=== PATIENT | male | born 1935 | race Caucasian/White ===

== ENCOUNTER 2017-05-11 10:49 | Outpatient (RCR) | payer MEDICARE, OTHER, SELFPAY ==
[2017-05-11 11:11] LABS: Prothrombin Time Fingerstick 29.5 SEC (11.9-14.4)
== END 2017-05-11 11:00 | disposition home or self-care (01) ==
LOC: MTLAB 10:49
PROVIDERS: Family Provider Family Medicine; PCP Family Medicine; Visit Provider Internal Medicine Cardiovascular Disease
DX: I48.0 Paroxysmal atrial fibrillation (principal); Z79.899 Other long term (current) drug therapy
CPT/HCPCS: 36416; 85610

== ENCOUNTER 2017-06-07 13:50 | Outpatient (RCR) | payer MEDICARE, OTHER, SELFPAY ==
[2017-06-07 14:06] LABS: Prothrombin Time Fingerstick 28.3 SEC (11.9-14.4)
== END 2017-06-07 15:00 | disposition home or self-care (01) ==
LOC: MTLAB 13:50
PROVIDERS: Family Provider Family Medicine; PCP Family Medicine; Visit Provider Internal Medicine Cardiovascular Disease
DX: I48.0 Paroxysmal atrial fibrillation (principal); Z79.899 Other long term (current) drug therapy
CPT/HCPCS: 36416; 85610

== ENCOUNTER 2017-08-10 14:01 | Inpatient (IN) | payer MEDICARE, OTHER, SELFPAY ==
[2017-08-10 14:03] VITALS: BP 181/94; PULSE 64; RESP 17; TEMP 36.9; O2SAT 97; BMI 34.9
[2017-08-10] MEDS: morphine 10 MG/ML Syringe 8 MG IM (15:17)
--- NOTE | 2017-08-10 15:30 | RAD_ITS ---
STUDY: X-RAY - LUMBAR SPINE REASON FOR EXAM: Male, 82 years old. Low back pain. TECHNIQUE: 3 view(s) of the lumbar spine were obtained. COMPARISON: None FINDINGS: Normal lumbar lordosis. There is no substantial scoliosis. There is a normal alignment of the vertebrae. There is diffuse demineralization with multi-level endplate spondylosis. Mild loss of height of the L1 vertebrae. There is atherosclerotic calcification of the abdominal aorta without a demonstrated aneurysm. RAD/Lumbar Spine 2 or 3 Views IMPRESSION: Degenerative changes of the spine, as detailed above. Mild loss of height of the L1 vertebrae. Electronically Signed: Osman Donohue MD at 16:02 EDT Tel [phone], Service support ,
[2017-08-10] MEDS: Ondansetron ODT 4 MG Tablet PO (16:33)
[2017-08-10] MEDS: oxyCODONE 5 MG Tablet PO (16:33)
[2017-08-10 17:20] VITALS: BMI 35.0
[2017-08-10 17:29] VITALS: BP 180/88; PULSE 55; TEMP -8.8; TEMP 16; O2SAT 94
--- NOTE | 2017-08-10 17:33 | NURSING ---
208 OBS BACK PAIN KITTOE
--- NOTE | 2017-08-10 17:48 | ED.DCSUM_ITS ---
- ER Visit Summary Date of Service: 08/10/17 Chief Complaint: Back pain History of Present Illness: The patient is a [address] Wilfrid Gregory and Dr. Espinal. Reports that he had an epidural injection by Dr. Garcia 6 days ago and he was doing much better since that time. Reports that today he tried to lift the tongue of the trailer onto his truck hitch and felt a pop in his back. Also reports that he heard a crack with this. Since that time he has had an aching pain that is 10 out of 10 with movement and 7 out of 10 when he remains still. No radiation to his legs. No numbness or weakness. No problems with his bowels or his bladder. He denies any fever, chills, abdominal pain, or other red flags. Physical Examination: Vitals: Stable. Afebrile. General: A&O x 3. NAD. Cardiovascular exam: Irregular rhythm with a 2 out of 6 systolic murmur. Respiratory exam: Clear to auscultation bilaterally. No wheezes or stridor. Abdominal exam: Soft, nontender, nondistended, normal bowel sounds. No peritoneal signs. Back: Diffuse moderate tenderness to palpation over the lumbar spine and the paraspinous musculature in the lumbar region. No point tenderness. Negative straight leg bilaterally. 5/5 DF, PF, EHL bilaterally. Normal sensation to light touch throughout. Extremity: No clubbing, cyanosis, or edema. 1+ dorsalis pedis pulse bilaterally. Test Results: LS spine x-rays show chronic changes. Emergency Department Course and Treatment: Patient was treated the dose of morphine IM. He was given Zofran and oxycodone p.o. He is unable to even sit up in bed let alone walk. Treatment Plan: The patient was discussed with Dr. Washington. He will be admitted to the hospital for further evaluation and treatment. Disposition: Admitted in stable condition. Impression: 1. Intractable back pain. 2. Inability to ambulate. This note was generated with [employer] dictation software. It may contain incorrect words, spelling, and punctuation that were not noted in review of the chart prior to signing ED Disposition - Plan for ED Patient: Chief Complaint: Back
--- NOTE | 2017-08-10 17:50 | PCM.HP.STD ---
Problem List (1) Acute back pain Status: Acute Qualifiers: Back pain location: low back pain (2) Abnormal electrocardiogram Status: Chronic (3) Atherosclerotic heart disease of [place] coronary artery without angina pectoris Status: Chronic Qualifiers: Comment: 06/2005 taxus stent to LAD . (4) Atrial fibrillation Status: Chronic Qualifiers: Atrial fibrillation type: chronic Qualified Code(s): I48.2 - Chronic atrial fibrillation (5) CAD (coronary artery disease) Status: Chronic (6) Chest heaviness Status: Chronic (7) GERD (gastroesophageal reflux disease) Status: Chronic (8) HLD (hyperlipidemia) Status: Chronic Qualifiers: (9) HLD (hyperlipidemia) Status: Chronic (10) HTN (hypertension) Status: Chronic Qualifiers: Hypertension type: essential hypertension Qualified Code(s): I10 - Essential (primary) hypertension (11) HTN (hypertension) Status: Chronic Qualifiers: Hypertension type: essential hypertension Qualified Code(s): I10 - Essential (primary) hypertension (12) Heart palpitations Status: Chronic (13) History of coronary artery stent placement Status: Chronic (14) History of coronary artery stent placement Status: Chronic Comment: 06/2005 taxus stent to LAD . (15) History of hypothyroidism Status: Chronic (16) Iatrogenic hypothyroidism Status: Chronic (17) group home current use of anticoagulant Status: Chronic (18) Obesity (BMI 30.0-34.9) Status: Chronic (19) Osteoarthritis Status: Chronic Qualifiers: Osteoarthritis location: multiple joints Osteoarthritis type: primary Qualified Code(s): M15.0 - Primary generalized (osteo)arthritis (20) PAF (paroxysmal atrial fibrillation) Status: Chronic (21) Pain Status: Chronic (22) Palpitations Status: Chronic (23) Paroxysmal atrial fibrillation Status: Chronic (24) Physical debility Status: Chronic (25) S/P PTCA (percutaneous transluminal coronary angioplasty) Status: Chronic (26) S/P left unicompartmental knee replacement Status: Chronic (27) Subclinical hyperthyroidism Status: Chronic (28) Surgical wound infection Status: Chronic (29) Weakness generalized Status: Chronic History of Present Illness Date of Admission: 08/10/17 Chief Complaint: Low back ache The patient is a 82 year old M past medical history significant for CAD with previous stent placement, paroxysmal A. fib hypertension dyslipidemia who presents with low back pain. And had apparently undergone epidural steroid injection on 08/04/[address] Garcia on account of back pain. He apparently did get some relief from the procedure. He was lifting the trailer on the day of his admission at home when he had a pop low back. He did experience significant pain. He called the squad and was brought to the emergency department. Imaging studies obtained in the ED demonstratedDegenerative changes of the spine, as detailed above. Mild loss of height of the L1 vertebrae. 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 Paroxysmal atrial fibrillation (Chronic) Palpitations (Chronic) Abnormal electrocardiogram (Chronic) History of coronary artery stent placement (Chronic) 06/2005 taxus stent to LAD . S/P left unicompartmental knee replacement (Chronic) Pain (Chronic) Physical debility (Chronic) Surgical wound infection (Chronic) Subclinical hyperthyroidism (Chronic) Heart palpitations (Chronic) Chest heaviness (Chronic) CAD (coronary artery disease) (Chronic) History of coronary artery stent placement (Chronic) Weakness generalized (Chronic) HLD (hyperlipidemia) (Chronic) Osteoarthritis (Chronic) PAF (paroxysmal atrial fibrillation) (Chronic) GERD (gastroesophageal reflux disease) (Chronic) HTN (hypertension) (Chronic) History of hypothyroidism (Chronic) Obesity (BMI 30.0-34.9) (Chronic) S/P PTCA (percutaneous transluminal coronary angioplasty) (Chronic) Atrial fibrillation (Chronic) Allergies lidocaine Allergy (Verified 08/10/17 14:02) Shortness of breath/PVC'S lovastatin Allergy (Verified 08/10/17 14:02) Unknown niacin [From Advicor] Allergy (Verified 08/10/17 14:02) Unknown prazosin HCl [From Minipress] Allergy (Verified 08/10/17 14:02) Unknown Home Medications: Ambulatory Orders Medication Instructions Recorded Glucosamine/MSM/Chondroitin A 1 ea PO DAILY 06/11/13 [Glucosamine Chondroit MSM Tab] Levothyroxine [Synthroid] 125 mcg PO DAILY 06/11/13 Multivitamins,Therapeutic 1 tab PO DAILY 06/11/13 [Multivitamin] [place]-3 Fatty Acids/Fish Oil 1,000 mg PO DAILY 06/11/13 [Jackson 3 1,000 mg Softgel] Pantoprazole Sodium [Protonix] 40 mg PO DAILY 06/11/13 Aspirin E.C. [Ecotrin] 81 mg PO QHS 02/14/14 Magnesium Oxide [Mag-Ox 400] 400 mg PO DAILY 06/28/14 Nitroglycerin [Nitrostat] 0.4 mg SUBLINGUAL Q5M PRN 07/12/14 atorvastatin 20 mg tablet 20 mg PO QHS 90 Days #90 tab 05/10/17 benazepril 20 mg tablet 20 mg PO DAILY 05/10/17 metoprolol tartrate 50 mg tablet 50 mg PO DAILY 05/10/17 potassium chloride ER 8 mEq 8 meq PO DAILY 05/10/17 capsule,extended release warfarin 5 mg tablet 5 mg PO DAILY 05/12/17 Amiodarone HCl [Cordarone] 200 mg PO DAILY 08/10/17 Amlodipine Besylate [Norvasc] 10 mg PO DAILY 08/10/17 Hydrochlorothiazide 25 mg PO DAILY 08/10/17 Metoprolol Tartrate [Lopressor 25 mg PO QHS 08/10/17 (Beta Che)] Surgical History: angioplasty, cholecystectomy, herniorrhaphy, total knee arthroplasty, tonsillectomy, - - Hemmert ectomy, right shoulder arthroscopic surgery. Psychiatric History: No pertinent psych hx Smoking Status: Never smoker - *Family History Maternal History Items: Heart Disease, Hypertension Paternal History Items: Cancer Sibling History Items: Heart Disease Review of Systems Constitutional: Denies: Anorexia, Chills, Fever, Night Sweats, Weight Change HEENT: Denies: Head Aches, Sinus Congestion, Sinus Drainage Cardiovascular: Denies: Chest Pain, Orthopnea, Palpitations, Paroxysmal Noc. Dyspnea Respiratory: Denies: Cough, Shortness of breath at rest, Shortness of breath upon exertion, Sputum production Gastrointestinal: Denies: Abdominal Pain, Hematemesis, Hematochezia, Nausea, Melena, Vomiting Genitourinary: Denies: Dysuria, Frequency, Hematuria, Urgency Musculoskeletal: Reports: Back Pain. Denies: Joint Pain, Joint Tenderness Skin: Denies: Rash Neurological: Denies: Focal weakness, Numbness, Tingling Psychiatric: Denies: Homicidal Ideations, Suicidal Ideations Hematologic/ Lymphatic: Denies: Easy Bruising, Easy Bleeding VTE Information - Inpt Only VTE Present on Admission: No VTE Mechan Device Prophylaxis: Knee High CHAN Hose VTE Pharm Prophylaxis ordered?: Yes Patient Problems: Active and Suspected Problems (Last Updated 05/12/17 @ 11:02 by Edwina Zapata) Acute back pain (Acute) Objective: GENERAL: cooperative HEENT: Clear conjunctiva, NECK; supple, normal thyroid, CHEST: Clear to auscultation bilaterally, HEART: Regular S1 S2, ABDOMEN: soft, normoactive bowel sounds, RECTAL: deferred EXTREMITIES: No edema, no clubbing, no cyanosis. PROGRAM OFFICER: Awake, no lateralizing signs. SKIN: No rash - Physical Exam Vital Signs Temp Pulse Resp BP Pulse Ox 16 F L 55 L 17 180/88 H 94 08/10/17 17:29 08/10/17 17:29 08/10/17 14:03 08/10/17 17:29 08/10/17 17:29 Oxygen Delivery Method Room Air Weight: 104.326 kg Body Mass Index (BMI) 34.9 Assessment/Plan Active and Suspected Problems (Last Updated 05/12/17 @ 11:02 by Edwina Zapata) Acute back pain (Acute) Patient is an 82-year-old gentleman with multiple comorbidities presenting with acute low back pain after lifting a trailer 1. Acute low back pain suspected to be secondary to slipped disc with possible radiculopathy. Patient has been admitted to regular nursing floor for symptomatic management with steroid, OxyIR, Flexeril for muscle relaxation with consultation placed to Dr. Garcia with pain management 2. Paroxysmal A. fib rate controlled on amiodarone patient is on systemic anticoagulation with Coumadin ordered INR 3. CAD with previous stent placement patient currently on recommended medications denies chest pain 4. Dyslipidemia-patient is on statin therapy, continued at home dose 5. Hypertension on blood pressure control did continue with home regimen 6. GERD: Patient is on PPI 7. Hypothyroidism-patient is on levothyroxine home dose continued 8. DVT prophylaxis patient is on Coumadin held in anticipation of possible repeat epidural steroid injection by Dr. Garcia Code status Full Code Clinical Impression(s) from Imaging Studies Lumbar Spine X-Ray 08/10/17 15:30 IMPRESSION: Degenerative changes of the spine, as detailed above. Mild loss of height of the L1 vertebrae. Electronically Signed: Osman Donohue MD at 16:02 EDT Tel [phone], Service support , Code Visit OBSV E&M: [id number] Initial observation care L3
--- NOTE | 2017-08-10 17:53 | HP.PCM_ITS ---
Problem List (1) Acute back pain Status: Acute Qualifiers: Back pain location: low back pain (2) Abnormal electrocardiogram Status: Chronic (3) Atherosclerotic heart disease of [place] coronary artery without angina pectoris Status: Chronic Qualifiers: Comment: 06/2005 taxus stent to LAD . (4) Atrial fibrillation Status: Chronic Qualifiers: Atrial fibrillation type: chronic Qualified Code(s): I48.2 - Chronic atrial fibrillation (5) CAD (coronary artery disease) Status: Chronic (6) Chest heaviness Status: Chronic (7) GERD (gastroesophageal reflux disease) Status: Chronic (8) HLD (hyperlipidemia) Status: Chronic Qualifiers: (9) HLD (hyperlipidemia) Status: Chronic (10) HTN (hypertension) Status: Chronic Qualifiers: Hypertension type: essential hypertension Qualified Code(s): I10 - Essential (primary) hypertension (11) HTN (hypertension) Status: Chronic Qualifiers: Hypertension type: essential hypertension Qualified Code(s): I10 - Essential (primary) hypertension (12) Heart palpitations Status: Chronic (13) History of coronary artery stent placement Status: Chronic (14) History of coronary artery stent placement Status: Chronic Comment: 06/2005 taxus stent to LAD . (15) History of hypothyroidism Status: Chronic (16) Iatrogenic hypothyroidism Status: Chronic (17) long-term current use of anticoagulant Status: Chronic (18) Obesity (BMI 30.0-34.9) Status: Chronic (19) Osteoarthritis Status: Chronic Qualifiers: Osteoarthritis location: multiple joints Osteoarthritis type: primary Qualified Code(s): M15.0 - Primary generalized (osteo)arthritis (20) PAF (paroxysmal atrial fibrillation) Status: Chronic (21) Pain Status: Chronic (22) Palpitations Status: Chronic (23) Paroxysmal atrial fibrillation Status: Chronic (24) Physical debility Status: Chronic (25) S/P PTCA (percutaneous transluminal coronary angioplasty) Status: Chronic (26) S/P left unicompartmental knee replacement Status: Chronic (27) Subclinical hyperthyroidism Status: Chronic (28) Surgical wound infection Status: Chronic (29) Weakness generalized Status: Chronic History of Present Illness Date of Admission: 08/10/17 Chief Complaint: Low back ache The patient is a 82 year old M past medical history significant for CAD with previous stent placement, paroxysmal A. fib hypertension dyslipidemia who presents with low back pain. And had apparently undergone epidural steroid injection on 08/04/[address] Garcia on account of back pain. He apparently did get some relief from the procedure. He was lifting the trailer on the day of his admission at home when he had a pop low back. He did experience significant pain. He called the squad and was brought to the emergency department. Imaging studies obtained in the ED demonstratedDegenerative changes of the spine, as detailed above. Mild loss of height of the L1 vertebrae. 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 Paroxysmal atrial fibrillation (Chronic) Palpitations (Chronic) Abnormal electrocardiogram (Chronic) History of coronary artery stent placement (Chronic) 06/2005 taxus stent to LAD . S/P left unicompartmental knee replacement (Chronic) Pain (Chronic) Physical debility (Chronic) Surgical wound infection (Chronic) Subclinical hyperthyroidism (Chronic) Heart palpitations (Chronic) Chest heaviness (Chronic) CAD (coronary artery disease) (Chronic) History of coronary artery stent placement (Chronic) Weakness generalized (Chronic) HLD (hyperlipidemia) (Chronic) Osteoarthritis (Chronic) PAF (paroxysmal atrial fibrillation) (Chronic) GERD (gastroesophageal reflux disease) (Chronic) HTN (hypertension) (Chronic) History of hypothyroidism (Chronic) Obesity (BMI 30.0-34.9) (Chronic) S/P PTCA (percutaneous transluminal coronary angioplasty) (Chronic) Atrial fibrillation (Chronic) Allergies lidocaine Allergy (Verified 08/10/17 14:02) Shortness of breath/PVC'S lovastatin Allergy (Verified 08/10/17 14:02) Unknown niacin [From Advicor] Allergy (Verified 08/10/17 14:02) Unknown prazosin HCl [From Minipress] Allergy (Verified 08/10/17 14:02) Unknown Home Medications: Ambulatory Orders Medication Instructions Recorded Glucosamine/MSM/Chondroitin A 1 ea PO DAILY 06/11/13 [Glucosamine Chondroit MSM Tab] Levothyroxine [Synthroid] 125 mcg PO DAILY 06/11/13 Multivitamins,Therapeutic 1 tab PO DAILY 06/11/13 [Multivitamin] [place]-3 Fatty Acids/Fish Oil 1,000 mg PO DAILY 06/11/13 [[place] 3 1,000 mg Softgel] Pantoprazole Sodium [Protonix] 40 mg PO DAILY 06/11/13 Aspirin E.C. [Ecotrin] 81 mg PO QHS 02/14/14 Magnesium Oxide [Mag-Ox 400] 400 mg PO DAILY 06/28/14 Nitroglycerin [Nitrostat] 0.4 mg SUBLINGUAL Q5M PRN 07/12/14 atorvastatin 20 mg tablet 20 mg PO QHS 90 Days #90 tab 05/10/17 benazepril 20 mg tablet 20 mg PO DAILY 05/10/17 metoprolol tartrate 50 mg tablet 50 mg PO DAILY 05/10/17 potassium chloride ER 8 mEq 8 meq PO DAILY 05/10/17 capsule,extended release warfarin 5 mg tablet 5 mg PO DAILY 05/12/17 Amiodarone HCl [Cordarone] 200 mg PO DAILY 08/10/17 Amlodipine Besylate [Norvasc] 10 mg PO DAILY 08/10/17 Hydrochlorothiazide 25 mg PO DAILY 08/10/17 Metoprolol Tartrate [Lopressor 25 mg PO QHS 08/10/17 (Beta Che)] Surgical History: angioplasty, cholecystectomy, herniorrhaphy, total knee arthroplasty, tonsillectomy, - - Hemmert ectomy, right shoulder arthroscopic surgery. Psychiatric History: No pertinent psych hx Smoking Status: Never smoker - *Family History Maternal History Items: Heart Disease, Hypertension Paternal History Items: Cancer Sibling History Items: Heart Disease Review of Systems Constitutional: Denies: Anorexia, Chills, Fever, Night Sweats, Weight Change HEENT: Denies: Head Aches, Sinus Congestion, Sinus Drainage Cardiovascular: Denies: Chest Pain, Orthopnea, Palpitations, Paroxysmal Noc. Dyspnea Respiratory: Denies: Cough, Shortness of breath at rest, Shortness of breath upon exertion, Sputum production Gastrointestinal: Denies: Abdominal Pain, Hematemesis, Hematochezia, Nausea, Melena, Vomiting Genitourinary: Denies: Dysuria, Frequency, Hematuria, Urgency Musculoskeletal: Reports: Back Pain. Denies: Joint Pain, Joint Tenderness Skin: Denies: Rash Neurological: Denies: Focal weakness, Numbness, Tingling Psychiatric: Denies: Homicidal Ideations, Suicidal Ideations Hematologic/ Lymphatic: Denies: Easy Bruising, Easy Bleeding VTE Information - Inpt Only VTE Present on Admission: No VTE Mechan Device Prophylaxis: Knee High CHAN Hose VTE Pharm Prophylaxis ordered?: Yes Patient Problems: Active and Suspected Problems (Last Updated 05/12/17 @ 11:02 by Edwina Zapata) Acute back pain (Acute) Objective: GENERAL: cooperative HEENT: Clear conjunctiva, NECK; supple, normal thyroid, CHEST: Clear to auscultation bilaterally, HEART: Regular S1 S2, ABDOMEN: soft, normoactive bowel sounds, RECTAL: deferred EXTREMITIES: No edema, no clubbing, no cyanosis. 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 SKIN: No rash - Physical Exam Vital Signs Temp Pulse Resp BP Pulse Ox 16 F L 55 L 17 180/88 H 94 08/10/17 17:29 08/10/17 17:29 08/10/17 14:03 08/10/17 17:29 08/10/17 17:29 Oxygen Delivery Method Room Air Weight: 104.326 kg Body Mass Index (BMI) 34.9 Assessment/Plan Active and Suspected Problems (Last Updated 05/12/17 @ 11:02 by Edwina Zapata) Acute back pain (Acute) Patient is an 82-year-old gentleman with multiple comorbidities presenting with acute low back pain after lifting a trailer 1. Acute low back pain suspected to be secondary to slipped disc with possible radiculopathy. Patient has been admitted to regular nursing floor for symptomatic management with steroid, OxyIR, Flexeril for muscle relaxation with consultation placed to Dr. Garcia with pain management 2. Paroxysmal A. fib rate controlled on amiodarone patient is on systemic anticoagulation with Coumadin ordered INR 3. CAD with previous stent placement patient currently on recommended medications denies chest pain 4. Dyslipidemia-patient is on statin therapy, continued at home dose 5. Hypertension on blood pressure control did continue with home regimen 6. GERD: Patient is on PPI 7. Hypothyroidism-patient is on levothyroxine home dose continued 8. DVT prophylaxis patient is on Coumadin held in anticipation of possible repeat epidural steroid injection by Dr. Garcia Code status Full Code Clinical Impression(s) from Imaging Studies Lumbar Spine X-Ray 08/10/17 15:30 IMPRESSION: Degenerative changes of the spine, as detailed above. Mild loss of height of the L1 vertebrae. Electronically Signed: Osman Donohue MD at 16:02 EDT Tel [phone], Service support , Code Visit OBSV E&M: [id number] Initial observation care L3
[2017-08-10 18:18] VITALS: BMI 32.7
[2017-08-10 18:24] VITALS: BP 149/89; PULSE 54; RESP 14; TEMP 36.8; O2SAT 95
[2017-08-10 19:06] LABS: Absolute Lymphocyte Count 0.98 X10^3/ul (0.83-4.51); Absolute Neutrophil Count 8.9 X10^3/uL (2.0-7.7); Basophil# 0.01 X10^3/uL; Basophil% 0.1 % (0-1); Eosinophil# 0.06 X10^3/uL; Eosinophils% 0.6 % (0-5); Hematocrit 43.8 % (40-54); Hemoglobin 14.9 g/dl (13.0-16.5); Lymphocyte # 0.98 X10^3/ul (4.0); Mean Corpuscular Hgb 31.4 pg (27.0-32.0); Mean Corpuscular Volume 92.4 fL (80-94); Mean Platelet Vol. 9.8 fl (6.2-12.0); Monocyte# 0.83 X10^3/uL; Monocyte% 7.7 % (0-10); Neutrophil # 8.91 X10^3/uL (2.7-7.7); Neutrophil % 82.2 % (47-70); POSITIVE COUNT NO; POSITIVE DIFFERENTIAL NO; POSITIVE MORPHOLOGY NO; Platelet Count 190 K/mm3 (150-450); RBC Distribution Width CV 13.4 % (11.6-14.6); Red Blood Count 4.74 M/mm3 (4.6-6.2); White Blood Count 10.8 K/mm3 (4.4-11.0)
[2017-08-10 19:17] LABS: Magnesium 2.1 mg/dL (1.6-2.6)
[2017-08-10 19:20] LABS: International Normalized Ratio 1.8; Prothrombin Time (Protime)PT. 20.7 SECONDS (11.7-14.9)
[2017-08-10] MEDS: Aspirin E.C. 81 MG Tablet PO (21:12)
[2017-08-10] MEDS: Ondansetron 4 MG/2 ML Vial IV (21:12)
[2017-08-10 21:13] VITALS: BP 139/79; PULSE 64
[2017-08-10] MEDS: Metoprolol Tartrate 25 MG Tablet PO (21:13)
[2017-08-10] MEDS: Atorvastatin Calcium 20 MG Tablet PO (21:13)
[2017-08-10 21:25] VITALS: BP 139/79; PULSE 64; RESP 18; TEMP 36.9; O2SAT 93
[2017-08-11] MEDS: oxyCODONE 5 MG Tablet PO (01:58)
[2017-08-11 02:03] VITALS: BP 140/79; PULSE 54; RESP 18; TEMP 36.7; O2SAT 92
[2017-08-11 05:51] LABS: International Normalized Ratio 1.7; Prothrombin Time (Protime)PT. 19.6 SECONDS (11.7-14.9)
[2017-08-11] MEDS: Levothyroxine 125 MCG Tablet PO (05:58)
[2017-08-11] MEDS: 0.9% NaCl Peripheral Flush Adult/Peds IV ×3 (05:59→21:08)
[2017-08-11 06:27] LABS: Anion Gap 9 (5-15); BUN 23 mg/dL (7-18); Chloride 101 mmol/L (98-107); Creatinine, Serum 1.15 mg/dL (0.70-1.30); EST Glomerular Filtration Rate 65 mL/min (>60); Est Glom Filt Rate - Afr Amer 78 mL/min (>60); Estimated Creatinine Clearance 47.09 ml/min; Glucose 137 mg/dL (74-106); Potassium 4.7 mmol/L (3.5-5.1); Sodium Level 136 mmol/L (136-145)
[2017-08-11 06:32] LABS: Hematocrit 44.3 % (40-54); Hemoglobin 15.2 g/dl (13.0-16.5); Mean Corp Hgb Conc 34.3 g/gl (32-36); Mean Corpuscular Hgb 31.9 pg (27.0-32.0); Mean Corpuscular Volume 93.1 fL (80-94); Mean Platelet Vol. 9.9 fl (6.2-12.0); Platelet Count 182 K/mm3 (150-450); RBC Distribution Width CV 13.4 % (11.6-14.6); RBC Distribution Width SD 45.6 fl (35.1-43.9); Red Blood Count 4.76 M/mm3 (4.6-6.2); White Blood Count 6.2 K/mm3 (4.4-11.0)
[2017-08-11 06:39] LABS: Scan Indicated on CBC? Y/N NO
--- NOTE | 2017-08-11 07:20 | PCM.PN.HOSP ---
Patient Problems: Active and Suspected Problems (Last Updated 05/12/17 @ 11:02 by Edwina Zapata) Acute back pain (Acute) Subjective: Seen still complains of significant back pain. Was apparently seen by Dr. Garcia on 08/10/2017 is for patient undergo kyphoplasty on 08/12/2017. Objective: GENERAL: cooperative HEENT: Clear conjunctiva, NECK; supple, normal thyroid, CHEST: Clear to auscultation bilaterally, HEART: Regular S1 S2, ABDOMEN: soft, normoactive bowel sounds, RECTAL: deferred EXTREMITIES: No edema, no clubbing, no cyanosis. 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 SKIN: No rash Vitals/I&O's: Vital Signs Temp Pulse Resp BP Pulse Ox 98.1 F 54 L 18 140/79 H 92 08/11/17 02:03 08/11/17 02:03 08/11/17 02:03 08/11/17 02:03 08/11/17 02:03 Oxygen Delivery Method Room Air Weight: 97.7 kg Body Mass Index (BMI) 32.7 Laboratory Results 08/10/17 18:24: WBC 10.8, RBC 4.74, Hgb 14.9, Hct 43.8, MCV 92.4, MCH 31.4, MCHC 34.0, RDW 13.4, RDW Differential 45.0 H, Plt Count 190, MPV 9.8, Immature Gran % (Auto) 0.400, Neut % (Auto) 82.2 H, Lymph % (Auto) 9.0 L, Barrow % (Auto) 7.7, Eos % (Auto) 0.6, Baso % (Auto) 0.1, Absolute Neuts (auto) 8.9 H, Absolute Lymphs (auto) 0.98, Total Counted Not Reportable 08/10/17 18:24: PT 20.7 H, INR 1.8 08/10/17 18:24: Magnesium 2.1 08/11/17 05:20: WBC 6.2, RBC 4.76, Hgb 15.2, Hct 44.3, MCV 93.1, MCH 31.9, MCHC 34.3, RDW 13.4, RDW Differential 45.6 H, Plt Count 182, MPV 9.9 08/11/17 05:20: PT 19.6 H, INR 1.7 08/11/17 05:20: Sodium 136, Potassium 4.7, Chloride 101, Carbon Dioxide 26.0, Anion Gap 9, BUN 23 H, Creatinine 1.15, Estim Creat Clear Calc 47.09, Est GFR (MDRD) Af Amer 78, Est GFR (MDRD) Non-Af 65, BUN/Creatinine Ratio 20.0, Glucose 137 H, Calcium 9.0 Current Medications Acetaminophen (Tylenol) 650 mg PO Q6H PRN PRN PRN Reason: Mild Pain (scale 0-3)/T>100.7 Al Hydroxide/Mg Hydroxide (Mylanta Ii) 30 ml PO Q6H PRN PRN PRN Reason: Gastric Burning Albuterol Sulfate (Ventolin Aerosols) 2.5 mg INHALATION Q2H PRN PRN PRN Reason: SHORTNESS OF BREATH Amiodarone HCl (Cordarone) 200 mg PO DAILY [facility] Amlodipine Besylate (Norvasc) 10 mg PO DAILY [facility] Aspirin (Ecotrin) 81 mg PO QHS [facility] Last Admin: 08/10/17 21:12 Dose: 81 mg Atorvastatin Calcium (Lipitor) 20 mg PO QHS [facility] Last Admin: 08/10/17 21:13 Dose: 20 mg Bisacodyl (Dulcolax) 10 mg RECTAL DAILY PRN PRN PRN Reason: Constipation Cyclobenzaprine HCl (Flexeril) 5 mg PO TID [facility] Last Admin: 08/11/17 05:58 Dose: 5 mg Diphenhydramine HCl (Benadryl) 25 mg PO QHS PRN PRN PRN Reason: itching, insomnia Docusate Sodium (Colace) 200 mg PO BID PRN PRN PRN Reason: Constipation Hydrochlorothiazide (Hctz) 25 mg PO DAILY [facility] Levothyroxine Sodium (Synthroid) 125 mcg PO DAILY@0600 [facility] Last Admin: 08/11/17 05:58 Dose: 125 mcg Lisinopril (Zestril) 20 mg PO DAILY [facility] Magnesium Hydroxide (Milk Of Magnesia) 30 ml PO DAILY PRN PRN PRN Reason: Constipation Magnesium Oxide (Mag-Ox 400) 400 mg PO DAILY [facility] Methylprednisolone (Solu-Medrol) 40 mg IV Q8 [facility] Last Admin: 08/11/17 05:59 Dose: 40 mg Metoprolol Tartrate (Lopressor (Beta Che)) 25 mg PO QHS [facility] Last Admin: 08/10/17 21:13 Dose: 25 mg Metoprolol Tartrate (Lopressor (Beta Che)) 50 mg PO DAILY [facility] Morphine Sulfate () 2 - 4 mg IV Q3H PRN PRN PRN Reason: Severe Pain (pain scale 6-10) Morphine Sulfate () 2 - 4 mg IV Q3H PRN PRN PRN Reason: Severe Pain (pain scale 6-10) [facility]) [facility] Nitroglycerin (Nitrostat) 0.4 mg SUBLINGUAL Q5M PRN PRN Reason: Chest Pain Ondansetron HCl (Zofran) 4 mg IV Q8H PRN PRN PRN Reason: Nausea Last Admin: 08/10/17 21:12 Dose: 4 mg Oxycodone HCl (Oxyir) 5 mg PO Q4H PRN PRN PRN Reason: Moderate Pain (pain scale 4-5) Last Admin: 08/11/17 01:58 Dose: 5 mg Pantoprazole Sodium (Protonix) 40 mg PO DAILY [facility] Polyethylene Glycol (Miralax) 17 gm PO DAILY [facility] Sodium Chloride () 5 - 30 ml IV UD PRN PRN Reason: SALINE FLUSH Last Admin: 08/11/17 05:59 Dose: 10 ml Medical Necessity - Tobacco Use Smoking Status: Never smoker Assessment/Plan Active and Suspected Problems (Last Updated 05/12/17 @ 11:02 by Edwina Zapata) Acute back pain (Acute) Patient is an 82-year-old gentleman with multiple comorbidities presenting with acute low back pain after lifting a trailer 1. Acute low back pain suspected to be secondary to slipped disc with possible radiculopathy. Patient has been admitted to regular nursing floor for symptomatic management with steroid, OxyIR, Flexeril for muscle relaxation with consultation placed to Dr. Garcia with pain management. Was apparently seen by Dr. Garcia on 08/10/2017 is for patient undergo kyphoplasty on 08/12/2017. 2. Paroxysmal A. fib rate controlled on amiodarone patient is on systemic anticoagulation with Coumadin ordered INR 3. CAD with previous stent placement patient currently on recommended medications denies chest pain 4. Dyslipidemia-patient is on statin therapy, continued at home dose 5. Hypertension on blood pressure control did continue with home regimen 6. GERD: Patient is on PPI 7. Hypothyroidism-patient is on levothyroxine home dose continued 8. DVT prophylaxis patient is on Coumadin held in anticipation of possible repeat epidural steroid injection by Dr. Garcia Code status Full Code Clinical Impression(s) from Imaging Studies Lumbar Spine X-Ray 08/10/17 15:30 IMPRESSION: Degenerative changes of the spine, as detailed above. Mild loss of height of the L1 vertebrae. Electronically Signed: Osman Donohue MD at 16:02 EDT Tel [phone], Service support , Code Visit OBSV E&M: 62043 Subsequent observation care L3
[2017-08-11 08:05] VITALS: BP 154/87; PULSE 64; RESP 18; TEMP 36.8; O2SAT 95
[2017-08-11] MEDS: Lisinopril 20 MG Tablet PO (08:05)
[2017-08-11] MEDS: Multivitamins,Therapeutic Tablet 1 TABLET PO (08:06)
[2017-08-11] MEDS: Pantoprazole Sodium 40 MG Tablet PO (08:06)
[2017-08-11] MEDS: Amiodarone 200 MG Tablet PO (08:06)
[2017-08-11] MEDS: hydroCHLOROthiazide 25 MG Tablet PO (08:06)
[2017-08-11] MEDS: amLODIPine 10 MG Tablet PO (08:06)
[2017-08-11] MEDS: Magnesium Oxide 400 MG Tablet PO (08:06)
[2017-08-11 08:07] VITALS: PULSE 65
[2017-08-11] MEDS: Metoprolol Tartrate 50 MG Tablet PO (08:07)
[2017-08-11] MEDS: Polyethylene Glycol 3350 17 GM PACKET PO (08:07)
--- NOTE | 2017-08-11 13:41 | CASEMGMT ---
Addendum entered by Alysia Eddy 08/11/17 14:32: SW did call pt's [employer] insurance to check on SNF coverage. Pt's [employer] is a separate PPO plan, and it would cover SNF at 80% for in network, and 50% for out of network, up to 90 days, subject to precert. Pt's maximum out of pocket for individual is $4000 per year. SW reviewed this information w/pt and , and gave them a list of in network SNF's w/Cigna should it be needed. SW will follow up w/pt tomorrow. ZUNILDA Dominguez, CHILD CUSTODY EVALUATOR Original Note: SW met w/pt and in the room in regard to prior level of function and discharge plan. Pt states prior to this, was fully independent, active. Pt lives home w/ in a one level home, with a basement; he does go downstairs to feed the cat. Pt states had an injection w/Dr. Garcia last week and was feeling good, was working on [employer] and painting and took a break to take a lawnmower in for repair. When he lifted something up a couple of inches off the ground, he felt and thought he heard something in his back, and has been having difficulty moving since then. Pt states they had to call the squad to bring him in here. Pt states he is moving better in the bed, but not has been out of bed since here. Pt is to have a kyphoplasty w/Dr. Garcia tomorrow. Pt has been to [facility] before, after a knee replacement. SW explained the Medicare requirements for SNF coverage, that pt would need to be in the hospital as an inpt 3 midnights, and the first night he was here observation. SW explained if SNF is needed, it would be private pay or depending on their financial situation could apply for Medicaid. Pt states he has [employer] and [employer] also. SW explained will continue to follow. SW will follow up w/pt after the kyphoplasty and PT/OT tomorrow. ZUNILDA Dominguez, CHILD CUSTODY EVALUATOR
[2017-08-11] MEDS: Phytonadione (Vit K) 10 MG/ML Ampul 5 MG PO (14:17)
[2017-08-11 14:20] VITALS: BP 145/84; PULSE 60; RESP 18; TEMP 36.7; O2SAT 97
--- NOTE | 2017-08-11 15:51 | CHAPLAIN ---
Type of Pastoral Visit _x__ Initial Visit ___ Follow-up Visit ___ On-call Visit ___ General Patient Visit ___ Spiritual Assessment ___ Family Conference ___ Bereavement ___ Rapid Response ___ Code Blue ___ Other (describe below) Pastoral Care Referral From _x__ Patient ___ Family ___ Nurse ___ Physician ___ [employer] ___ Casing Soaker ___ Other (describe below) Sacrament/Intervention _x__ Active listening ___ Anointing ___ Gnosticist ___ Bereavement ___ Communion _x__ Josy exploration ___ ___ Life review _x__ Prayer ___ Reconciliation ___ Sacrament of Sick ___ Supportive presence ___ Wedding ___ Other (describe below) Pastoral Comments
[2017-08-11] MEDS: Atorvastatin Calcium 20 MG Tablet PO (21:06)
[2017-08-11] MEDS: Aspirin E.C. 81 MG Tablet PO (21:06)
[2017-08-11 21:07] VITALS: PULSE 56
[2017-08-11] MEDS: Metoprolol Tartrate 25 MG Tablet PO (21:07)
[2017-08-11] MEDS: Magnesium Hydroxide 30 ML UDC PO (21:14)
[2017-08-11 21:21] VITALS: BP 130/63; PULSE 56; RESP 18; TEMP 37.1; O2SAT 94
[2017-08-12] VITALS (12 sets, daily range): BP systolic 121–158; BP diastolic 59–80; PULSE 52–68; RESP 14–18; TEMP 36.5–37; O2SAT 92–96; BMI 32.7; BMI 35.0
--- NOTE | 2017-08-12 06:00 | EKG12_ITS ---
Test Reason : AM EKG Blood Pressure : / mmHG Vent. Rate : 054 BPM Atrial Rate : 054 BPM P-R Int : 212 ms QRS Dur : 124 ms QT Int : 464 ms P-R-T Axes : 036 -46 -15 degrees QTc Int : 440 ms Sinus bradycardia with 1st degree A-V block Left axis deviation Nonspecific intra ventricular conduciton Inferior infarct , age undetermined, cannot be excluded Abnormal ECG Confirmed by YAYA CARDENAS, ALVARO ([id number]), purchase request editor JOSE DE LA CRUZ ([id number]) on 08/23/2017 3:50:31 PM Referred By: ROC Confirmed By:ALVARO JAVIER MD
[2017-08-12 06:07] LABS: Hematocrit 42.4 % (40-54); Hemoglobin 14.7 g/dl (13.0-16.5); Mean Corp Hgb Conc 34.7 g/gl (32-36); Mean Corpuscular Volume 92.2 fL (80-94); Mean Platelet Vol. 9.5 fl (6.2-12.0); Platelet Count 199 K/mm3 (150-450); RBC Distribution Width CV 13.2 % (11.6-14.6); RBC Distribution Width SD 43.8 fl (35.1-43.9); White Blood Count 15.7 K/mm3 (4.4-11.0)
[2017-08-12 06:17] LABS: Scan Indicated on CBC? Y/N NO
[2017-08-12 06:40] LABS: Anion Gap 8 (5-15); BUN 35 mg/dL (7-18); BUN/Creat Ratio 28.2 RATIO (10-20); Calcium,Total 8.9 mg/dL (8.5-10.1); Chloride 103 mmol/L (98-107); Creatinine, Serum 1.24 mg/dL (0.70-1.30); EST Glomerular Filtration Rate 59 mL/min (>60); Est Glom Filt Rate - Afr Amer 72 mL/min (>60); Estimated Creatinine Clearance 43.67 ml/min; Glucose 146 mg/dL (74-106); Potassium 4.5 mmol/L (3.5-5.1); Sodium Level 137 mmol/L (136-145); Thyroid Stim Hormone (TSH) 0.69 uIU/mL (0.358-3.74)
[2017-08-12] MEDS: oxyCODONE 5 MG Tablet PO ×2 (06:58→18:12)
[2017-08-12] MEDS: Metoprolol Tartrate 50 MG Tablet PO (06:59)
[2017-08-12 07:11] LABS: International Normalized Ratio 1.4; Prothrombin Time (Protime)PT. 17.6 SECONDS (11.7-14.9)
--- NOTE | 2017-08-12 07:30 | BON_PTH ---
PATIENT: ALVARO ZAMUDIO LOC: MS2 U#:[id number] AGE/SX: 82/M ROOM[facility] RE08/11/[address]: Dr. Chinmay Quiroz MD : [id number] BED: 1 DIS: 08/13/2017 SPEC #: [id number] RECD: 08/12/17 15:23 STATUS: RAVEN REQ #: [id number] JARROD: 08/12/17 07:[address]: Gavin Garcia DEPT: SURGICAL PATHOLOGY RECD BY: Enrique Mora ENTERED: 08/15/17 09:52 SP TYPE: Bone OTHR DR: MD Dr. Chinmay Lopez MD Dr. John K Miller, MD Tissues: Vertebra, NOS Procedures: Surgery Specimen Level IV Comments: @ Ordering doctor for DEC edited from to @ by RGOOD at 08/15/17 1531 @ Ordering doctor for SUIV edited from to @ by RGOOD at 08/15/17 1531 @ Submitting doctor edited from to @ by RGOOD at 08/15/17 1531 HEADER OPERATION: Kyphoplasty PRE-OP DIAGNOSIS: Compression fracture L1 TISSUE SUBMITTED: L1 vertebral body MICROSCOPIC DIAGNOSIS L1 vertebral body, compression fracture: Hematopoietic marrow with trilineage hematopoiesis and blood clots. See comment. Negative for malignancy. TIEN:collin 08/16/17 COMMENT Bony tissue is not identified. MICROSCOPIC DESCRIPTION Slides are reviewed. GROSS DESCRIPTION Received in fixative is one container labeled with the patient's name and designated L1 vertebral body. The specimen consists of multiple irregular fragments of light to dark rodriguez soft tissue that in aggregate measure 2.5 x 2 x <0.1 cm. The specimen is submitted in its entirety in one cassette. / AM:collin 08/15/17 TC:5 CPT: 60758
--- NOTE | 2017-08-12 08:14 | PCM.PN.HOSP ---
Patient Problems: Active and Suspected Problems (Last Updated 05/12/17 @ 11:02 by Edwina Zapata) Acute back pain (Acute) Subjective: Patient seen, pain is relatively well controlled. Case was discussed with Dr. Garcia the day prior plan is for patient to undergo kyphoplasty this morning. INR is 1.4. This was communicated to Dr. Garcia Objective: GENERAL: cooperative HEENT: Clear conjunctiva, NECK; supple, normal thyroid, CHEST: Clear to auscultation bilaterally, HEART: Regular S1 S2, ABDOMEN: soft, normoactive bowel sounds, RECTAL: deferred EXTREMITIES: No edema, no clubbing, no cyanosis. 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 SKIN: No rash Vitals/I&O's: Vital Signs Temp Pulse Resp BP Pulse Ox 98.5 F 53 L 16 129/64 H 96 08/12/17 07:55 08/12/17 07:55 08/12/17 07:55 08/12/17 07:55 08/12/17 07:55 Oxygen Delivery Method Room Air Weight: 97.7 kg Body Mass Index (BMI) 32.7 Intake and Output for Last 24 Hours 08/10/17 08/11/17 08/12/17 23:59 23:59 23:59 Intake Total 350 / 600 Output Total 850 / 850 Balance 350 / 250 -850 / -850 Laboratory Results 08/12/17 05:30: PT Cancelled, INR Cancelled 08/12/17 05:30: WBC 15.7 H, RBC 4.60, Hgb 14.7, Hct 42.4, MCV 92.2, MCH 32.0, MCHC 34.7, RDW 13.2, RDW Differential 43.8, Plt Count 199, MPV 9.5 08/12/17 05:30: Sodium 137, Potassium 4.5, Chloride 103, Carbon Dioxide 26.0, Anion Gap 8, BUN 35 H, Creatinine 1.24, Estim Creat Clear Calc 43.67, Est GFR (MDRD) Af Amer 72, Est GFR (MDRD) Non-Af 59 L, BUN/Creatinine Ratio 28.2 H, Glucose 146 H, Calcium 8.9, TSH 0.69 08/12/17 06:40: PT 17.6 H, INR 1.4 Current Medications Acetaminophen (Tylenol) 650 mg PO Q6H PRN PRN PRN Reason: Mild Pain (scale 0-3)/T>100.7 Al Hydroxide/Mg Hydroxide (Mylanta Ii) 30 ml PO Q6H PRN PRN PRN Reason: Gastric Burning Albuterol Sulfate (Ventolin Aerosols) 2.5 mg INHALATION Q2H PRN PRN PRN Reason: SHORTNESS OF BREATH Amiodarone HCl (Cordarone) 200 mg PO DAILY [facility] Last Admin: 08/11/17 08:06 Dose: 200 mg Amlodipine Besylate (Norvasc) 10 mg PO DAILY [facility] Last Admin: 08/11/17 08:06 Dose: 10 mg Aspirin (Ecotrin) 81 mg PO QHS [facility] Last Admin: 08/11/17 21:06 Dose: 81 mg Atorvastatin Calcium (Lipitor) 20 mg PO QHS [facility] Last Admin: 08/11/17 21:06 Dose: 20 mg Bisacodyl (Dulcolax) 10 mg RECTAL DAILY PRN PRN PRN Reason: Constipation Cyclobenzaprine HCl (Flexeril) 5 mg PO TID [facility] Last Admin: 08/12/17 05:36 Dose: Not Given Diphenhydramine HCl (Benadryl) 25 mg PO QHS PRN PRN PRN Reason: itching, insomnia Docusate Sodium (Colace) 200 mg PO BID PRN PRN PRN Reason: Constipation Hydrochlorothiazide (Hctz) 25 mg PO DAILY [facility] Last Admin: 08/11/17 08:06 Dose: 25 mg Levothyroxine Sodium (Synthroid) 125 mcg PO DAILY@0600 [facility] Last Admin: 08/12/17 05:36 Dose: Not Given Lisinopril (Zestril) 20 mg PO DAILY [facility] Last Admin: 08/11/17 08:05 Dose: 20 mg Magnesium Hydroxide (Milk Of Magnesia) 30 ml PO DAILY PRN PRN PRN Reason: Constipation Last Admin: 08/11/17 21:14 Dose: 30 ml Magnesium Oxide (Mag-Ox 400) 400 mg PO DAILY [facility] Last Admin: 08/11/17 08:06 Dose: 400 mg Methylprednisolone (Solu-Medrol) 40 mg IV Q8 [facility] Last Admin: 08/12/17 05:37 Dose: 40 mg Metoprolol Tartrate (Lopressor (Beta Che)) 25 mg PO QHS [facility] Last Admin: 08/11/17 21:07 Dose: 25 mg Metoprolol Tartrate (Lopressor (Beta Che)) 50 mg PO DAILY [facility] Last Admin: 08/12/17 06:59 Dose: 50 mg Morphine Sulfate () 2 - 4 mg IV Q3H PRN PRN PRN Reason: Severe Pain (pain scale 6-10) Morphine Sulfate () 2 - 4 mg IV Q3H PRN PRN PRN Reason: Severe Pain (pain scale 6-10) [facility]it[facility]) [facility] Last Admin: 08/12/17 07:51 Dose: Not Given Nitroglycerin (Nitrostat) 0.4 mg SUBLINGUAL Q5M PRN PRN Reason: Chest Pain Ondansetron HCl (Zofran) 4 mg IV Q8H PRN PRN PRN Reason: Nausea Last Admin: 08/10/17 21:12 Dose: 4 mg Oxycodone HCl (Oxyir) 5 mg PO Q4H PRN PRN PRN Reason: Moderate Pain (pain scale 4-5) Last Admin: 08/12/17 06:58 Dose: 5 mg Pantoprazole Sodium (Protonix) 40 mg PO DAILY [facility] Last Admin: 08/11/17 08:06 Dose: 40 mg Polyethylene Glycol (Miralax) 17 gm PO DAILY [facility] Last Admin: 08/11/17 08:07 Dose: 17 gm Sodium Chloride () 5 - 30 ml IV UD PRN PRN Reason: SALINE FLUSH Last Admin: 08/11/17 21:08 Dose: 10 ml Medical Necessity - Tobacco Use Smoking Status: Never smoker Assessment/Plan Active and Suspected Problems (Last Updated 05/12/17 @ 11:02 by Edwina Zapata) Acute back pain (Acute) Patient is an 82-year-old gentleman with multiple comorbidities presenting with acute low back pain after lifting a trailer 1. Acute low back pain suspected to be secondary to slipped disc with possible radiculopathy. Patient has been admitted to regular nursing floor for symptomatic management with steroid, OxyIR, Flexeril for muscle relaxation with consultation placed to Dr. Garcia with pain management. Was apparently seen by Dr. Garcia on 08/10/2017 is for patient undergo kyphoplasty on 08/12/2017. 2. Paroxysmal A. fib rate controlled on amiodarone patient is on systemic anticoagulation with Coumadin ordered INR INR on 08/12/2017 is 1.4 3. CAD with previous stent placement patient currently on recommended medications denies chest pain 4. Dyslipidemia-patient is on statin therapy, continued at home dose 5. Hypertension on blood pressure control did continue with home regimen 6. GERD: Patient is on PPI 7. Hypothyroidism-patient is on levothyroxine home dose continued 8. DVT prophylaxis patient is on Coumadin held in anticipation of possible repeat epidural steroid injection by Dr. Garcia Code status Full Code Clinical Impression(s) from Imaging Studies Lumbar Spine X-Ray 08/10/17 15:30 IMPRESSION: Degenerative changes of the spine, as detailed above. Mild loss of height of the L1 vertebrae. Electronically Signed: Osman Donohue MD at 16:02 EDT Tel [phone], Service support , Code Visit OBSV E&M: 94625 Subsequent observation care L3
--- NOTE | 2017-08-12 11:59 | NURSING ---
report called to Jyoti Donovan RN in for pre-op
--- NOTE | 2017-08-12 12:28 | CASEMGMT ---
Pt went down for kyphoplasty procedure. As per RN, pt would like to go home this evening after the procedure. If pt is not able to discharge home, SW will follow up w/pt tomorrow, otherwise, pt will go home later today. ZUNILDA Domignuez, DIRECTOR OF RESEARCH
--- NOTE | 2017-08-12 13:00 | RAD_ITS ---
STUDY: X-RAY - LUMBAR SPINE REASON FOR EXAM: Male, 82 years old. Documentation of radiation use during kyphoplasty. TECHNIQUE: 9 view(s) of the lumbar spine were obtained. COMPARISON: Preoperative radiographs of the lumbar spine dated August 10, 2017. FINDINGS: Fluoroscopic radiation time used during the kyphoplasty is 126.9 seconds. Multiple images document kyphoplasty. Please see report by Dr. Garcia for additional details. RAD/Lumbar Spine 2 or 3 Views IMPRESSION: Documentation of fluoroscopic radiation use during kyphoplasty. Electronically Signed: Esperanza Gregory MD at 8:49 EDT , Service support ,
[2017-08-12 13:40] LABS: Prothrombin Time Fingerstick 15.4 SEC (11.9-14.4)
[2017-08-12] MEDS: Bupiv/Epi 0.5% Mpf 30 ML Vial (14:50)
[2017-08-12] MEDS: Lisinopril 20 MG Tablet PO (18:08)
[2017-08-12] MEDS: amLODIPine 10 MG Tablet PO (18:08)
[2017-08-12] MEDS: Amiodarone 200 MG Tablet PO (18:08)
[2017-08-12] MEDS: Pantoprazole Sodium 40 MG Tablet PO (18:09)
[2017-08-12] MEDS: hydroCHLOROthiazide 25 MG Tablet PO (18:09)
[2017-08-12] MEDS: Metoprolol Tartrate 25 MG Tablet PO (21:09)
[2017-08-12] MEDS: Atorvastatin Calcium 20 MG Tablet PO (21:09)
[2017-08-12] MEDS: Docusate Sodium 100 MG Capsule 200 MG PO (21:10)
[2017-08-12] MEDS: Aspirin E.C. 81 MG Tablet PO (21:11)
[2017-08-13 02:35] VITALS: BP 138/68; PULSE 51; RESP 16; TEMP 36.7; O2SAT 95
[2017-08-13] MEDS: 0.9% NaCl Peripheral Flush Adult/Peds IV (06:33)
[2017-08-13] MEDS: Levothyroxine 125 MCG Tablet PO (06:33)
[2017-08-13 07:43] VITALS: BP 140/71; PULSE 50; RESP 16; TEMP 36.5; O2SAT 94
[2017-08-13 07:53] LABS: International Normalized Ratio 3.1; Prothrombin Time (Protime)PT. 32.4 SECONDS (11.7-14.9)
[2017-08-13] MEDS: Polyethylene Glycol 3350 17 GM PACKET PO (08:02)
[2017-08-13] MEDS: oxyCODONE 5 MG Tablet PO (08:02)
[2017-08-13] MEDS: Pantoprazole Sodium 40 MG Tablet PO (08:02)
[2017-08-13] MEDS: Multivitamins,Therapeutic Tablet 1 TABLET PO (08:03)
[2017-08-13 08:16] VITALS: O2SAT 87
--- NOTE | 2017-08-13 08:20 | PCM.DC ---
- Discharge Diagnoses Current Active Problems: Current Active and Chronic Problems (Last Updated 05/12/17 @ 11:02 by Edwina Zapata) Acute back pain (Acute) You will use the following diet at home:: No restrictions Discharge Activity: May not drive while taking narcotic pain medications. Allergies/Adverse Reactions: Allergies lidocaine Allergy (Verified 08/10/17 14:02) Shortness of breath/PVC'S lovastatin Allergy (Verified 08/10/17 14:02) Unknown niacin [From Advicor] Allergy (Verified 08/10/17 14:02) Unknown prazosin HCl [From Minipress] Allergy (Verified 08/10/17 14:02) Unknown Medications to take at Discharge Glucosamine/MSM/Chondroitin A [Glucosamine Chondroit MSM Tab] 1 ea PO DAILY 06/11/13 Levothyroxine [Synthroid] 125 mcg PO DAILY 06/11/13 Multivitamins,Therapeutic [Multivitamin] 1 tab PO DAILY 06/11/13 Weyerhaeuser-3 Fatty Acids/Fish Oil [We[employer]haeuser 3 1,000 mg Softgel] 1,000 mg PO DAILY 06/11/13 Pantoprazole Sodium [Protonix] 40 mg PO DAILY 06/11/13 Aspirin E.C. [Ecotrin] 81 mg PO QHS 02/14/14 Magnesium Oxide [Mag-Ox 400] 400 mg PO DAILY 06/28/14 Nitroglycerin [Nitrostat] 0.4 mg SUBLINGUAL Q5M PRN 07/12/14 atorvastatin 20 mg tablet 20 mg PO QHS 90 Days #90 tab 05/10/17 benazepril 20 mg tablet 20 mg PO DAILY 05/10/17 metoprolol tartrate 50 mg tablet 50 mg PO DAILY 05/10/17 warfarin 5 mg tablet 5 mg PO DAILY 05/12/17 Amiodarone HCl [Cordarone] 200 mg PO DAILY 08/10/17 Amlodipine Besylate [Norvasc] 10 mg PO DAILY 08/10/17 Hydrochlorothiazide 25 mg PO DAILY 08/10/17 Metoprolol Tartrate [Lopressor (beta ivory)] 25 mg PO QHS 08/10/17 Cyclobenzaprine [Flexeril] 5 mg PO TID #30 tab 08/13/17 Oxycodone [Oxyir] 5 mg PO Q4H PRN PRN 5 Days #20 tab 08/13/17 Polyethylene Glycol 3350 [Miralax] 17 gm PO DAILY #30 packet 08/13/17 Senna/Docusate Sodium [Senokot-S] 1 tab PO DAILY #30 tab 08/13/17 The following prescriptions were given: Cyclobenzaprine [Flexeril] 5 mg PO TID #30 tab Oxycodone [Oxyir] 5 mg PO Q4H PRN PRN 5 Days #20 tab PRN Reason: Moderate Pain (pain scale 4-5) Polyethylene Glycol 3350 [Miralax] 17 gm PO DAILY #30 packet Senna/Docusate Sodium [Senokot-S] 1 tab PO DAILY #30 tab Primary Care Physician: Wilfrid Gregory MD [Primary Care Provider] - Please follow up with your Primary Care Physician in: in 3-5 days Please Follow Up With: Gavin Garcia MD When: in 5-7 days Proposed Discharge Date: 08/13/17
--- NOTE | 2017-08-13 08:22 | PCM.DC.SUM ---
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 Paroxysmal atrial fibrillation (Chronic) Palpitations (Chronic) Abnormal electrocardiogram (Chronic) History of coronary artery stent placement (Chronic) 06/2005 taxus stent to LAD . S/P left unicompartmental knee replacement (Chronic) Pain (Chronic) Physical debility (Chronic) Surgical wound infection (Chronic) Subclinical hyperthyroidism (Chronic) Heart palpitations (Chronic) Chest heaviness (Chronic) CAD (coronary artery disease) (Chronic) History of coronary artery stent placement (Chronic) Weakness generalized (Chronic) HLD (hyperlipidemia) (Chronic) Osteoarthritis (Chronic) PAF (paroxysmal atrial fibrillation) (Chronic) GERD (gastroesophageal reflux disease) (Chronic) HTN (hypertension) (Chronic) History of hypothyroidism (Chronic) Obesity (BMI 30.0-34.9) (Chronic) S/P PTCA (percutaneous transluminal coronary angioplasty) (Chronic) Atrial fibrillation (Chronic) Hospital Course and Treatment Imaging Results: Clinical Impression(s) from Imaging Studies Lumbar Spine X-Ray 08/10/17 15:30 IMPRESSION: Degenerative changes of the spine, as detailed above. Mild loss of height of the L1 vertebrae. Electronically Signed: Osman Donohue MD at 16:02 EDT Tel [phone], Service support , Operations: None Summary of Care Provided: Patient is an 82-year-old gentleman with multiple comorbidities presenting with acute low back pain after lifting a trailer 1. Acute low back pain suspected to be secondary to slipped disc with possible radiculopathy. Imaging studies showed Mild loss of height of the L1 vertebrae. Patient was admitted to regular nursing floor for symptomatic management with steroid, OxyIR, Flexeril for muscle relaxation with consultation placed to Dr. Garcia with pain management. Was seen by Dr. Garcia on 08/10/2017 underwent kyphoplasty on 08/12/2017. 2. Paroxysmal A. fib rate controlled on amiodarone patient is on systemic anticoagulation with Coumadin ordered INR INR on 08/12/2017 is 1.4 3. CAD with previous stent placement patient currently on recommended medications denies chest pain 4. Dyslipidemia-patient is on statin therapy, continued at home dose 5. Hypertension on blood pressure control did continue with home regimen 6. GERD: Patient is on PPI 7. Hypothyroidism-patient is on levothyroxine home dose continued 8. DVT prophylaxis patient is on Coumadin held in anticipation of possible repeat epidural steroid injection by Dr. Garcia; resumed after procedure Discharge Activity: May not drive while taking narcotic pain medications. Home Medications: Medications to take at Discharge Glucosamine/MSM/Chondroitin A [Glucosamine Chondroit MSM Tab] 1 ea PO DAILY 06/11/13 Levothyroxine [Synthroid] 125 mcg PO DAILY 06/11/13 Multivitamins,Therapeutic [Multivitamin] 1 tab PO DAILY 06/11/13 [place]ston-3 Fatty Acids/Fish Oil [[place] 3 1,000 mg Softgel] 1,000 mg PO DAILY 06/11/13 Pantoprazole Sodium [Protonix] 40 mg PO DAILY 06/11/13 Aspirin E.C. [Ecotrin] 81 mg PO QHS 02/14/14 Magnesium Oxide [Mag-Ox 400] 400 mg PO DAILY 06/28/14 Nitroglycerin [Nitrostat] 0.4 mg SUBLINGUAL Q5M PRN 07/12/14 atorvastatin 20 mg tablet 20 mg PO QHS 90 Days #90 tab 05/10/17 benazepril 20 mg tablet 20 mg PO DAILY 05/10/17 metoprolol tartrate 50 mg tablet 50 mg PO DAILY 05/10/17 warfarin 5 mg tablet 5 mg PO DAILY 05/12/17 Amiodarone HCl [Cordarone] 200 mg PO DAILY 08/10/17 Amlodipine Besylate [Norvasc] 10 mg PO DAILY 08/10/17 Hydrochlorothiazide 25 mg PO DAILY 08/10/17 Metoprolol Tartrate [Lopressor (beta ivory)] 25 mg PO QHS 08/10/17 Cyclobenzaprine [Flexeril] 5 mg PO TID #30 tab 08/13/17 Oxycodone [Oxyir] 5 mg PO Q4H PRN PRN 5 Days #20 tab 08/13/17 Polyethylene Glycol 3350 [Miralax] 17 gm PO DAILY #30 packet 08/13/17 Senna/Docusate Sodium [Senokot-S] 1 tab PO DAILY #30 tab 08/13/17 Following Prescrptions Were Given to Patient: Cyclobenzaprine [Flexeril] 5 mg PO TID #30 tab Oxycodone [Oxyir] 5 mg PO Q4H PRN PRN 5 Days #20 tab PRN Reason: Moderate Pain (pain scale 4-5) Polyethylene Glycol 3350 [Miralax] 17 gm PO DAILY #30 packet Senna/Docusate Sodium [Senokot-S] 1 tab PO DAILY #30 tab Primary Care Physician: Wilfrid Gregory MD [Primary Care Provider] - Please follow up with your Primary Care Physician in: in 3-5 days Please Follow Up With: Gavin Garcia MD When: in 5-7 days Disposition: Home Minutes spent on discharge:: 35 Patient Condition:: Stable Medical Necessity - Tobacco Use Smoking Status: Never smoker Meaningful Use Info Meaningful Use Diagnoses (Choose all that apply): None applicable Code Visit OBSV E&M: 95291 Observation care discharge
[2017-08-13 09:00] VITALS: O2SAT 88; O2SAT 92
[2017-08-13 10:23] VITALS: PULSE 60
[2017-08-13] MEDS: Magnesium Oxide 400 MG Tablet PO (10:23)
[2017-08-13] MEDS: Lisinopril 20 MG Tablet PO (10:23)
[2017-08-13] MEDS: Amiodarone 200 MG Tablet PO (10:23)
[2017-08-13] MEDS: amLODIPine 10 MG Tablet PO (10:23)
[2017-08-13] MEDS: Metoprolol Tartrate 50 MG Tablet PO (10:23)
[2017-08-13] MEDS: hydroCHLOROthiazide 25 MG Tablet PO (10:23)
--- NOTE | 2017-08-13 11:32 | CASEMGMT ---
Social Work Note Unit: MS2 Arrived to unit to see patient for follow up about discharge needs, home versus short term SNF. Upon arrival to the unit found that patient was being discharged home with . No further needs requested or indicated. -ZUNILDA Camacho, DIRECTOR DATA ANALYTICS
== END 2017-08-13 10:32 | disposition home or self-care (01) | DRG 478 ==
LOC: ED 16:37 → MS2 17:45
PROVIDERS: Anesthesiology Pain Medicine; Admitting Provider Internal Medicine; Emergency Provider Emergency Medicine; Family Provider Family Medicine; PCP Family Medicine; Visit Provider Internal Medicine
PROC: 0QS03ZZ Reposition Lumbar Vertebra, Percutaneous Approach (ICD-10-PCS; principal; 2017-08-12 07:15)
DX: M51.16 Intervertebral disc disorders with radiculopathy, lumbar region (principal); M80.08XA Age-related osteoporosis with current pathological fracture, vertebra(e), initial encounter for fracture; M89.9 Disorder of bone, unspecified; I25.10 Atherosclerotic heart disease of native coronary artery without angina pectoris; I48.2 Chronic atrial fibrillation; I48.0 Paroxysmal atrial fibrillation; K21.9 Gastro-esophageal reflux disease without esophagitis; E66.9 Obesity, unspecified; I10 Essential (primary) hypertension; E78.5 Hyperlipidemia, unspecified; E03.9 Hypothyroidism, unspecified; Z68.34 Body mass index [BMI] 34.0-34.9, adult; Z79.01 Long term (current) use of anticoagulants; E05.90 Thyrotoxicosis, unspecified without thyrotoxic crisis or storm; X50.0XXA Overexertion from strenuous movement or load, initial encounter
CPT/HCPCS: 36415; 36416; 72100; 76000; 80048; 83735; 84443; 85025; 85027; 85610; 88305; 88311; 93005; 97162; 97165; 99283; A4216; J2405; J3490

== ENCOUNTER → 2017-08-25 09:46 | Outpatient (CLI) | payer MEDICARE, OTHER, SELFPAY ==
--- NOTE | 2017-08-25 11:02 | BD_ITS ---
STUDY: DUAL ENERGY X-RAY ABSORPTIOMETRY / DXA REASON FOR EXAM: Male, 82 years old. Recent compression fracture of L1, that steroid injections TECHNIQUE: Bone Mineral Density (BMD) measurements of lumbar spine and bilateral hips were obtained. COMPARISON: None. FINDINGS: Lumbar Spine (L1-L4): g/cm2 (1.116) / T-score (-1.0) / Z-score (0.3) Findings are suggestive of osteopenia with a moderate fracture risk. These values may be factitiously elevated due to associated hypertrophic degenerative changes on the chief financial officer view. Left Femur Total: g/cm2 (0.895) / T-score (-1.4) / Z-score (-0.1) Left Femoral Neck: g/cm2 (0.851) / T-score (-1.7) / Z-score (0.0) Right Femur Total: g/cm2 (0.847) / T-score (-1.8) / Z-score (-0.5) Right Femoral Neck: g/cm2 (0.797) / T-score (-2.1) / Z-score (-0.5) BD/Dexa Bone Density Study IMPRESSION: The patient is considered osteopenic as outlined below according to World Jerman Organization (WHO) criteria with a moderate fracture risk. This study represents the patient's baseline. Reference Information: The T-score is the number of standard deviations above or below the standard which is normal for young adults at their peak bone mineral density. The World Health Organization (WHO) interprets the T-scores as follows: Above -1 Normal bone density Between -1 and -2.5 Osteopenia Equal to / or below -2.5 Osteoporosis As a practical clinical guideline, osteopenia may be graded as follows: Mild -1 through -1.5 Moderate -1.6 through -2.0 Severe -2.1 through -2.4 The Z-score is the number of standard deviations above or below age-matched controls. A Z-score of less than -1.5 would be considered abnormal. References: 1. NIH Osteoporosis and Related Bone Diseases http://www.osteo.org 2. International Society for Clinical Densitometry http://www.iscd.org 3. National Osteoporosis Foundation http://www.nof.org Electronically Signed: Alphonse Gonzalez MD at 22:12 EDT , Service support ,
--- NOTE | 2017-08-25 13:07 | PFT ---
INTRODUCTION: The patient is a 82-year-old male currently under the care of Odilia Plascencia that presents for pulmonary function testing secondary to a diagnosis of high risk medication use. Respiratory therapy reports good patient effort and reports no other concerns. Bronchodilators were used during testing. INTERPRETATION: Forced expiration spirometry demonstrates no evidence of a large airways obstructive ventilatory impairment. There was no significant response to aerosolized bronchodilators. Spirograms are of good quality and plateau normally. The respiratory flow volume loop appears normal. Body plus tomography was performed and reveals lung volumes to be within normal limits. Diffusing capacity by single breath CO is within normal limits at 88% of predicted. IMPRESSION: These pulmonary function studies are essentially within normal limits. There are no previous pulmonary function studies available for comparison.
== END ==
PROVIDERS: Family Provider Family Medicine; PCP Family Medicine; Visit Provider Physician Assistant Medical
DX: S32.010A Wedge compression fracture of first lumbar vertebra, initial encounter for closed fracture (principal); R06.00 Dyspnea, unspecified; I48.0 Paroxysmal atrial fibrillation; Z79.899 Other long term (current) drug therapy
CPT/HCPCS: 77080; 94060; 94726; 94729

== ENCOUNTER 2017-09-29 11:35 | Outpatient (RCR) | payer MEDICARE, OTHER, SELFPAY ==
[2017-09-08 12:15] LABS: Prothrombin Time Fingerstick 47.7 SEC (11.9-14.4)
[2017-09-29 11:50] LABS: Prothrombin Time Fingerstick 26.3 SEC (11.9-14.4)
== END 2017-09-29 12:00 | disposition home or self-care (01) ==
LOC: MTLAB 11:35
PROVIDERS: Family Provider Family Medicine; PCP Family Medicine; Visit Provider Internal Medicine Cardiovascular Disease
DX: I48.0 Paroxysmal atrial fibrillation (principal); Z79.899 Other long term (current) drug therapy
CPT/HCPCS: 36416; 85610

== ENCOUNTER 2017-10-22 08:28 | Emergency (ER) | payer MEDICARE, OTHER, SELFPAY ==
[2017-10-22 08:29] VITALS: BP 134/88; PULSE 76; RESP 18; TEMP 36.5; O2SAT 94; BMI 32.4
--- NOTE | 2017-10-22 08:59 | ED.DCSUM_ITS ---
- ER Visit Summary Date of Service: 10/22/17 Chief Complaint: Rectal bleeding History of Present Illness: The patient is a 82 M history of A. fib on Coumadin with a prior history of a GI bleed in which he needed transfused 7 units of blood. Patient states that yesterday he had some lower abdominal pain. Today he had loose stools with bright red rectal bleeding on 3 different occasions. He denies any vomiting or hematemesis. He denies any black stool. He denies any fever or dysuria. His only prior abdominal surgery was a cholecystectomy. Physical Examination: Well-appearing older male. Vital signs are stable afebrile. H EENT exam is unremarkable. Lungs clear to auscultation. Heart regular rate and rhythm no murmur. Rate about 75. Abdomen is soft and nondistended. Normal bowel sounds. No pulsatile mass. He does have bilateral mild lower quadrant tenderness. No rebound or guarding. No rigidity. Rectal exam shows brown loose stool. No masses nontender. No acute hemorrhoids. Test Results: With a H&H of 15 and 42. Chemistry is unremarkable with a normal BUN and creatinine and gap but does have low potassium at 2.8 he will be placed on potassium replacement. INR is elevated at 3.2 he is supratherapeutic and his Coumadin will be held. Emergency Department Course and Treatment: Patient with lower GI bleed on Coumadin. Treatment Plan: Repeat exam patient is doing well at 1020. He has had no further bleeding in the ER. His orthostatic vital signs were positive he was not dizzy. I long discussion with the patient and his and another woman sitting at bedside. I explained to him that was a conservative call but that I would recommend hospitalization due to his history of a prior significant GI bleed requiring transfusion and him being on Coumadin with a high INR. They have many family coming into town today for family get together he has a lot of scheduled events feels like he is okay and wants to go home. He and his are both competent individuals and he will return if he is feeling worse. We will hold his Coumadin for Tuesday and Tuesday and have it rechecked on Tuesday along with a repeat hemoglobin. I will contact his primary care physician office international operations manager to ensure close follow-up. He also needs a follow-up with Dr. Ryan Coronado did his prior colonoscopy for a potential repeat scope. Disposition: Leaving AGAINST MEDICAL ADVICE Impression: Acute lower GI bleed of uncertain etiology Supratherapeutic anticoagulation on Coumadin History of A. fib, CAD, prior GI bleed This note was generated with [employer] dictation software. It may contain incorrect words, spelling, and punctuation that were not noted in review of the chart prior to signing ED Disposition - Plan for ED Patient: Chief Complaint: GI Bleed Referrals: Wilfrid Gregory MD [Primary Care Provider] -
[2017-10-22 09:01] VITALS: BP 141/98; PULSE 57; RESP 12; O2SAT 95
[2017-10-22 09:06] LABS: Absolute Lymphocyte Count 1.24 X10^3/ul (0.83-4.51); Absolute Neutrophil Count 6.9 X10^3/uL (2.0-7.7); Basophil# 0.02 X10^3/uL; Basophil% 0.2 % (0-1); Eosinophil# 0.09 X10^3/uL; Hematocrit 42.6 % (40-54); Hemoglobin 15.2 g/dl (13.0-16.5); Lymphocyte # 1.24 X10^3/ul (4.0); Lymphocyte % 13.2 % (19-41); Mean Corp Hgb Conc 35.7 g/gl (32-36); Mean Corpuscular Volume 89.7 fL (80-94); Mean Platelet Vol. 9.3 fl (6.2-12.0); Monocyte# 1.08 X10^3/uL; Monocyte% 11.5 % (0-10); Neutrophil # 6.93 X10^3/uL (2.7-7.7); Neutrophil % 73.9 % (47-70); POSITIVE COUNT NO; POSITIVE DIFFERENTIAL NO; POSITIVE MORPHOLOGY NO; Platelet Count 241 K/mm3 (150-450); RBC Distribution Width CV 13.4 % (11.6-14.6); RBC Distribution Width SD 43.9 fl (35.1-43.9); Red Blood Count 4.75 M/mm3 (4.6-6.2); White Blood Count 9.4 K/mm3 (4.4-11.0)
[2017-10-22 09:09] LABS: International Normalized Ratio 3.2; Prothrombin Time (Protime)PT. 33.2 SECONDS (11.7-14.9)
[2017-10-22 09:13] LABS: Anion Gap 8 (5-15); BUN 11 mg/dL (7-18); BUN/Creat Ratio 9.6 RATIO (10-20); Calcium,Total 8.9 mg/dL (8.5-10.1); Chloride 106 mmol/L (98-107); Creatinine, Serum 1.15 mg/dL (0.70-1.30); EST Glomerular Filtration Rate 64 mL/min (>60); Est Glom Filt Rate - Afr Amer 78 mL/min (>60); Estimated Creatinine Clearance 47.09 ml/min; Glucose 105 mg/dL (74-106); Potassium 2.8 mmol/L (3.5-5.1); Sodium Level 139 mmol/L (136-145)
[2017-10-22 09:16] VITALS: BP 124/90; BP 136/94; BP 163/89; PULSE 55; PULSE 61; PULSE 65
[2017-10-22] MEDS: 0.9% Normal Saline 1,000 ML 30 ML IV (09:57)
--- NOTE | 2017-10-22 10:28 | ED.DEP ---
ED Disposition - Plan for ED Patient: Disposition: Home or Assisted Living Chief Complaint: GI Bleed Instructions: ED Hematochezia Stable Prescriptions: Potassium Chloride [K-Dur] 20 meq PO DAILY 10 Days tab Referrals: Wilfrid Gregory MD [Primary Care Provider] - As soon as possible Additional Instructions: Hold your Coumadin dose today and tomorrow. Your Coumadin level today which is called INR was equal to 3.2 and was too high. That level will need to be rechecked on Tuesday. He will also need to have a repeat blood count done on Tuesday to make sure that your bleeding has not gotten worse. Daily potassium prescription because her potassium level is low today. Return to ER if feeling worse, lightheaded or black stool or increased rectal bleeding. Follow-up with your doctor next week.
[2017-10-22 10:44] VITALS: BP 170/87; PULSE 55; RESP 13; O2SAT 94
== END 2017-10-22 10:51 | disposition left against medical advice (07) ==
PROVIDERS: Emergency Provider Emergency Medicine; Family Provider Family Medicine; PCP Family Medicine
DX: K92.2 Gastrointestinal hemorrhage, unspecified (principal); Z79.01 Long term (current) use of anticoagulants; I48.91 Unspecified atrial fibrillation; I25.10 Atherosclerotic heart disease of native coronary artery without angina pectoris
CPT/HCPCS: 80048; 85025; 85610; 86850; 86900; 99283; J7030; A4216

== ENCOUNTER 2017-10-24 13:07 | Outpatient (RCR) | payer MEDICARE, OTHER, SELFPAY ==
[2017-10-24 15:59] LABS: Hematocrit 40.7 % (40-54); Hemoglobin 13.9 g/dl (13.0-16.5)
[2017-10-24 16:01] LABS: International Normalized Ratio 2.5; Prothrombin Time (Protime)PT. 27.1 SECONDS (11.7-14.9)
== END 2017-10-24 14:00 | disposition home or self-care (01) ==
LOC: MTLAB 13:07
PROVIDERS: Family Provider Family Medicine; PCP Family Medicine; Visit Provider Internal Medicine Cardiovascular Disease
DX: I48.0 Paroxysmal atrial fibrillation (principal); Z79.899 Other long term (current) drug therapy
CPT/HCPCS: 36415; 85014; 85018; 85610

== ENCOUNTER 2017-11-07 09:30 | Outpatient (RCR) | payer MEDICARE, OTHER, SELFPAY ==
--- NOTE | 2017-10-12 14:51 | HP.PTEVAL_ITS ---
Patient's Visit Information ALVARO ZAMUDIO is a 82 year old M referred to Physical Therapy by Gavin Garcia with a diagnosis of Back pain, leg pain. Date of Evaluation: 10/12/17 Physical Therapist: Asa Crouch DPT, OC - Visit Plan Frequency: 2x /Week Duration: 4 Weeks Plan: 2x/week for 4 weeks for. 1. gentle LB ROM. 2. quad/HS/ITB/Hip flexor stretches and progress to HEP. Core strength adn progress to HEP. May use ES and ice as needed. - Subjective Subjective: Been having LBP and down both legs. Got shots from [employer] which helped but did too much at home picking up trailer and snapped LB and got sudden pain. that was about two months ago. Had to lie down and went to hospital for a few days. Needed cement back together. Had soft bones so got prescription. Been getting around with a cane lately. Has L LBP if on feet too long as he was shopping this am. Still has L leg pain occasionally daily. Back hurts off to the left and in pelvis much of time and worse if stands too long. Sitting is usually pretty comfortable. Sleeping is OK, rolling can hurt. Could not walk forever before this happened. Worse since this happened, - Pain LBP Pain Intensity (Out of 10): 0 Pain Intensity Range: 0, 4 - Objective Walks Mod I with cane and can walk without cane. L leg slightly shorter vs R 1/ 4 inch. rotates L pelvis posterior at end of L stance slightly. Not painful ambulating today. Transfers are I, bed transfers slightly painful. L/S AROM ext mod limited and mild discomfort improving with repetition. Flexion mod limited, SB L painful and R not painful. LE strength 5/5, flex poor in HS and quad and ITB and hip flexors. reflexes 0/3 B patella and achilles. Sensation LE WNL to gross light touch. Balance appears good statically and dynamically. - Goals Goal 1:: Pain in LB only and 1/10 at worst. Goal Time Frame: 2-4 Weeks Goal 2:: I approp HEP to minimize future problems Goal Time Frame: 2-4 Weeks Goal 3:: Patient feel 75% back to normal and shop at store without increased pain. Goal Time Frame: 2-4 Weeks - Rehabilitation Potential Physical Therapy Diagnosis: Degenerative back pain. Rehabilitation Potential: Fair - Anticipated Interventions Patient/Client Instruction: Educate patient on: Condition, Plan of Care For the Purpose of:: To decrease pain, To increase ROM, To increase tolerance to activity/condition/position, To improve ability of physical actions for home/ community/work/leisure Therapeutic Exercise to Include: Strength training, Postural training, Flexibilty training, Passive ROM, Active ROM, Dynamic Lumbar Stabilization For the Purpose of:: To decrease pain, To improve nutrient delivery to tissue, To improve ability of physical actions for home/community/work/leisure, To improve gait and locomotor functions TENS: Yes Cryotherapy (ice pack, ice massage): Yes For the Purpose of:: To decrease pain Thank you for the opportunity to evaluate your patient. For Medicare and Medicare HMO plans, please review the plan of care and approve it. It will need to be FAXED BACK to us at [phone] for Medicare purposes. Please let me know if there are questions or concerns regarding this plan of care. Physician Signature: Date:
--- NOTE | 2017-11-07 10:15 | HP.PTDCSUM ---
HP - PT D/C Summary It has been my pleasure to treat ALVARO ZAMUDIO under orders from Gavin Garcia, for the diagnosis of Back pain, leg pain for a total of 8 visit(s). Discharge Date: 11/07/17 Please see the following information for a summary of their discharge status. - Subjective Subjective: Pretty good. Little more flexible and little less pain. Pain over weekend 3/10 in LB with walking to barn 250 feet. Sleep is OK. Not nearly as much pain down legs when I twist. Sees Jose next week. May get injections. Doing ex at home not as much as I should. Doing stretches at home on bard adn flexion in LB. Also rotating side to side in supine. - Pain LBP Pain Intensity (Out of 10): 0 - Overall Improvement % Improvement: 50 - Objective Objective/Function: L/S AROM is mod limited in ext with pain centrally, flexiona dn SB are slow and min limted without pain. Gait is slow but I. HS adn quads and hip flexors still very tight. OVERALL SOME BETTER. fUNCTIONALLY IMPROVING FROM FRACTURE. - Goals Goal 1:: Pain in LB only and 1/10 at worst. Goal Progress: Progressing Goal 2:: I approp HEP to minimize future problems Goal Progress: Goal Met Goal 3:: Patient feel 75% back to normal and shop at store without increased pain. Goal Progress: Progressing - Plan Plan: D/C , Pt wants to see doctor next week and see otpions. Will continue HEP. Water therapy should be considered if pain returns. - D/C Information Discharge Comments: See Objective. Doing better. Wants to see doctor vs continue PT. Water therapy should be considered if pain returns. He also plans on using Silver Sneakers to continue his workout I. If there are questions or concerns regarding this patient's physical therapy, please feel free to call me at [phone]. Thank you for the referral of this patient. Sincerely, Asa Crouch, DPT, OC
== END 2017-11-07 19:00 | disposition home or self-care (01) ==
LOC: PT 09:30
PROVIDERS: Family Provider Family Medicine; PCP Family Medicine; Visit Provider Anesthesiology Pain Medicine
DX: M54.9 Dorsalgia, unspecified (principal); M79.606 Pain in leg, unspecified
CPT/HCPCS: 36415; 84132; 85610; 97110; 97162; 97530

== ENCOUNTER 2017-11-15 11:15 | Outpatient (RCR) | payer MEDICARE, OTHER, SELFPAY ==
[2017-11-01 12:33] LABS: International Normalized Ratio 2.7; Prothrombin Time (Protime)PT. 28.9 SECONDS (11.7-14.9)
[2017-11-15 11:26] LABS: Prothrombin Time Fingerstick 28.2 SEC (11.9-14.4)
== END 2017-11-15 13:00 ==
LOC: MTLAB 11:15
PROVIDERS: Family Provider Family Medicine; PCP Family Medicine; Visit Provider Internal Medicine Cardiovascular Disease
DX: I48.0 Paroxysmal atrial fibrillation (principal); Z79.899 Other long term (current) drug therapy
CPT/HCPCS: 36415; 36416; 84132; 85610

== ENCOUNTER 2018-01-19 11:42 | Outpatient (RCR) | payer MEDICARE, OTHER, SELFPAY ==
[2018-01-04 11:41] LABS: Prothrombin Time Fingerstick 34.9 SEC (11.9-14.4)
[2018-01-19 12:01] LABS: Prothrombin Time Fingerstick 28.5 SEC (11.9-14.4)
== END 2018-01-19 13:00 | disposition home or self-care (01) ==
LOC: LAB 11:42
PROVIDERS: Family Provider Family Medicine; PCP Family Medicine; Visit Provider Internal Medicine Cardiovascular Disease
DX: I48.0 Paroxysmal atrial fibrillation (principal); Z79.01 Long term (current) use of anticoagulants
CPT/HCPCS: 36416; 85610

== ENCOUNTER 2018-03-21 10:56 | Outpatient (RCR) | payer MEDICARE, OTHER, SELFPAY ==
[2018-03-06 12:00] LABS: Prothrombin Time Fingerstick 35.9 SEC (11.9-14.4)
== END 2018-03-31 09:21 | disposition home or self-care (01) ==
LOC: LAB 10:56
PROVIDERS: Family Provider Family Medicine; PCP Family Medicine; Referring Provider Internal Medicine Cardiovascular Disease; Visit Provider Internal Medicine Cardiovascular Disease
DX: I48.0 Paroxysmal atrial fibrillation (principal); Z79.01 Long term (current) use of anticoagulants
CPT/HCPCS: 36416; 85610

== ENCOUNTER 2018-04-28 12:43 | Outpatient (RCR) | payer MEDICARE, OTHER, SELFPAY ==
[2017-11-17 13:19] VITALS: BMI 33.0
[2018-04-28 14:05] LABS: Absolute Lymphocyte Count 1.63 X10^3/ul (0.83-4.51); Absolute Neutrophil Count 3.7 X10^3/uL (2.0-7.7); Basophil# 0.03 X10^3/uL; Basophil% 0.5 % (0-1); Eosinophil# 0.35 X10^3/uL; Eosinophils% 5.5 % (0-5); Hematocrit 43.3 % (40-54); Lymphocyte # 1.63 X10^3/ul (4.0); Lymphocyte % 25.8 % (19-41); Mean Corp Hgb Conc 34.6 g/gl (32-36); Mean Corpuscular Hgb 31.7 pg (27.0-32.0); Mean Corpuscular Volume 91.5 fL (80-94); Mean Platelet Vol. 9.6 fl (6.2-12.0); Monocyte# 0.61 X10^3/uL; Monocyte% 9.7 % (0-10); Neutrophil # 3.68 X10^3/uL (2.7-7.7); Neutrophil % 58.3 % (47-70); Platelet Count 239 K/mm3 (150-450); RBC Distribution Width CV 13.5 % (11.6-14.6); RBC Distribution Width SD 45.1 fl (35.1-43.9); Red Blood Count 4.73 M/mm3 (4.6-6.2); White Blood Count 6.3 K/mm3 (4.4-11.0)
[2018-04-28 14:06] LABS: International Normalized Ratio 2.7; Prothrombin Time (Protime)PT. 29.1 SECONDS (11.7-14.9)
[2018-04-28 14:09] LABS: POSITIVE COUNT NO; POSITIVE DIFFERENTIAL NO; POSITIVE MORPHOLOGY NO
[2018-04-28 14:25] LABS: AST(SGOT) 34 U/L (15-37); Alanine Aminotransfer ALT/SGPT 38 U/L (16-61); Albumin, Serum 3.9 g/dL (3.2-5.0); Alkaline Phosphatase 85 U/L (45-117); Anion Gap 9 (5-15); BUN 19 mg/dL (7-18); BUN/Creat Ratio 15.2 RATIO (10-20); Bilirubin, Direct 0.29 mg/dL (0.00-0.30); Chloride 105 mmol/L (98-107); Cholesterol 206 mg/dL (200); Creatinine, Serum 1.25 mg/dL (0.70-1.30); EST Glomerular Filtration Rate 59 mL/min (>60); Est Glom Filt Rate - Afr Amer 71 mL/min (>60); Globulin 3.9 g/dL (2.2-4.2); Glucose 115 mg/dL (74-106); High Density Lipoprotein 55 mg/dL; Potassium 3.1 mmol/L (3.5-5.1); Protein, Total 7.8 g/dL (6.4-8.2); Sodium Level 138 mmol/L (136-145); Triglycerides 234 mg/dL; Very Low Density Lipoprotein 47 mg/dL (5-40)
== END 2018-04-28 13:00 | disposition home or self-care (01) ==
LOC: LAB 12:43
PROVIDERS: Family Provider Family Medicine; PCP Family Medicine; Referring Provider Internal Medicine Cardiovascular Disease; Visit Provider Internal Medicine Cardiovascular Disease
DX: I48.0 Paroxysmal atrial fibrillation (principal); Z79.01 Long term (current) use of anticoagulants; E78.00 Pure hypercholesterolemia, unspecified
CPT/HCPCS: 36415; 80048; 80061; 80076; 85025; 85610

== ENCOUNTER → 2018-06-06 11:48 | Outpatient (CLI) | payer MEDICARE, OTHER, SELFPAY ==
[2018-06-06 10:34] VITALS: BMI 33.9
[2018-06-06 12:37] LABS: International Normalized Ratio 2.8; Prothrombin Time (Protime)PT. 29.3 SECONDS (11.7-14.9)
[2018-06-06 12:58] LABS: T4 Free Direct 1.63 ng/dL (0.76-1.46); Thyroid Stim Hormone (TSH) 0.97 uIU/mL (0.358-3.74)
== END ==
PROVIDERS: Family Provider Family Medicine; PCP Family Medicine; Referring Provider Physician Assistant Medical; Visit Provider Physician Assistant Medical
DX: I48.0 Paroxysmal atrial fibrillation (principal); Z79.01 Long term (current) use of anticoagulants
CPT/HCPCS: 36415; 84439; 84443; 85610

== ENCOUNTER → 2018-06-15 14:08 | Outpatient (CLI) | payer MEDICARE, OTHER, SELFPAY ==
[2018-06-13 11:13] VITALS: BMI 34.0
--- NOTE | 2018-06-15 14:12 | RAD_ITS ---
STUDY: X-RAY - THORACIC SPINE REASON FOR EXAM: Male, 83 years old. Old L1 fracture TECHNIQUE: 3 view(s) of the thoracic spine were obtained. COMPARISON: None. FINDINGS: Normal kyphosis of the thoracic spine. There is no substantial scoliosis. There is multilevel endplate spondylosis of the thoracic vertebrae. There is multilevel disc space narrowing of the thoracic spine. Vertebral augmentation L1. The soft tissue structures are unremarkable. IMPRESSION: Vertebral augmentation L1. No acute thoracic spine fracture. Moderate spondylosis. Electronically Signed: En Cisneros MD at 23:11 EST , Service support , RAD/Thoracic Spine 3 Views
--- NOTE | 2018-06-15 14:12 | RAD_ITS ---
STUDY: X-RAY - LUMBAR SPINE REASON FOR EXAM: Male, 83 years old. Remote TECHNIQUE: 3 view(s) of the lumbar spine were obtained. COMPARISON: None FINDINGS: New augmentation L1. New 20% compression fracture superior endplate L2. Normal lumbar lordosis. There is no substantial scoliosis. There is a normal alignment of the vertebrae. Normal vertebral bodies and endplates. Normal disc space heights. The soft tissue structures are unremarkable. RAD/Lumbar Spine 2 or 3 Views IMPRESSION: New augmentation L1. Mild compression fracture L2. Electronically Signed: En Cisneros MD at 23:09 EST , Service support ,
== END ==
PROVIDERS: Family Provider Family Medicine; PCP Family Medicine; Referring Provider Anesthesiology Pain Medicine; Visit Provider Anesthesiology Pain Medicine
DX: M54.9 Dorsalgia, unspecified (principal)
CPT/HCPCS: 72072; 72100

== ENCOUNTER → 2018-06-19 12:46 | Outpatient (CLI) | payer MEDICARE, OTHER, SELFPAY ==
[2018-06-13 11:13] VITALS: BMI 34.0
== END ==
PROVIDERS: Family Provider Family Medicine; PCP Family Medicine; Referring Provider Physician Assistant Medical; Visit Provider Physician Assistant Medical
DX: I48.0 Paroxysmal atrial fibrillation (principal); R00.1 Bradycardia, unspecified
CPT/HCPCS: 93225; 93226

== ENCOUNTER → 2018-06-29 10:43 | Outpatient (CLI) | payer MEDICARE, OTHER, SELFPAY ==
[2018-06-29 09:33] VITALS: BMI 34.2
--- NOTE | 2018-06-29 10:59 | RAD_ITS ---
STUDY: X-RAY CHEST REASON FOR EXAM: Male, 83 years old. Shortness of breath TECHNIQUE: PA and lateral chest COMPARISON: 06/28/2014 FINDINGS: There is generalized pulmonary hyperlucency with diffuse mild coarsening of interstitium and hemidiaphragm flattening with increased AP diameter of the chest consistent with underlying COPD/emphysema. Correlate smoking history. There is prominence of the central pulmonary arteries. Mild ectasia of the aortic arch. Mild cardiomegaly. No acute osseous or upper abdominal process. Upper lumbar kyphoplasty. RAD/Chest PA and Lateral IMPRESSION: No acute cardiopulmonary process is evident. There are features of COPD/emphysema with prominence of the central pulmonary arteries and cardiac prominence suggesting increased right heart pressures, possibly a component of pulmonary arterial hypertension in the setting of chronic lung disease. Electronically Signed: Enrique Reyna MD at 18:05 EST Tel , Service support ,
[2018-06-29 12:46] LABS: Absolute Lymphocyte Count 1.82 X10^3/ul (0.83-4.51); Absolute Neutrophil Count 5.9 X10^3/uL (2.0-7.7); Basophil# 0.02 X10^3/uL; Basophil% 0.2 % (0-1); Eosinophils% 1.2 % (0-5); Hematocrit 44.5 % (40-54); Lymphocyte # 1.82 X10^3/ul (4.0); Mean Corp Hgb Conc 33.7 g/gl (32-36); Mean Corpuscular Hgb 31.3 pg (27.0-32.0); Mean Corpuscular Volume 92.7 fL (80-94); Monocyte# 0.87 X10^3/uL; Neutrophil # 5.85 X10^3/uL (2.7-7.7); Neutrophil % 67.4 % (47-70); Platelet Count 239 K/mm3 (150-450); RBC Distribution Width CV 13.7 % (11.6-14.6); RBC Distribution Width SD 45.3 fl (35.1-43.9); White Blood Count 8.7 K/mm3 (4.4-11.0)
[2018-06-29 12:49] LABS: POSITIVE COUNT NO; POSITIVE DIFFERENTIAL NO; POSITIVE MORPHOLOGY NO
[2018-06-29 12:53] LABS: International Normalized Ratio 2.9; Prothrombin Time (Protime)PT. 30.4 SECONDS (11.7-14.9)
[2018-06-29 12:54] LABS: Partial Thromboplast Time 38.4 Seconds (24.1-36.2)
[2018-06-29 13:05] LABS: Anion Gap 12 (5-15); BUN 22 mg/dL (7-18); BUN/Creat Ratio 17.5 RATIO (10-20); Calcium,Total 9.6 mg/dL (8.5-10.1); Chloride 107 mmol/L (98-107); Creatinine, Serum 1.26 mg/dL (0.70-1.30); EST Glomerular Filtration Rate 58 mL/min (>60); Est Glom Filt Rate - Afr Amer 70 mL/min (>60); Glucose 85 mg/dL (74-106); Sodium Level 142 mmol/L (136-145)
== END ==
LOC: POLAB3 10:44 → RAD 10:58
PROVIDERS: Family Provider Family Medicine; PCP Family Medicine; Referring Provider Physician Assistant Medical; Visit Provider Physician Assistant Medical
DX: I25.10 Atherosclerotic heart disease of native coronary artery without angina pectoris (principal); I48.0 Paroxysmal atrial fibrillation; R53.83 Other fatigue; Z79.01 Long term (current) use of anticoagulants
CPT/HCPCS: 36415; 71046; 80048; 85025; 85610; 85730

== ENCOUNTER 2018-07-03 07:35 | Day surgery (SDC) | payer MEDICARE, OTHER, SELFPAY ==
[2018-06-29 09:33] VITALS: BMI 34.2
[2018-06-30 09:39] VITALS: BMI 34.2
[2018-07-03 07:51] LABS: Prothrombin Time Fingerstick 15.6 SEC (11.9-14.4)
--- NOTE | 2018-07-03 11:13 | CL.D_ITS ---
Patient Name: ALVARO ZAMUDIO Study Date: 07/03/2018 Performing: Orville Espinal MD Ht: 68.11 inches 173 cm : 1935 Wt: 224.87 lbs 102 kg Age: 83 Gender: male BSA: 2.15 PROCEDURE(S) PERFORMED AN10-OEW/COR/LV CLINICAL PROFILE AND INDICATIONS Indications: Suspected CAD Heart Failure: None Stress/Imaging Stress/Image Study Performed: No CAD Presentations: Symptom unlikely to be ischemic. CONCLUSIONS Non obstructive coronary arteries LAD appears to have remodeled with mild to moderate irregularities RECOMMENDATIONS Medical therapy DESCRIPTION OF PROCEDURE The patient arrived to the procedure lab. The risks and benefits of the procedure as well as a full d escription of our services here and current unavailability of surgical backup were fully explained to the patient and/or their significant other prior to the catheterization. The Timeout was completed, verifying the correct patient and procedure. The patient's procedural site was prepped and draped in the usual fashion. Local anesthetic was given subcutaneously to right groin region with Nesacaine 2%. Using a modified Seldinger technique, arterial access was obtained via the right femoral artery, a 5 Fr sheath was inserted. Left Coronary Artery selective angiography was performed in multiple views u sing a 5 Fr. JL4 catheter. Left Coronary Artery selective angiography was performed in multiple views using a 5 Fr. JL 5 catheter. Right Coronary Artery selective angiography was then performed in multi ple views using a 5 Fr. 3DRC (Lucien) catheter. Left Ventriculography was performed in MALHOTRA projection using a 5 Fr. Pigtail catheter. LV to AO pullback pressures were then recorded.Contras t was injected through the sheath and the Right Iliac and Femoral artery were assessed for possible c losure device.The arterial sheath was pulled and a Mynx closure device was deployed for hemostasis CORONARY ANGIOGRAPHY DOMINANCE: Right Dominant LEFT HEART ASSESSMENT Left Ventricular Ejection Fraction: by LV Gram 60 % Normal Left Ventricular systolic function LEFT MAIN: Angiographically normal LEFT ANTERIOR DECENDING ARTERY: Moderate luminal irregularities up to 50%, Diffusely diseased up to 5 0 % CIRCUMFLEX ARTERY: Mild luminal irregularities RAMUS: Mild luminal irregularities RIGHT CORONARY ARTERY: Mild luminal irregularities COMPLICATIONS No Complications PROCEDURE MEDICATIONS Versed 1 mg IV Fentanyl 50 mcg IV Oxygen: 2 L/min via nasal cannula SUMMARY OF HEMODYNAMIC DATA Time AIR REST ECG 08:11:22 AO 174/73 (110) SA 10:35:37 LV 164/4, 16 10:52:41 LV 170/9, 17 10:52:47 LV 165/8, 24 10:53:48 LVp 168/7, 18 10:53:52 AOp 157/66 (97) 10:53:57 Signed By Orville Espinal MD On 07/03/2018 11:12:50 Orville Espinal MD
== END 2018-07-03 14:10 | disposition home or self-care (01) ==
PROVIDERS: Family Provider Family Medicine; PCP Family Medicine; Referring Provider Internal Medicine Cardiovascular Disease; Visit Provider Internal Medicine Cardiovascular Disease
DX: I25.10 Atherosclerotic heart disease of native coronary artery without angina pectoris (principal); I48.0 Paroxysmal atrial fibrillation; E78.00 Pure hypercholesterolemia, unspecified; I10 Essential (primary) hypertension; R00.1 Bradycardia, unspecified; E78.5 Hyperlipidemia, unspecified; E03.2 Hypothyroidism due to medicaments and other exogenous substances; Z79.01 Long term (current) use of anticoagulants
CPT/HCPCS: 36416; 85610; 93458; 99152; 99153; C1760; J7040; Q9967

== ENCOUNTER 2018-08-22 10:23 | Outpatient (RCR) | payer MEDICARE, OTHER, SELFPAY ==
[2017-11-17 13:19] VITALS: BMI 33.0
[2018-06-30 09:39] VITALS: BMI 34.2
[2018-08-07 11:15] LABS: Prothrombin Time Fingerstick 41.6 SEC (11.9-14.4)
[2018-08-07 12:41] LABS: Prothrombin Time (Protime)PT. 36.4 SECONDS (11.7-14.9)
[2018-08-07 12:58] LABS: International Normalized Ratio 3.6
[2018-08-22 10:55] LABS: Prothrombin Time Fingerstick 27.9 SEC (11.9-14.4)
== END 2018-08-29 16:00 | disposition home or self-care (01) ==
LOC: LAB 10:23
PROVIDERS: Family Provider Family Medicine; PCP Family Medicine; Referring Provider Internal Medicine Cardiovascular Disease; Visit Provider Internal Medicine Cardiovascular Disease
DX: I48.0 Paroxysmal atrial fibrillation (principal); Z79.01 Long term (current) use of anticoagulants
CPT/HCPCS: 36415; 36416; 85610

== ENCOUNTER 2018-09-21 10:55 | Outpatient (RCR) | payer MEDICARE, OTHER, SELFPAY ==
[2018-08-30 11:24] VITALS: BMI 34.2
[2018-09-21 11:15] LABS: Prothrombin Time Fingerstick 26.1 SEC (11.9-14.4)
== END 2018-09-21 11:55 | disposition home or self-care (01) ==
LOC: LAB 10:55
PROVIDERS: Family Provider Family Medicine; PCP Family Medicine; Referring Provider Internal Medicine Cardiovascular Disease; Visit Provider Internal Medicine Cardiovascular Disease
DX: I48.0 Paroxysmal atrial fibrillation (principal); Z79.01 Long term (current) use of anticoagulants
CPT/HCPCS: 36416; 85610

== ENCOUNTER → 2018-10-10 13:34 | Outpatient (CLI) | payer MEDICARE, OTHER, SELFPAY ==
[2018-09-30 07:34] VITALS: BMI 33.4
--- NOTE | 2018-10-10 13:39 | RAD_ITS ---
STUDY: X-RAY - LEFT FOOT CLINICAL: Male, 83 years old. Medial ankle pain. TECHNIQUE: 3 view(s) of the foot. COMPARISON: None. FINDINGS: There is an enthesophyte involving the posterior superior calcaneus at the site of insertion of the Achilles tendon. Small plantar spur. Normal visualized subtalar, talonavicular, calcaneocuboid, tarsal and tarsometatarsal articulations. Normal metatarsi. Normal metatarsophalangeal joint of the great toe. Normal tibial and fibular sesamoid bones. Normal interphalangeal joint of the great toe. Normal phalanges of the great toe. Normal second through fifth metatarsophalangeal joints. Normal interphalangeal joints and phalanges of the lesser toes. Vascular calcification. RAD/Foot min 3 Views IMPRESSION: Calcaneal spurs. Electronically Signed: Osman Donohue, at 14:16 EDT , Service support ,
--- NOTE | 2018-10-10 13:39 | RAD_ITS ---
STUDY: X-RAY - LEFT ANKLE REASON FOR EXAM: Male, 83 years old. Nonspecific pain. TECHNIQUE: 3 view(s) of the ankle. COMPARISON: None. FINDINGS: Normal visualized distal tibia and fibula. Normal medial and lateral malleoli. Normal tibiotalar articulation and ankle mortise. Calcaneal spurs. The visualized subtalar, talonavicular, calcaneocuboid and tarsal articulations are normal. Soft tissue swelling. RAD/Ankle min 3 Views IMPRESSION: Calcaneal spurs. Soft tissue swelling. Electronically Signed: Osman Donohue, at 14:17 EDT , Service support ,
== END ==
PROVIDERS: Family Provider Family Medicine; PCP Family Medicine; Referring Provider Nurse Practitioner Adult Health; Visit Provider Nurse Practitioner Adult Health
DX: S99.912A Unspecified injury of left ankle, initial encounter (principal); S99.922A Unspecified injury of left foot, initial encounter
CPT/HCPCS: 73610; 73630

== ENCOUNTER 2018-11-27 11:36 | Outpatient (RCR) | payer MEDICARE, OTHER, SELFPAY ==
[2018-09-30 07:34] VITALS: BMI 33.4
[2018-11-09 09:56] LABS: Prothrombin Time Fingerstick 38.4 SEC (11.9-14.4)
[2018-11-27 12:26] LABS: Prothrombin Time Fingerstick 37.3 SEC (11.9-14.4)
== END 2018-11-29 17:30 | disposition home or self-care (01) ==
LOC: LAB 11:36
PROVIDERS: Family Provider Family Medicine; PCP Family Medicine; Referring Provider Internal Medicine Cardiovascular Disease; Visit Provider Internal Medicine Cardiovascular Disease
DX: I48.0 Paroxysmal atrial fibrillation (principal); Z79.01 Long term (current) use of anticoagulants
CPT/HCPCS: 36416; 85610

== ENCOUNTER 2018-12-05 11:14 | Outpatient (RCR) | payer MEDICARE, OTHER, SELFPAY ==
[2018-09-30 07:34] VITALS: BMI 33.4
== END 2018-12-05 12:00 | disposition home or self-care (01) ==
LOC: LAB 11:14
PROVIDERS: Family Provider Family Medicine; PCP Family Medicine; Referring Provider Internal Medicine Cardiovascular Disease; Visit Provider Internal Medicine Cardiovascular Disease
DX: I48.0 Paroxysmal atrial fibrillation (principal); Z79.01 Long term (current) use of anticoagulants
CPT/HCPCS: 36416; 85610

== ENCOUNTER 2019-01-03 13:32 | Outpatient (RCR) | payer MEDICARE, OTHER, SELFPAY ==
[2018-09-30 07:34] VITALS: BMI 33.4
[2019-01-03 13:43] LABS: Prothrombin Time Fingerstick 31.8 SEC (11.9-14.4)
== END 2019-01-03 15:00 | disposition home or self-care (01) ==
LOC: LAB 13:32
PROVIDERS: Family Provider Family Medicine; PCP Family Medicine; Referring Provider Internal Medicine Cardiovascular Disease; Visit Provider Internal Medicine Cardiovascular Disease
DX: I48.0 Paroxysmal atrial fibrillation (principal); Z79.01 Long term (current) use of anticoagulants
CPT/HCPCS: 36416; 85610

== ENCOUNTER → 2019-02-27 06:46 | Outpatient (CLI) | payer MEDICARE, OTHER, SELFPAY ==
[2019-02-12 09:27] VITALS: BMI 33.6
--- NOTE | 2019-02-27 15:16 | PFTCOMP_ITS ---
COMPLETE PULMONARY FUNCTION TEST INTERPRETATION Brief HPI: Patient is an 83 year old male, currently under the care of Dr. Espinal, who presents to [facility] for complete pulmonary function tests secondary to diagnosis of high risk meds. Respiratory therapist reports good effort and reproducible results. Interpretation: Forced expiration spirometry shows no large airways obstructive ventilatory defect with an FEV1 of 114% predicted. There is no significant bronchodilator re sponse by strict ATS criteria. Spirograms are of good quality and plateau normally. The respiratory flow volume loop shows a normal pattern. Lung volumes by body plethysmography show a normal total lung capacity at 5.25 L, 94% predicted. All other lung volumes are within normal limits. Diffusion capacity by carbon monoxide is normal at 97% predicted. The airway resistance is normal. Compared to previous pulmonary function tests from 08/25/2017, there has been no significant change. Impression: These pulmonary function tests are within normal limits.
== END ==
PROVIDERS: Family Provider Family Medicine; PCP Family Medicine; Referring Provider Physician Assistant Medical; Visit Provider Physician Assistant Medical
DX: I25.10 Atherosclerotic heart disease of native coronary artery without angina pectoris (principal); I48.0 Paroxysmal atrial fibrillation; E78.5 Hyperlipidemia, unspecified; I10 Essential (primary) hypertension
CPT/HCPCS: 94060; 94726; 94729

== ENCOUNTER 2019-03-13 10:20 | Outpatient (RCR) | payer MEDICARE, OTHER, SELFPAY ==
[2018-09-30 07:34] VITALS: BMI 33.4
[2019-02-12 09:27] VITALS: BMI 33.6
[2019-03-05 15:40] LABS: Prothrombin Time Fingerstick 40.4 SEC (11.9-14.4)
[2019-03-05 17:56] LABS: Prothrombin Time (Protime)PT. 36.3 SECONDS (11.7-14.9)
[2019-03-05 18:07] LABS: International Normalized Ratio 3.6
[2019-03-13 12:27] LABS: International Normalized Ratio 2.6; Prothrombin Time (Protime)PT. 27.5 SECONDS (11.7-14.9)
== END 2019-03-13 18:00 | disposition home or self-care (01) ==
LOC: LAB 10:20
PROVIDERS: Family Provider Family Medicine; PCP Family Medicine; Referring Provider Internal Medicine Cardiovascular Disease; Visit Provider Internal Medicine Cardiovascular Disease
DX: I48.0 Paroxysmal atrial fibrillation (principal); Z79.01 Long term (current) use of anticoagulants
CPT/HCPCS: 36415; 36416; 85610

== ENCOUNTER 2019-04-17 10:20 | Outpatient (RCR) | payer MEDICARE, OTHER, SELFPAY ==
[2019-02-12 09:27] VITALS: BMI 33.6
[2019-04-17 12:30] LABS: Absolute Lymphocyte Count 1.44 X10^3/uL (0.83-4.51); Absolute Neutrophil Count 4.2 X10^3/uL (2.0-7.7); Basophil# 0.04 X10^3/uL; Basophil% 0.6 % (0-1); Eosinophil# 0.41 X10^3/uL; Eosinophils% 6.1 % (0-5); Hematocrit 44.3 % (40-54); Hemoglobin 15.2 g/dL (13.0-16.5); Lymphocyte # 1.44 X10^3/ul (4.0); Lymphocyte % 21.5 % (19-41); Mean Corp Hgb Conc 34.3 g/dL (32-36); Mean Corpuscular Hgb 31.4 pg (27.0-32.0); Mean Corpuscular Volume 91.5 fL (80-94); Mean Platelet Vol. 9.6 fl (6.2-12.0); Monocyte# 0.59 X10^3/uL; Monocyte% 8.8 % (0-10); NRBC Flagged by Analyzer 0 % (0-5); Neutrophil # 4.22 X10^3/uL (2.7-7.7); Neutrophil % 62.9 % (47-70); Platelet Count 269 K/mm3 (150-450); RBC Distribution Width CV 13.4 % (11.6-14.6); RBC Distribution Width SD 45.1 fl (35.1-43.9); Red Blood Count 4.84 M/mm3 (4.6-6.2); White Blood Count 6.7 K/mm3 (4.4-11.0)
[2019-04-17 12:38] LABS: International Normalized Ratio 2.2; Prothrombin Time (Protime)PT. 24.3 SECONDS (11.7-14.9)
[2019-04-17 12:42] LABS: Vitamin D,25 Hydroxy 20.7 ng/mL (29.95-100.01)
[2019-04-17 12:51] LABS: ALB/GLOB Ratio 0.8 RATIO (0.9-2.4); AST(SGOT) 31 U/L (15-37); Alanine Aminotransfer ALT/SGPT 36 U/L (16-61); Alkaline Phosphatase 76 U/L (45-117); Anion Gap 6 (5-15); BUN 22 mg/dL (7-18); BUN/Creat Ratio 16.7 RATIO (10-20); Calcium,Total 9.8 mg/dL (8.5-10.1); Chloride 105 mmol/L (98-107); Cholesterol 247 mg/dL (200); Creatinine, Serum 1.32 mg/dL (0.70-1.30); EST Glomerular Filtration Rate 55 mL/min (>60); Est Glom Filt Rate - Afr Amer 66 mL/min (>60); Globulin 4.8 g/dL (2.2-4.2); Glucose 96 mg/dL (74-106); High Density Lipoprotein 55 mg/dL; Potassium 3.8 mmol/L (3.5-5.1); Protein, Total 8.8 g/dL (6.4-8.2); Sodium Level 136 mmol/L (136-145); T4 Free Direct 1.34 ng/dL (0.76-1.46); Thyroid Stim Hormone (TSH) 2.54 uIU/mL (0.358-3.74); Triglycerides 171 mg/dL; Very Low Density Lipoprotein 34 mg/dL (5-40)
== END 2019-04-17 18:00 | disposition home or self-care (01) ==
LOC: LAB 10:20
PROVIDERS: Family Provider Family Medicine; PCP Family Medicine; Referring Provider Internal Medicine Cardiovascular Disease; Visit Provider Internal Medicine Cardiovascular Disease
DX: I25.10 Atherosclerotic heart disease of native coronary artery without angina pectoris (principal); I10 Essential (primary) hypertension; E78.5 Hyperlipidemia, unspecified; E03.9 Hypothyroidism, unspecified; M81.0 Age-related osteoporosis without current pathological fracture; I48.0 Paroxysmal atrial fibrillation; Z79.01 Long term (current) use of anticoagulants
CPT/HCPCS: 36415; 80053; 80061; 82306; 84439; 84443; 85025; 85610

== ENCOUNTER 2019-05-15 10:55 | Outpatient (RCR) | payer MEDICARE, OTHER, SELFPAY ==
[2019-02-12 09:27] VITALS: BMI 33.6
[2019-05-16 07:45] LABS: Prothrombin Time Fingerstick 25.7 SEC (11.9-14.4)
== END 2019-05-15 18:00 | disposition home or self-care (01) ==
LOC: LAB 10:55
PROVIDERS: Family Provider Family Medicine; PCP Family Medicine; Referring Provider Internal Medicine Cardiovascular Disease; Visit Provider Internal Medicine Cardiovascular Disease
DX: I48.0 Paroxysmal atrial fibrillation (principal); Z79.01 Long term (current) use of anticoagulants
CPT/HCPCS: 36416; 85610

== ENCOUNTER 2019-09-28 08:17 | Outpatient (RCR) | payer MEDICARE, OTHER, SELFPAY ==
[2019-02-12 09:27] VITALS: BMI 33.6
[2019-09-12 13:36] LABS: Prothrombin Time Fingerstick 21.9 SEC (11.9-14.4)
[2019-09-28 11:36] LABS: Prothrombin Time Fingerstick 25.5 SEC (11.9-14.4)
== END 2019-09-28 18:00 | disposition home or self-care (01) ==
LOC: MTLAB 08:17
PROVIDERS: Family Provider Family Medicine; PCP Family Medicine; Referring Provider Internal Medicine Cardiovascular Disease; Visit Provider Internal Medicine Cardiovascular Disease
DX: I48.0 Paroxysmal atrial fibrillation (principal); Z79.01 Long term (current) use of anticoagulants
CPT/HCPCS: 36416; 85610

== ENCOUNTER 2019-10-26 13:35 | Outpatient (RCR) | payer MEDICARE, OTHER, SELFPAY ==
[2019-02-12 09:27] VITALS: BMI 33.6
[2019-10-26 15:27] LABS: International Normalized Ratio 2.1; Prothrombin Time (Protime)PT. 22.8 SECONDS (11.7-14.9)
== END 2019-10-26 18:00 | disposition home or self-care (01) ==
LOC: MTLAB 13:35
PROVIDERS: Physician Assistant Medical; Family Provider Family Medicine; PCP Family Medicine; Referring Provider Internal Medicine Cardiovascular Disease; Visit Provider Internal Medicine Cardiovascular Disease
DX: I48.0 Paroxysmal atrial fibrillation (principal); Z79.01 Long term (current) use of anticoagulants
CPT/HCPCS: 36415; 84439; 84443; 85610

== ENCOUNTER → 2019-11-15 16:48 | Outpatient (CLI) | payer MEDICARE, OTHER, SELFPAY ==
[2019-10-30 10:08] VITALS: BMI 32.8
--- NOTE | 2019-11-15 17:00 | RAD_ITS ---
STUDY: X-RAY - LUMBAR SPINE REASON FOR EXAM: Male, 84 years old. Injury in the lumbar region 2 days ago. Constant pain in the L5-S1 region. History of thoracic spinal surgery. TECHNIQUE: 3 view(s) of the lumbar spine were obtained. COMPARISON: June 15, 2018. FINDINGS: Normal lumbar lordosis. There is no substantial scoliosis. There is a normal alignment of the vertebrae. There is diffuse osteopenia of the visualized osseous structures. There is evidence for vertebral augmentation at L1. This is stable compression deformity superior endplate of L2. Remainder of the vertebral axial heights are maintained. There is minimal endplate spondylosis and disc space narrowing unchanged from the prior exam. There is no acute fracture or subluxation. There is atherosclerotic calcification of the abdominal aorta without a demonstrated aneurysm. RAD/Lumbar Spine 2 or 3 Views IMPRESSION: 1. Stable compression deformity of L2. 2. Evidence of vertebral augmentation at L1. 3. No acute abnormality or interval change. Electronically Signed: Salvador Quinteros DO at 17:55 EDT Tel [phone], Service support ,
== END ==
PROVIDERS: PCP Family Medicine; Referring Provider Anesthesiology Pain Medicine; Visit Provider Anesthesiology Pain Medicine
DX: Z04.3 Encounter for examination and observation following other accident (principal)
CPT/HCPCS: 72100

== ENCOUNTER → 2019-11-28 11:54 | Outpatient (CLI) | payer MEDICARE, OTHER, SELFPAY ==
[2019-10-30 10:08] VITALS: BMI 32.8
[2019-11-28 15:24] LABS: International Normalized Ratio 1.8; Prothrombin Time (Protime)PT. 20.5 SECONDS (11.7-14.9)
== END ==
PROVIDERS: PCP Family Medicine; Visit Provider Internal Medicine Cardiovascular Disease
DX: I48.0 Paroxysmal atrial fibrillation (principal); Z79.01 Long term (current) use of anticoagulants
CPT/HCPCS: 36415; 85610

== ENCOUNTER → 2019-12-07 10:05 | Outpatient (CLI) | payer MEDICARE, OTHER, SELFPAY ==
[2019-10-30 10:08] VITALS: BMI 32.8
--- NOTE | 2019-12-07 10:12 | MRI_ITS ---
STUDY: MRI LUMBAR SPINE WITHOUT CONTRAST REASON FOR EXAM: Male, 84 years old. chronic back pain, compression fx TECHNIQUE: Standardized fat and water weighted pulse sequences were obtained in the sagittal and axial planes. COMPARISON: X-ray 11/15/2019 FINDINGS: T12-L1: Normal endplates. Normal disc height, hydration and morphology. Normal bilateral facet joints. Normal central canal and bilateral lateral recesses. Normal bilateral intervertebral neural foramina. Normal lumbar lordosis. There is no substantial scoliosis. Normal conus medullaris that terminates at the L1. Methylmethacrylate within the L1 vertebral body consistent with vertebroplasty. Chronic mild wedge compression fracture of L2 with fatty replacement of the superior endplate. Acute mild compression fracture of the superior endplate of L5 without retropulsion into the spinal canal. L1-2: Mild bilobed disc protrusion produces mild spinal stenosis and mild bilateral neural foraminal stenosis. L2-3: Moderate bilateral facet hypertrophy and ligament flavum hypertrophy. Moderate bilobed disc protrusion produces moderate spinal stenosis and mild bilateral neural foraminal stenosis. L3-4: Moderate bilateral facet hypertrophy and severe ligament flavum hypertrophy. Moderate bilobed disc protrusion produces severe spinal stenosis with the moderate bilateral neural foraminal stenosis with abutment of the exiting L3 nerve roots bilaterally. L4-5: Mild bilateral facet hypertrophy and moderate ligament flavum hypertrophy. Moderate broad disc protrusion produces moderate spinal stenosis and mild bilateral neural foraminal stenosis. L5-S1: Severe left facet hypertrophy and moderate right facet hypertrophy with mild ligament flavum hypertrophy. Mild broad disc protrusion produces mild spinal stenosis and mild bilateral neural foraminal stenosis. Normal visualized sacral ala. There is a left renal cyst. MRI/Spine Lumbar (Routine) IMPRESSION: 1. Acute mild compression fracture of L5 without retropulsion into the spinal canal. 2. Chronic mild wedge compression fracture of L2 with fatty replacement superior endplate. 3. Status post vertebroplasty of L1. 4. Diffuse degenerative disc disease as described above. Electronically Signed: Enrique Schmidt MD at 12:13 EDT Tel , Service support ,
== END ==
PROVIDERS: PCP Family Medicine; Referring Provider Family Medicine; Visit Provider Family Medicine
DX: M54.5 Low back pain (principal); M47.16 Other spondylosis with myelopathy, lumbar region; M99.83 Other biomechanical lesions of lumbar region
CPT/HCPCS: 72148

== ENCOUNTER 2019-12-18 12:54 | Inpatient (IN) | payer MEDICARE, OTHER, SELFPAY ==
[2019-10-30 10:08] VITALS: BMI 32.8
[2019-12-18] VITALS (10 sets, daily range): BP systolic 136–190; BP diastolic 67–127; PULSE 54–61; RESP 18; TEMP 36.6–36.9; O2SAT 96–100; BMI 34.2; BMI 30.9
--- NOTE | 2019-12-18 13:19 | CT_ITS ---
STUDY: CT ABDOMEN AND PELVIS WITHOUT CONTRAST REASON FOR EXAM: Male, 84 years old. N/V X 4 DAYS RADIATION DOSAGE (If Supplied By Facility): CTDIvol = ( 16.29 ) mGy, DLP = ( 830.13 ) mGycm TECHNIQUE: Transaxial images were obtained from the dome of the diaphragm to the symphysis pubis without oral contrast, and without intravenous contrast. Sagittal and coronal images were reconstructed. Individualized dose optimization techniques were used for this CT. COMPARISON: None. FINDINGS: There are chronic interstitial fibrotic changes of the lung bases. The visualized portions of the heart are within normal limits. There is a cyst in the upper part of the segment #8 of the liver measures measures 2.4 cm. Normal gallbladder and extrahepatic biliary system. Normal spleen. Normal pancreas. Normal bilateral adrenal glands. Multiple bilateral renal cysts the largest is in the left kidney measures 6.5 cm. There is a stone in the left kidney measures 3 mm without hydronephrosis. There is a small hiatal hernia. Normal small intestine. Normal colon. There is non-visualization of the appendix. There is diffuse atherosclerotic calcification of the abdominal aorta with elongation and tortuosity, but without a demonstrated aneurysm. Normal inferior vena cava. Normal retroperitoneum. Normal urinary bladder. There is enlargement of the prostate gland. Normal abdominal wall. There are diffuse degenerative changes of the visualized lumbar spine. There is a recent compression fracture of L5 unchanged since the MRI from 12/07/2019. CT/Abdomen/Pelvis without Cont IMPRESSION: Multiple bilateral renal cysts the largest is in the left kidney measures 6.5 cm. There is a stone in the left kidney measures 3 mm without hydronephrosis. There is a recent compression fracture of L5 unchanged since the MRI from 12/07/2019. Electronically Signed: Gurmeet Etienne, at 14:21 EDT Tel , Service support ,
[2019-12-18 13:27] LABS: Absolute Lymphocyte Count 1.39 X10^3/uL (0.83-4.51); Absolute Neutrophil Count 5.5 X10^3/uL (2.0-7.7); Basophil# 0.01 X10^3/uL; Basophil% 0.1 % (0-1); Eosinophil# 0.04 X10^3/uL; Eosinophils% 0.5 % (0-5); Hematocrit 45.5 % (40-54); Hemoglobin 16.1 g/dL (13.0-16.5); Lymphocyte # 1.39 X10^3/ul (4.0); Mean Corp Hgb Conc 35.4 g/dL (32-36); Mean Corpuscular Hgb 31.4 pg (27.0-32.0); Mean Corpuscular Volume 88.9 fL (80-94); Mean Platelet Vol. 9.1 fl (6.2-12.0); Monocyte# 0.74 X10^3/uL; Monocyte% 9.6 % (0-10); NRBC Flagged by Analyzer 0 % (0-5); Neutrophil # 5.52 X10^3/uL (2.7-7.7); Neutrophil % 71.5 % (47-70); Platelet Count 240 K/mm3 (150-450); RBC Distribution Width CV 12.2 % (11.6-14.6); RBC Distribution Width SD 40.1 fl (35.1-43.9); Red Blood Count 5.12 M/mm3 (4.6-6.2); White Blood Count 7.7 K/mm3 (4.4-11.0)
[2019-12-18] MEDS: 0.9% Normal Saline 1,000 ML 1000 ML IV (13:27)
[2019-12-18 13:44] LABS: AST(SGOT) 44 U/L (15-37); Alanine Aminotransfer ALT/SGPT 42 U/L (16-61); Albumin, Serum 3.5 g/dL (3.2-5.0); Alkaline Phosphatase 129 U/L (45-117); Anion Gap 11 (5-15); BUN 14 mg/dL (7-18); BUN/Creat Ratio 12.1 RATIO (10-20); Bilirubin, Direct 0.42 mg/dL (0.00-0.30); Calcium,Total 9.5 mg/dL (8.5-10.1); Chloride 103 mmol/L (98-107); Creatinine, Serum 1.16 mg/dL (0.70-1.30); EST Glomerular Filtration Rate 64 mL/min (>60); Est Glom Filt Rate - Afr Amer 77 mL/min (>60); Estimated Creatinine Clearance 45.04 ml/min; Globulin 4.7 g/dL (2.2-4.2); Glucose 113 mg/dL (74-106); Lipase 29 U/L (73-393); Potassium 2.9 mmol/L (3.5-5.1); Protein, Total 8.2 g/dL (6.4-8.2); Sodium Level 138 mmol/L (136-145)
[2019-12-18 14:10] LABS: Bacteria 0 SEEN /hpf (None Seen); Mucous, Urine 0 SEEN /hpf (<or=2+); Red Blood Cells-Urine 0 SEEN /hpf (0-5); White Blood Cells 0 SEEN /hpf (0-5)
[2019-12-18 14:15] LABS: Color, Urine Yellow (Yellow); Glucose, Dipstick Normal (Normal); Leukocyte Esterase-Dipstick Negative /ul (Negative); Nitrite-Dipstick Negative (Negative); Occult Blood-Urine Negative /ul (Negative); Protein-Dipstick 30 mg/dl (Negative); Specific Gravity, Urine 1.015 (1.002-1.030); Urine Bilirubin Dipstick Negative (Negative); Urine Clarity Sl. Cloudy (Clear); Urine Urobilinogen 8 mg/dl (Normal)
[2019-12-18 14:18] LABS: Ketone-Dipstick 150 mg/dl (Negative)
[2019-12-18 14:21] LABS: Squamous Epithelial Cells - UA 0-5 SEEN /hpf (0-5)
[2019-12-18] MEDS: Meclizine HCl 25 MG Tablet PO (15:01)
--- NOTE | 2019-12-18 15:07 | ED.VISSUMM ---
- ER Visit Summary Date of Service: 12/18/19 Chief Complaint: Nausea and vomiting History of Present Illness: The patient is a 84 M who states he has been having nausea vomiting. This is been ongoing for the past 4 days. He states he has had no bloody emesis. At times he does have some slight epigastric abdominal discomfort. Nothing really makes it better or worse. Denies diarrhea. No urinary symptoms. Has not had a fever. He states he has a history of vertigo in the past. He denies any sick contacts. He was given Zofran by EMS and is now feeling much better. Physical Examination: Vital signs reviewed. HEENT exam unremarkable. Heart is regular rate and rhythm without murmurs. Lungs are clear to auscultation. Abdomen is soft with mild diffuse tenderness. He does have hyperactive bowel sounds. Extremities reveal no edema. Skin exam normal. Neurologic exam normal. Test Results: CBC normal. Potassium 2.9. Glucose 113. His total bilirubin is 2.1 and direct bilirubin 0.42. AST is 44. These are baseline for the patient. Urinalysis negative for infection. CAT scan shows kidney cysts and unchanged L5 compression fracture but nothing else acute. Emergency Department Course and Treatment: The patient was given IV fluids. He still feels better after the Zofran given by EMS. When I reevaluated him he now tells me that he is having vertigo symptoms and that is why he is having this dizziness. His neurologic exam is normal and benign. I do not feel he needs a CAT scan of his head. I gave him a dose of meclizine here. His work-up here is at baseline and fairly negative. I feel he can be treated as an outpatient. I will give him Zofran ODT for home. I will treat him with potassium here and at home as well. I will give him some meclizine to help with the vertigo. He will follow-up with his PCP. Treatment Plan: [] Disposition: Discharge Impression: Nausea and vomiting, vertigo, hypokalemia This note was generated with Reapp[employer]ation software. It may contain incorrect words, spelling, and punctuation that were not noted in review of the chart prior to signing ED Disposition - Plan for ED Patient: Disposition: Home or Assisted Living Instructions: ED Diet for Vomiting or Diarrhea Adult Prescriptions: Meclizine HCl [Antivert] 25 mg PO 4X/DAY PRN PRN #20 tab PRN Reason: Dizziness Transmission Status: Pending to [facility] Potassium Chloride 20 meq PO DAILY #10 [email or web address].[email or web address] Transmission Status: Pending to [facility] Ondansetron [Zofran Odt] 4 mg PO Q8H PRN PRN #10 tab PRN Reason: Nausea Transmission Status: Pending to [facility] Referrals: Parish Marshall DO [Primary Care Provider] -
--- NOTE | 2019-12-18 15:38 | NURSING ---
MED SURG MINERVA WEAKNESS, N, V, HYPOKALEMIA
--- NOTE | 2019-12-18 15:58 | HP.PCM_ITS ---
<Madiha Owen - Last Filed: 12/18/19 16:13> Problem List (1) Sarcoma of face Status: Chronic (2) Atherosclerotic heart disease of [place] coronary artery without angina pectoris Status: Chronic (3) History of coronary artery stent placement Status: Chronic Comment: PCI-AB-LAD w/ taxus stent 06/2005 (4) Paroxysmal atrial fibrillation Status: Chronic (5) Premature ventricular contractions Status: Chronic (6) Essential (primary) hypertension Status: Chronic (7) HLD (hyperlipidemia) Status: Chronic (8) Claudication Status: Chronic (9) [facility] current use of anticoagulant Status: Chronic History of Present Illness Date of Admission: 12/18/19 Chief Complaint: Nausea, vomiting, vertigo, weakness. The patient is a 84 year old M who presents emergency room due to nausea, vomiting, vertigo and weakness. Patient states his symptoms began approximately 4 days ago and he has been unable to keep down food or drink. He denies diarrhea. Denies fever, chills. Denies loss of taste or smell. He states he has a history of intermittent vertigo and he does not feel it is causing his nausea and vomiting. He reports ongoing back pain. He has seen Dr. Garcia in the past for intervention. A few weeks ago he was lifting heavy objects and had increased pain. MRI of lumbar spine 12/07/2019 demonstrated acute compression fracture of L5. Patient states his back pain is currently tolerable. He has a past medical history of paroxysmal atrial fibrillation, CAD with history of stent, hypertension, hyperlipidemia, hypothyroidism, GERD, chronic back pain. Past Medical History Past Medical History (Chronic Problems): Chronic Problems (Last Updated 12/18/19 @ 15:[address] Lisa Skelton MD) Sarcoma of face (Chronic) Atherosclerotic heart disease of [place] coronary artery without angina pectoris (Chronic) History of coronary artery stent placement (Chronic 06/2005) PCI-AB-LAD w/ taxus stent 06/2005 Paroxysmal atrial fibrillation (Chronic) Premature ventricular contractions (Chronic) Essential (primary) hypertension (Chronic) HLD (hyperlipidemia) (Chronic) Claudication (Chronic) [facility] current use of anticoagulant (Chronic) Medical History: Medical History (Last Updated 12/18/19 @ 15:[address] 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) Z79.01 GERD (gastroesophageal reflux disease) K21.9 Iatrogenic hypothyroidism E03.2 Obesity (BMI 30.0-34.9) E66.9 Allergies lidocaine Allergy (Verified 12/18/19 13:00) Shortness of breath/PVC'S lovastatin Allergy (Verified 12/18/19 13:00) Unknown niacin [From Advicor] Allergy (Verified 12/18/19 13:00) Unknown prazosin HCl [From Minipress] Allergy (Verified 12/18/19 13:00) Unknown Home Medications: Ambulatory Orders Medication Instructions Recorded Glucosamine/MSM/Chondroitin A 1 ea PO DAILY 06/11/13 [Glucosamine Chondroit MSM Tab] Levothyroxine [Synthroid] 125 mcg PO DAILY 06/11/13 Multivitamins,Therapeutic 1 tab PO DAILY 06/11/13 [Multivitamin] [place]-3 Fatty Acids/Fish Oil 1,000 mg PO DAILY 06/11/13 [[place] 3 1,000 mg Softgel] Aspirin E.C. [Ecotrin] 81 mg PO QHS 02/14/14 Nitroglycerin (INPATIENT USE) 0.4 mg SUBLINGUAL Q5M PRN 07/12/14 [Nitrostat] amiodarone 200 mg tablet 100 mg PO DAILY #45 tab 02/12/19 amlodipine 10 mg tablet 10 mg PO DAILY #90 tab 02/12/19 benazepril 20 mg tablet 20 mg PO DAILY #90 tab 02/12/19 hydrochlorothiazide 25 mg tablet 25 mg PO DAILY #90 tab 02/12/19 metoprolol tartrate 25 mg tablet 12.5 mg PO BID tab 10/30/19 Meclizine HCl [Antivert] 25 mg PO 4X/DAY PRN PRN #20 tab 12/18/19 Potassium Chloride 20 meq PO DAILY #10 tab.er.prt 12/18/19 Warfarin Sodium 5 mg PO SUTUWETHFRSA 12/18/19 Warfarin [Coumadin (PBKC)] 2.5 mg PO MO 12/18/19 Surgical History: Surgical History (Last Updated 12/18/19 @ 15:[address] Lisa Skelton MD) History of coronary artery stent placement (Chronic) Onset Date: 06/2005 Z95.5 PCI-AB-LAD w/ taxus stent 06/2005 History of cardioversion Onset Date: 06/2014 Z98.890 2009, 06/2014, 06/2014 History of kyphoplasty Z98.890 History of laparoscopic cholecystectomy Z98.890, Z90.49 History of left heart catheterization Onset Date: 07/03/18 Z98.890 History of total left knee replacement (TKR) Onset Date: 06/2013 Z96.652 Surgical History: angioplasty, cholecystectomy, herniorrhaphy, total knee arthroplasty, tonsillectomy, - - Hemmert ectomy, right shoulder arthroscopic surgery. Psychiatric History: No pertinent psych hx Lives: Spouse/ Significant Other Smoking Status: Never smoker Alcohol: None Drugs: None - *Family History Maternal Family History: Family History (Last Reviewed 12/18/19 @ 16:02 by DERRICK Cuello) Father Cancer Mother Hypertension Myocardial infarction Sudden cardiac Brother Myocardial infarction valve replacement Sister Hypertension Sister Hypertension History Items: Heart Disease, Hypertension Paternal Family History: Family History (Last Reviewed 12/18/19 @ 16:02 by DERRICK Cuello) Father Cancer Mother Hypertension Myocardial infarction Sudden cardiac Brother Myocardial infarction valve replacement Sister Hypertension Sister Hypertension History Items: Cancer Sibling Family History: Family History (Last Reviewed 12/18/19 @ 16:02 by DERRICK Cuello) Father Cancer Mother Hypertension Myocardial infarction Sudden cardiac Brother Myocardial infarction valve replacement Sister Hypertension Sister Hypertension History Items: Heart Disease Review of Systems Constitutional: Reports: Malaise, - - Poor appetite. Denies: Chills, Fever HEENT: Denies: Head Aches, Sinus Congestion, Sinus Drainage Cardiovascular: Denies: Chest Pain, Palpitations Respiratory: Denies: Cough, Shortness of breath at rest, Sputum production Gastrointestinal: Reports: Nausea, Vomiting. Denies: Abdominal Pain, Constipation, Diarrhea Genitourinary: Denies: Dysuria Musculoskeletal: Reports: Back Pain - Chronic Skin: Denies: Rash, Wounds Neurological: Denies: Numbness, Tingling, Focal weakness Psychiatric: Denies: Anxiety, Depression, Homicidal Ideations, Suicidal Ideations Hematologic/ Lymphatic: Denies: Easy Bruising, Easy Bleeding VTE Information - Inpt Only VTE Present on Admission: No VTE Mechan Device Prophylaxis: None VTE Pharm Prophylaxis ordered?: Yes - Physical Exam Vitals/I&O's: Vital Signs Temp Pulse Resp BP Pulse Ox 98.4 F 61 18 179/110 H 98 12/18/19 15:44 12/18/19 15:44 12/18/19 15:44 12/18/19 15:44 12/18/19 15:44 Oxygen Delivery Method Room Air Weight: 225 lb 1.471 oz Body Mass Index (BMI) 34.2 Intake and Output for Last 24 Hours 12/16/19 12/17/19 12/18/19 23:59 23:59 23:59 Intake Total 1000 / 1000 Balance 1000 / 1000 General: Alert, Oriented x3, Cooperative HEENT: Atraumatic, PERRLA, EOMI, Normocephalic Oral: Dry Mucosa Neck: Supple, No JVD, Negative Carotid Bruits Lungs: Clear to auscultation, Normal air movement Cardiovascular: Regular rate, No murmurs Abdomen: Bowel Sounds Present, Soft, Non Tender, Non-Distended Extremities: No clubbing, No cyanosis, No edema, Capillary Refill Less than 3 Seconds Skin: No rashes, No breakdown Musculoskeletal: No Tenderness to Palpation of Joints or Extremities Neurological: Cranial nerves II-XII grossly intact, Neuro grossly intact Psych/Mental Status: Normal Affect, Appropriate Laboratory Results 12/18/19 13:13: WBC 7.7, RBC 5.12, Hgb 16.1, Hct 45.5, MCV 88.9, MCH 31.4, MCHC 35.4, RDW Std Deviation 40.1, RDW Coeff of Roger 12.2, Plt Count 240, MPV 9.1, Immature Gran % (Auto) 0.300, Neut % (Auto) 71.5 H, Lymph % (Auto) 18.0 L, Evangeline % (Auto) 9.6, Eos % (Auto) 0.5, Baso % (Auto) 0.1, Absolute Neuts (auto) 5.5, Absolute Lymphs (auto) 1.39, Nucleated RBC % 0 12/18/19 13:13: Sodium 138, Potassium 2.9 L, Chloride 103, Carbon Dioxide 24.0, Anion Gap 11, BUN 14, Creatinine 1.16, Estim Creat Clear Calc 45.04, Est GFR (MDRD) Af Amer 77, Est GFR (MDRD) Non-Af 64, BUN/Creatinine Ratio 12.1, Glucose 113 H, Calcium 9.5, Total Bilirubin 2.10 H, Direct Bilirubin 0.42 H, AST 44 H, ALT 42, Alkaline Phosphatase 129 H, Total Protein 8.2, Albumin 3.5, Globulin 4.7 H, Lipase 29 L 12/18/19 14:01: Urine Color Yellow, Urine Clarity Sl. Cloudy, Urine pH 8.0, Ur Specific [place] 1.015, Urine Protein 30 H, Urine Glucose (UA) Normal, Urine Ketones 150 H, Urine Occult Blood Negative, Urine Nitrite Negative, Urine Bilirubin Negative, Urine Urobilinogen 8 H, Ur Leukocyte Esterase Negative, Urine RBC 0 SEEN, Urine WBC 0 SEEN, Ur Squamous Epith Cells 0-5 SEEN, Urine Bacteria 0 SEEN, Urine Mucus 0 SEEN Assessment/Plan 1. Intractable nausea, vomiting-suspect viral gastroenteritis. No diarrhea. CT of abdomen pelvis shows multiple bilateral renal cyst. Otherwise no acute abdominal process. UA unremarkable. PRN antiemetics. IV fluids. 2. Hypokalemia-secondary #1. Replace per protocol, trend BMP. Check magnesium. 3. Acute on chronic vertigo-continue PRN meclizine regimen. PT/OT. 4. Paroxysmal atrial fibrillation-on amiodarone, metoprolol, Coumadin. 5. CAD with history of stent- Follows with Dr. Espinal. Continue aspirin, beta- ivory, Coumadin. 6. Hypertension-elevated on admission. Suspect secondary to nausea, vomiting and unable to take home medication. PRN hydralazine for systolic blood pressure greater than 160. Continue home antihypertensive regimen including amlodipine, and benazepril, metoprolol if able to tolerate oral intake. Hold HCTZ. 7. Hyperlipidemia-allergy to statin. 8. Hypothyroidism-continue Synthroid regimen. 9. GERD- famotidine. 10. Chronic back pain with recent L5 compression fracture- Follows with Dr. Garcia. PRN pain regimen. PT/OT. DVT prophylaxis-Coumadin CODE STATUS: Discussed with patient in length. Patient requested DNR CCA no intubation status. This patient was seen by DERRICK Cuello under the supervision of Dr. Skelton. <Lisa Skelton - Last Filed: 12/18/19 16:47> History of Present Illness The patient is a 84 year old M [] Past Medical History Medical History: Medical History (Last Updated 12/18/19 @ 15:[address] 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 Lisa Skelton MD) History of coronary artery stent placement (Chronic) Onset Date: 06/2005 Z95.5 PCI-AB-LAD w/ taxus stent 06/2005 History of cardioversion Onset Date: 06/2014 Z98.890 2009, 06/2014, 06/2014 History of kyphoplasty Z98.890 History of laparoscopic cholecystectomy Z98.890, Z90.49 History of left heart catheterization Onset Date: 07/03/18 Z98.890 History of total left knee replacement (TKR) Onset Date: 06/2013 Z96.652 - *Family History Maternal Family History: Family History (Last Reviewed 12/18/19 @ 16:02 by DERRICK Cuello) Father Cancer Mother Hypertension Myocardial infarction Sudden cardiac Brother Myocardial infarction valve replacement Sister Hypertension Sister Hypertension Paternal Family History: Family History (Last Reviewed 12/18/19 @ 16:02 by DERRICK Cuello) Father Cancer Mother Hypertension Myocardial infarction Sudden cardiac Brother Myocardial infarction valve replacement Sister Hypertension Sister Hypertension Sibling Family History: Family History (Last Reviewed 12/18/19 @ 16:02 by DERRICK Cuello) Father Cancer Mother Hypertension Myocardial infarction Sudden cardiac Brother Myocardial infarction valve replacement Sister Hypertension Sister Hypertension - Physical Exam Vitals/I&O's: Vital Signs Temp Pulse Resp BP Pulse Ox 97.9 F 55 L 18 190/127 H 100 12/18/19 16:18 12/18/19 16:18 12/18/19 16:18 12/18/19 16:18 12/18/19 16:18 Oxygen Delivery Method Room Air Weight: 203 lb 1.6 oz Body Mass Index (BMI) 30.9 Intake and Output for Last 24 Hours 12/16/19 12/17/19 12/18/19 23:59 23:59 23:59 Intake Total 1000 / 1000 Balance 1000 / 1000 Laboratory Results 12/18/19 13:13: WBC 7.7, RBC 5.12, Hgb 16.1, Hct 45.5, MCV 88.9, MCH 31.4, MCHC 35.4, RDW Std Deviation 40.1, RDW Coeff of [place] 12.2, Plt Count 240, MPV 9.1, Immature Gran % (Auto) 0.300, Neut % (Auto) 71.5 H, Lymph % (Auto) 18.0 L, Evangeline % (Auto) 9.6, Eos % (Auto) 0.5, Baso % (Auto) 0.1, Absolute Neuts (auto) 5.5, Absolute Lymphs (auto) 1.39, Nucleated RBC % 0 12/18/19 13:13: Sodium 138, Potassium 2.9 L, Chloride 103, Carbon Dioxide 24.0, Anion Gap 11, BUN 14, Creatinine 1.16, Estim Creat Clear Calc 45.04, Est GFR (MDRD) Af Amer 77, Est GFR (MDRD) Non-Af 64, BUN/Creatinine Ratio 12.1, Glucose 113 H, Calcium 9.5, Total Bilirubin 2.10 H, Direct Bilirubin 0.42 H, AST 44 H, ALT 42, Alkaline Phosphatase 129 H, Total Protein 8.2, Albumin 3.5, Globulin 4.7 H, Lipase 29 L 12/18/19 13:13: Magnesium Pending 12/18/19 13:13: PT Pending, INR Pending 12/18/19 14:01: Urine Color Yellow, Urine Clarity Sl. Cloudy, Urine pH 8.0, Ur Specific [place] 1.015, Urine Protein 30 H, Urine Glucose (UA) Normal, Urine Ketones 150 H, Urine Occult Blood Negative, Urine Nitrite Negative, Urine Bilirubin Negative, Urine Urobilinogen 8 H, Ur Leukocyte Esterase Negative, Urine RBC 0 SEEN, Urine WBC 0 SEEN, Ur Squamous Epith Cells 0-5 SEEN, Urine Bacteria 0 SEEN, Urine Mucus 0 SEEN Current Medications Acetaminophen (Tylenol) 650 mg PO Q6H PRN PRN PRN Reason: Pain Score 1-10/Temp > 100.7 F Hydralazine HCl (Apresoline Iv) 10 mg IV Q4H PRN PRN PRN Reason: BLOOD PRESSURE Sodium Chloride () 1,000 mls @ 75 mls/hr IV .[id number] MIR Stop: 12/19/19 18:52 Potassium Chloride () 10 meq in 100 mls @ 100 mls/hr IV BOLUS Q1H MIR Stop: 12/18/19 18:59 Sodium Chloride () 250 mls @ 15 mls/hr IV .[id number] PRN PRN Reason: Saline Flush Sodium Chloride () 250 mls @ 15 mls/hr IV .[id number] PRN PRN Reason: Additional IVPB Infusion Ondansetron HCl (Zofran) 4 mg IV Q8H PRN PRN PRN Reason: NAUSEA/VOMITING Senna/Docusate Sodium (Senokot-S, Amy-Colace) 2 tablet PO BID PRN PRN PRN Reason: Constipation Sodium Chloride () 10 - 40 ml IV UD PRN PRN Reason: SALINE FLUSH Zolpidem Tartrate (Ambien (Generic)) 5 mg PO QHS PRN PRN PRN Reason: INSOMNIA Assessment/Plan Hospitalist note: I am seeing this patient in conjunction with Madiha villavicencio seen and examined the patient. History and physical, laboratory data and imaging studies reviewed and I concur with the above admission and treatment plan. Patient presented to the emergency room because of nausea, vomiting, weakness and vertigo. Symptoms started 4 days ago with mainly nausea and vomiting, not able to keep food or drinks down to her stomach, no aggravating or relieving factors and no other associated symptoms. Denies abdominal pain, constipation or diarrhea. He denied fever chills. Denied urinary symptoms. He reported intermittent vertigo which is chronic and usually he does not get nausea and vomiting with it. He reported intermittent back pain and he was diagnosed with L5 compression fracture on MRI done on December 07, 2019. In the emergency department, his blood pressure was elevated, other vital signs were stable. Routine blood work was remarkable for potassium of 2.9, otherwise normal. LFT revealed total bilirubin of 2.1 which is chronic, liver transa minases and alkaline phosphatase are normal. Lipase was normal. Urinalysis revealed cloudy urine, negative for nitrite and leukocyte esterase, there was no WBCs and no bacteria seen. CT scan abdomen and pelvis without contrast revealed multiple bilateral renal cysts, small stone in the left kidney without hydronephrosis, recent compression fracture of L5, unchanged. - Physical Exam General: Alert, Oriented x3, Cooperative, No apparent distress. HEENT: Atraumatic, PERRLA, EOMI. Neck: Supple, No JVD, Negative Carotid Bruits, Trachea Midline, Thyroid Normal. Lungs: Clear to auscultation, Normal air movement, No rhonchi, No wheeze, No rales. Cardiovascular: Regular rate, Regular Rhythm, Normal S1, Normal S2, PMI Normal. Abdomen: Bowel Sounds Present, Soft, Non Tender, Non-Distended, No Hepato- splenomegaly. Extremities: No clubbing, No cyanosis, No edema Skin: No rashes, No breakdown Neurological: Cranial nerves are intact, neuro grossly intact Assessment and plan: #1 intractable nausea and vomiting: Could be due to viral gastroenteritis although there is no diarrhea. CT scan abdomen and pelvis reviewed as above. LFT revealed elevated bilirubin which is chronic, patient denied any right upper quadrant abdominal pain. He is afebrile, no leukocytosis. Plan: Admit to [facility] for observation, telemetry, gentle IV fluids for hydration, replace electrolytes as appropriate, IV antiemetics, check pro time and INR, repeat CBC and CMP tomorrow morning, PT OT evaluation and treatment. #2 hypokalemia: Probably due to HCTZ in addition to nausea and vomiting. Admission potassium was 2.9. Plan: Replace potassium with IV potassium chloride, check serum magnesium, repeat CMP tomorrow morning. #3 recent L5 compression fracture: Plan for pain control with OxyIR PRN. PT OT evaluation and treatment. #4 other chronic medical problems: Stable, continue current medications as above. This note was generated with [employer] dictation software. It may contain incorrect words, spelling, and punctuation that were not noted in checking the note before signing. OBSV E&M: [id number] Initial observation care L2
[2019-12-18] MEDS: 0.9% Saline Lock 10 ML Syringe IV (16:50)
[2019-12-18] MEDS: 0.9% Normal Saline 1,000 ML 75 ML IV (16:51)
[2019-12-18] MEDS: Potassium Chloride 10mEq/100mL 10 MEQ/100 ML IV.SOLN. 100 MEQ IV BOLUS (17:18)
[2019-12-18] MEDS: Ondansetron 4 MG/2 ML Vial IV (17:18)
[2019-12-18 17:21] LABS: International Normalized Ratio 2.2
[2019-12-18] MEDS: Potassium Chloride 10mEq/100mL 10 MEQ/100 ML IV.SOLN. 75 MEQ IV BOLUS (18:48)
[2019-12-18] MEDS: MELATONIN 3 MG TABLET PO (21:30)
[2019-12-18] MEDS: Aspirin E.C. 81 MG Tablet PO (21:30)
[2019-12-18] MEDS: Metoprolol Tartrate 25 MG Tablet 12.5 MG PO (21:30)
[2019-12-19] VITALS (11 sets, daily range): BP systolic 128–144; BP diastolic 63–84; PULSE 45–66; RESP 14–18; TEMP 36.6–37; O2SAT 94–96
[2019-12-19] MEDS: Ondansetron 4 MG/2 ML Vial IV (03:22)
[2019-12-19] MEDS: 0.9% Normal Saline 1,000 ML 75 ML IV (04:57)
[2019-12-19] MEDS: Levothyroxine 125 MCG Tablet PO (04:58)
[2019-12-19 06:53] LABS: Absolute Lymphocyte Count 2.29 X10^3/uL (0.83-4.51); Absolute Neutrophil Count 4.9 X10^3/uL (2.0-7.7); Basophil# 0.04 X10^3/uL; Basophil% 0.5 % (0-1); Eosinophil# 0.21 X10^3/uL; Eosinophils% 2.5 % (0-5); Hematocrit 44.8 % (40-54); Hemoglobin 15.3 g/dL (13.0-16.5); Lymphocyte # 2.29 X10^3/ul (4.0); Lymphocyte % 27.6 % (19-41); Mean Corp Hgb Conc 34.2 g/dL (32-36); Mean Corpuscular Hgb 31.3 pg (27.0-32.0); Mean Corpuscular Volume 91.6 fL (80-94); Monocyte# 0.86 X10^3/uL; Monocyte% 10.4 % (0-10); NRBC Flagged by Analyzer 0 % (0-5); Neutrophil # 4.88 X10^3/uL (2.7-7.7); Neutrophil % 58.8 % (47-70); Platelet Count 253 K/mm3 (150-450); RBC Distribution Width SD 43.8 fl (35.1-43.9); Red Blood Count 4.89 M/mm3 (4.6-6.2); White Blood Count 8.3 K/mm3 (4.4-11.0)
[2019-12-19 07:08] LABS: Prothrombin Time (Protime)PT. 22.2 SECONDS (11.7-14.9)
[2019-12-19 07:24] LABS: ALB/GLOB Ratio 0.7 RATIO (0.9-2.4); AST(SGOT) 40 U/L (15-37); Alanine Aminotransfer ALT/SGPT 41 U/L (16-61); Albumin, Serum 3.3 g/dL (3.2-5.0); Alkaline Phosphatase 125 U/L (45-117); Anion Gap 7 (5-15); BUN 13 mg/dL (7-18); BUN/Creat Ratio 11.6 RATIO (10-20); Calcium,Total 8.8 mg/dL (8.5-10.1); Chloride 110 mmol/L (98-107); Creatinine, Serum 1.12 mg/dL (0.70-1.30); EST Glomerular Filtration Rate 66 mL/min (>60); Est Glom Filt Rate - Afr Amer 80 mL/min (>60); Estimated Creatinine Clearance 46.65 ml/min; Globulin 4.5 g/dL (2.2-4.2); Glucose 89 mg/dL (74-106); Potassium 3.2 mmol/L (3.5-5.1); Protein, Total 7.8 g/dL (6.4-8.2); Sodium Level 141 mmol/L (136-145)
[2019-12-19] MEDS: Amiodarone 200 MG Tablet 100 MG PO (09:16)
[2019-12-19] MEDS: Lisinopril 20 MG Tablet PO (09:16)
[2019-12-19] MEDS: amLODIPine 10 MG Tablet PO (09:16)
[2019-12-19] MEDS: Metoprolol Tartrate 25 MG Tablet 12.5 MG PO ×2 (09:16→20:38)
--- NOTE | 2019-12-19 11:36 | PCM.DC ---
You will use the following diet at home:: No restrictions Discharge Activity: Return to Normal Activity Call your doctor if you observe: Shortness of breath, Dizziness, Fainting spells, Chest pain Instructions: ED Diet for Vomiting or Diarrhea Adult Allergies/Adverse Reactions: Allergies lidocaine Allergy (Verified 12/18/19 13:00) Shortness of breath/PVC'S lovastatin Allergy (Verified 12/18/19 13:00) Unknown niacin [From Advicor] Allergy (Verified 12/18/19 13:00) Unknown prazosin HCl [From Minipress] Allergy (Verified 12/18/19 13:00) Unknown Medications to take at Discharge Glucosamine/MSM/Chondroitin A [Glucosamine Chondroit MSM Tab] 1 ea PO DAILY 06/11/13 Levothyroxine [Synthroid] 125 mcg PO DAILY 06/11/13 Multivitamins,Therapeutic [Multivitamin] 1 tab PO DAILY 06/11/13 [place]-3 Fatty Acids/Fish Oil [[place] 3 1,000 mg Softgel] 1,000 mg PO DAILY 06/11/13 Aspirin E.C. [Ecotrin] 81 mg PO QHS 02/14/14 Nitroglycerin (INPATIENT USE) [Nitrostat] 0.4 mg SUBLINGUAL Q5M PRN 07/12/14 amiodarone 200 mg tablet 100 mg PO DAILY #45 tab 02/12/19 amlodipine 10 mg tablet 10 mg PO DAILY #90 tab 02/12/19 benazepril 20 mg tablet 20 mg PO DAILY #90 tab 02/12/19 hydrochlorothiazide 25 mg tablet 25 mg PO DAILY #90 tab 02/12/19 metoprolol tartrate 25 mg tablet 12.5 mg PO BID tab 10/30/19 Meclizine HCl [Antivert] 25 mg PO 4X/DAY PRN PRN #20 tab 12/18/19 Potassium Chloride 20 meq PO DAILY #10 tab.er.prt 12/18/19 Warfarin Sodium 5 mg PO SUTUWETHFRSA 12/18/19 Warfarin [Coumadin] 2.5 mg PO MO 12/18/19 Ondansetron HCl [Zofran] 4 mg PO Q8H PRN #30 tab 12/19/19 The following prescriptions were given: Meclizine HCl [Antivert] 25 mg PO 4X/DAY PRN PRN #20 tab PRN Reason: Dizziness Transmission Status: Received by [id number] Potassium Chloride 20 meq PO DAILY #10 tab.er.prt Transmission Status[id number] Ondansetron HCl [Zofran] 4 mg PO Q8H PRN #30 tab PRN Reason: Nausea Transmission Status: Pending to [facility] Primary Care Physician: Parish Marshall DO [Primary Care Provider] - Please follow up with your Primary Care Physician in: 3-5 days Test Results: Test results from this visit will be discussed in further detail at your follow-up appointment, if applicable. Proposed Discharge Date: 12/19/19
--- NOTE | 2019-12-19 11:38 | DS.PCM_ITS ---
Discharge Date and Diagnosis Date of Admission: 12/18/19 Date of Discharge: 12/19/19 - Primary Discharge Diagnosis Acute Problems: 1. Intractable nausea, vomiting-suspect viral gastroenteritis. 2. Hypokalemia-secondary #1. 3. Acute on chronic vertigo 4. Paroxysmal atrial fibrillation 5. CAD with history of stent 6. Hypertension 7. Hyperlipidemia 8. Hypothyroidism 9. GERD 10. Chronic back pain with recent L5 compression fracture - Secondary Discharge Diagnosis Chronic Problems: Chronic Problems (Last Updated 12/18/19 @ 15:[address] 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 There is a stone in the left kidney measures 3 mm without hydronephrosis. There is a recent compression fracture of L5 unchanged since the MRI from 12/07/2019. Electronically Signed: Gurmeet Etienne, at 14:21 EDT Tel , Service support , Operations: None Procedures: None Summary of Care Provided: The patient is a 84 year old M admitted 12/18/2019 due to nausea, vomiting, vertigo, weakness. 1. Intractable nausea, vomiting-suspect viral gastroenteritis. No diarrhea. CT of abdomen pelvis shows multiple bilateral renal cyst. Otherwise no acute abdominal process. UA unremarkable. Nausea/vomiting improved. Continue PRN Zofran at discharge. Diet as tolerated. Follow-up with PCP in 3 to 5 days. PT evaluation during admission recommended continued outpatient physical therapy. 2. Hypokalemia-secondary #1. Replace per protocol. Potassium supplementation at discharge. 3. Acute on chronic vertigo-continue PRN meclizine regimen. PT/OT. 4. Paroxysmal atrial fibrillation-on amiodarone, metoprolol, Coumadin. 5. CAD with history of stent- Follows with Dr. Espinal. Continue aspirin, beta- che, Coumadin. 6. Hypertension-stable, continue amlodipine, benazepril, metoprolol, HCTZ. 7. Hyperlipidemia-allergy to statin. 8. Hypothyroidism-continue Synthroid regimen. 9. GERD- famotidine. 10. Chronic back pain with recent L5 compression fracture- Follows with Dr. Garcia. PRN pain regimen. PT/OT. General: Alert, Oriented x3, Cooperative HEENT: Atraumatic, PERRLA, EOMI, Normocephalic Oral: Dry Mucosa Neck: Supple, No JVD, Negative Carotid Bruits Lungs: Clear to auscultation, Normal air movement Cardiovascular: Regular rate, No murmurs Abdomen: Bowel Sounds Present, Soft, Non Tender, Non-Distended Extremities: No clubbing, No cyanosis, No edema, Capillary Refill Less than 3 Seconds Skin: No rashes, No breakdown Musculoskeletal: No Tenderness to Palpation of Joints or Extremities Neurological: Cranial nerves II-XII grossly intact, Neuro grossly intact Psych/Mental Status: Normal Affect, Appropriate Patient seen and examined prior to discharge. Physical assessment as noted above. Patient is stable for discharge with follow up recommendations as noted above. This patient was seen by DERRICK Cuello under the supervision of Dr. Banks. - Physical Exam Vitals/I&O's: Vital Signs Temp Pulse Resp BP Pulse Ox 97.9 F 61 14 128/68 H 96 12/19/19 09:15 12/19/19 11:00 12/19/19 09:15 12/19/19 09:15 12/19/19 03:17 Oxygen Delivery Method Room Air Weight: 203 lb 1.6 oz Body Mass Index (BMI) 30.9 Intake and Output for Last 24 Hours 12/17/19 12/18/19 12/19/19 23:59 23:59 23:59 Intake Total 1201.25 / 1401.25 1107.5 / 1107.5 Output Total 350 / 700 1025 / 1025 Balance 851.25 / 701.25 82.5 / 82.5 Laboratory Results 12/18/19 13:13: WBC 7.7, RBC 5.12, Hgb 16.1, Hct 45.5, MCV 88.9, MCH 31.4, MCHC 35.4, RDW Std Deviation 40.1, RDW Coeff of Roger 12.2, Plt Count 240, MPV 9.1, Immature Gran % (Auto) 0.300, Neut % (Auto) 71.5 H, Lymph % (Auto) 18.0 L, [place] % (Auto) 9.6, Eos % (Auto) 0.5, Baso % (Auto) 0.1, Absolute Neuts (auto) 5.5, Absolute Lymphs (auto) 1.39, Nucleated RBC % 0 12/18/19 13:13: Sodium 138, Potassium 2.9 L, Chloride 103, Carbon Dioxide 24.0, Anion Gap 11, BUN 14, Creatinine 1.16, Estim Creat Clear Calc 45.04, Est GFR (MDRD) Af Amer 77, Est GFR (MDRD) Non-Af 64, BUN/Creatinine Ratio 12.1, Glucose 113 H, Calcium 9.5, Total Bilirubin 2.10 H, Direct Bilirubin 0.42 H, AST 44 H, ALT 42, Alkaline Phosphatase 129 H, Total Protein 8.2, Albumin 3.5, Globulin 4.7 H, Lipase 29 L 12/18/19 13:13: Magnesium 2.0 12/18/19 13:13: PT 24.0 H, INR 2.2 12/18/19 14:01: Urine Color Yellow, Urine Clarity Sl. Cloudy, Urine pH 8.0, Ur Specific [place] 1.015, Urine Protein 30 H, Urine Glucose (UA) Normal, Urine Ketones 150 H, Urine Occult Blood Negative, Urine Nitrite Negative, Urine Bilirubin Negative, Urine Urobilinogen 8 H, Ur Leukocyte Esterase Negative, Urine RBC 0 SEEN, Urine WBC 0 SEEN, Ur Squamous Epith Cells 0-5 SEEN, Urine Bacteria 0 SEEN, Urine Mucus 0 SEEN 12/19/19 06:42: WBC 8.3, RBC 4.89, Hgb 15.3, Hct 44.8, MCV 91.6, MCH 31.3, MCHC 34.2, RDW Std Deviation 43.8, RDW Coeff of Roger 13.0, Plt Count 253, MPV 9.0, Immature Gran % (Auto) 0.200, Neut % (Auto) 58.8, Lymph % (Auto) 27.6, [place] % (Auto) 10.4 H, Eos % (Auto) 2.5, Baso % (Auto) 0.5, Absolute Neuts (auto) 4.9, Absolute Lymphs (auto) 2.29, Nucleated RBC % 0 12/19/19 06:42: Sodium 141, Potassium 3.2 L, Chloride 110 H, Carbon Dioxide 24.0, Anion Gap 7, BUN 13, Creatinine 1.12, Estim Creat Clear Calc 46.65, Est GFR (MDRD) Af Amer 80, Est GFR (MDRD) Non-Af 66, BUN/Creatinine Ratio 11.6, Glucose 89, Calcium 8.8, Total Bilirubin 2.10 H, AST 40 H, ALT 41, Alkaline Phosphatase 125 H, Total Protein 7.8, Albumin 3.3, Globulin 4.5 H, [place] min/Globulin Ratio 0.7 L 12/19/19 06:42: PT 22.2 H, INR 2.0 Current Medications Acetaminophen (Tylenol) 650 mg PO Q6H PRN PRN PRN Reason: Pain Score 1-10/Temp > 100.7 F Amiod[facility]one [facility] ([facility]) [facility] Last Admin: 12/19/19 09:16 Dose: 100 mg Documented by: Amlodipine Besylate (Norvasc) 10 mg PO DAILY [facility] Last Admin: 12/19/19 09:16 Dose: 10 mg Documented by: Aspirin (Ecotrin) 81 mg PO QHS [facility] Last Admin: 12/18/19 21:30 Dose: 81 mg Documented by: Hydralazine HCl (Apresoline Iv) 10 mg IV Q4H PRN PRN PRN Reason: BLOOD PRESSURE Sodium Chloride () 1,000 mls @ 75 mls/hr IV .[id number] [facility] Stop: 12/19/19 18:52 Last Admin: 12/19/19 04:57 Dose: 75 mls/hr Documented by: Sodium Chloride () 250 mls @ 15 mls/hr IV .[id number] PRN PRN Reason: Saline Flush Last Infusion: 12/18/19 17:23 Dose: 0 mls/hr Documented by: Sodium Chloride () 250 mls @ 15 mls/hr IV .[id number] PRN PRN Reason: Additional IVPB Infusion Levothyroxine Sodium (Synthroid) 125 mcg PO DAILY@0600 [facility] Last Admin: 12/19/19 04:58 Dose: 125 mcg Documented by: Lisinopril (Zestril) 20 mg PO DAILY [facility] Last Admin: 12/19/19 09:16 Dose: 20 mg Documented by: Melatonin (Melatonin) 3 mg PO QHS [facility] Last Admin: 12/18/19 21:30 Dose: 3 mg Documented by: Metoprolol Tartrate (Lopressor (Beta Che)) 12.5 mg PO BID [facility] Last Admin: 12/19/19 09:16 Dose: 12.5 mg Documented by: Ondansetron HCl (Zofran) 4 mg IV Q8H PRN PRN PRN Reason: NAUSEA/VOMITING Last Admin: 12/19/19 03:22 Dose: 4 mg Documented by: Senna/Docusate Sodium (Senokot-S, Amy-Colace) 2 tablet PO BID PRN PRN PRN Reason: Constipation Sodium Chloride () 10 - 40 ml IV UD PRN PRN Reason: SALINE FLUSH Last Admin: 12/18/19 16:50 Dose: 10 ml Documented by: Warfarin Sodium (Jantoven) 2.5 mg PO Mo@1700 [facility] Warfarin Sodium (Jantoven) 5 mg PO SuTuWeThFrSa@1700 [facility] Zolpidem Tartrate (Ambien (Generic)) 5 mg PO QHS PRN PRN PRN Reason: INSOMNIA Discharge Diet: Light diet - advance as tolerated Discharge Activity: Return to Normal Activity Call your doctor if you observe: Shortness of breath, Dizziness, Fainting spells, Chest pain Home Medications: Medications to take at Discharge Glucosamine/MSM/Chondroitin A [Glucosamine Chondroit MSM Tab] 1 ea PO DAILY 06/11/13 Levothyroxine [Synthroid] 125 mcg PO DAILY 06/11/13 Multivitamins,Therapeutic [Multivitamin] 1 tab PO DAILY 06/11/13 Filley-3 Fatty Acids/Fish Oil [Filley 3 1,000 mg Softgel] 1,000 mg PO DAILY Aspirin E.C. [Ecotrin] 81 mg PO QHS 02/14/14 Nitroglycerin (INPATIENT USE) [Nitrostat] 0.4 mg SUBLINGUAL Q5M PRN 07/12/14 amiodarone 200 mg tablet 100 mg PO DAILY #45 tab 02/12/19 amlodipine 10 mg tablet 10 mg PO DAILY #90 tab 02/12/19 benazepril 20 mg tablet 20 mg PO DAILY #90 tab 02/12/19 hydrochlorothiazide 25 mg tablet 25 mg PO DAILY #90 tab 02/12/19 metoprolol tartrate 25 mg tablet 12.5 mg PO BID tab 10/30/19 Meclizine HCl [Antivert] 25 mg PO 4X/DAY PRN PRN #20 tab 12/18/19 Potassium Chloride 20 meq PO DAILY #10 tab.er.prt 12/18/19 Warfarin Sodium 5 mg PO [id number] 12/18/19 Warfarin [Coumadin] 2.5 mg PO MO 12/18/19 Ondansetron HCl [Zofran] 4 mg PO Q8H PRN #30 tab 12/19/19 Following Prescriptions Were Given to Patient: Meclizine HCl [Antivert] 25 mg PO 4X/DAY PRN PRN #20 tab PRN Reason: Dizziness Transmission Status: Received by [facility] 181 Potassium Chloride 20 meq PO DAILY #10 tab.er.prt Transmission Status: Received by [facility] 181 Ondansetron HCl [Zofran] 4 mg PO Q8H PRN #30 tab PRN Reason: Nausea Transmission Status: Pending to [facility] Primary Care Physician: Parish Marshall DO [Primary Care Provider] - Please follow up with your Primary Care Physician in: 3-5 days Patient Instructions: ED Diet for Vomiting or Diarrhea Adult Disposition: Home Minutes spent on discharge:: 35 Patient Condition:: Stable Medical Necessity - Tobacco Use Smoking Status: Never smoker Meaningful Use Info Meaningful Use Diagnoses (Choose all that apply): None applicable
--- NOTE | 2019-12-19 13:02 | PCM.PROGNOTE ---
<Madiha Owen - Last Filed: 12/19/19 13:12> Subjective: Patient seen and examined. Nausea, vomiting improved. Patient continues to feel weak. Initially planned on discharge however patient does not feel well enough to go home. - Physical Exam Vitals/I&O's: Vital Signs Temp Pulse Resp BP Pulse Ox 97.9 F 61 14 128/68 H 96 12/19/19 09:15 12/19/19 11:00 12/19/19 09:15 12/19/19 09:15 12/19/19 03:17 Oxygen Delivery Method Room Air Weight: 203 lb 1.6 oz Body Mass Index (BMI) 30.9 Intake and Output for Last 24 Hours 12/17/19 12/18/19 12/19/19 23:59 23:59 23:59 Intake Total 1201.25 / 1401.25 1107.5 / 1107.5 Output Total 350 / 700 1025 / 1025 Balance 851.25 / 701.25 82.5 / 82.5 General: Alert, Oriented x3, Cooperative HEENT: Atraumatic, PERRLA, EOMI, Normocephalic Neck: Supple, No JVD, Negative Carotid Bruits Lungs: Clear to auscultation, Normal air movement Cardiovascular: Regular rate, No murmurs Abdomen: Bowel Sounds Present, Soft, Non Tender Extremities: No edema, Capillary Refill Less than 3 Seconds Skin: No rashes, No breakdown Musculoskeletal: No Tenderness to Palpation of Joints or Extremities Neurological: Cranial nerves II-XII grossly intact, Neuro grossly intact Psych/Mental Status: Normal Affect, Appropriate Laboratory Results 12/18/19 13:13: WBC 7.7, RBC 5.12, Hgb 16.1, Hct 45.5, MCV 88.9, MCH 31.4, MCHC 35.4, RDW Std Deviation 40.1, RDW Coeff of Roger 12.2, Plt Count 240, MPV 9.1, Immature Gran % (Auto) 0.300, Neut % (Auto) 71.5 H, Lymph % (Auto) 18.0 L, Gray % (Auto) 9.6, Eos % (Auto) 0.5, Baso % (Auto) 0.1, Absolute Neuts (auto) 5.5, Absolute Lymphs (auto) 1.39, Nucleated RBC % 0 12/18/19 13:13: Sodium 138, Potassium 2.9 L, Chloride 103, Carbon Dioxide 24.0, Anion Gap 11, BUN 14, Creatinine 1.16, Estim Creat Clear Calc 45.04, Est GFR (MDRD) Af Amer 77, Est GFR (MDRD) Non-Af 64, BUN/Creatinine Ratio 12.1, Glucose 113 H, Calcium 9.5, Total Bilirubin 2.10 H, Direct Bilirubin 0.42 H, AST 44 H, ALT 42, Alkaline Phosphatase 129 H, Total Protein 8.2, Albumin 3.5, Globulin 4.7 H, Lipase 29 L 12/18/19 13:13: Magnesium 2.0 12/18/19 13:13: PT 24.0 H, INR 2.2 12/18/19 14:01: Urine Color Yellow, Urine Clarity Sl. Cloudy, Urine pH 8.0, Ur Specific [place] 1.015, Urine Protein 30 H, Urine Glucose (UA) Normal, Urine Ketones 150 H, Urine Occult Blood Negative, Urine Nitrite Negative, Urine Bilirubin Negative, Urine Urobilinogen 8 H, Ur Leukocyte Esterase Negative, Urine RBC 0 SEEN, Urine WBC 0 SEEN, Ur Squamous Epith Cells 0-5 SEEN, Urine Bacteria 0 SEEN, Urine Mucus 0 SEEN 12/19/19 06:42: WBC 8.3, RBC 4.89, Hgb 15.3, Hct 44.8, MCV 91.6, MCH 31.3, MCHC 34.2, RDW Std Deviation 43.8, RDW Coeff of Roger 13.0, Plt Count 253, MPV 9.0, Immature Gran % (Auto) 0.200, Neut % (Auto) 58.8, Lymph % (Auto) 27.6, Gray % (Auto) 10.4 H, Eos % (Auto) 2.5, Baso % (Auto) 0.5, Absolute Neuts (auto) 4.9, Absolute Lymphs (auto) 2.29, Nucleated RBC % 0 12/19/19 06:42: Sodium 141, Potassium 3.2 L, Chloride 110 H, Carbon Dioxide 24.0, Anion Gap 7, BUN 13, Creatinine 1.12, Estim Creat Clear Calc 46.65, Est GFR (MDRD) Af Amer 80, Est GFR (MDRD) Non-Af 66, BUN/Creatinine Ratio 11.6, Glucose 89, Calcium 8.8, Total Bilirubin 2.10 H, AST 40 H, ALT 41, Alkaline Phosphatase 125 H, Total Protein 7.8, Albumin 3.3, Globulin 4.5 H, Albumin/Globulin Ratio 0.7 L 12/19/19 06:42: PT 22.2 H, INR 2.0 Current Medications Acetaminophen (Tylenol) 650 mg PO Q6H PRN PRN PRN Reason: Pain Score 1-10/Temp > 100.7 F [facility] Last Admin: 12/19/19 09:16 Dose: 100 mg Documented by: Amlodipine Besylate (Norvasc) 10 mg PO DAILY [facility] Last Admin: 12/19/19 09:16 Dose: 10 mg Documented by: Aspirin (Ecotrin) 81 mg PO QHS [facility] Last Admin: 12/18/19 21:30 Dose: 81 mg Documented by: Hydralazine HCl (Apresoline Iv) 10 mg IV Q4H PRN PRN PRN Reason: BLOOD PRESSURE Sodium Chloride () 1,000 mls @ 75 mls/hr IV .[id number] [facility] Stop: 12/19/19 18:52 Last Admin: 12/19/19 04:57 Dose: 75 mls/hr Documented by: Sodium Chloride () 250 mls @ 15 mls/hr IV .[id number] PRN PRN Reason: Saline Flush Last Infusion: 12/18/19 17:23 Dose: 0 mls/hr Documented by: Sodium Chloride () 250 mls @ 15 mls/hr IV .[id number] PRN PRN Reason: Additional IVPB Infusion Levothyroxine Sodium (Synthroid) 125 mcg PO DAILY@0600 [facility] Last Admin: 12/19/19 04:58 Dose: 125 mcg Documented by: Lisinopril (Zestril) 20 mg PO DAILY [facility] Last Admin: 12/19/19 09:16 Dose: 20 mg Documented by: Melatonin (Melatonin) 3 mg PO QHS [facility] Last Admin: 12/18/19 21:30 Dose: 3 mg Documented by: Metoprolol Tartrate (Lopressor (Beta Che)) 12.5 mg PO BID [facility] Last Admin: 12/19/19 09:16 Dose: 12.5 mg Documented by: Ondansetron HCl (Zofran) 4 mg IV Q8H PRN PRN PRN Reason: NAUSEA/VOMITING Last Admin: 12/19/19 03:22 Dose: 4 mg Documented by: Senna/Docusate Sodium (Senokot-S, Amy-Colace) 2 tablet PO BID PRN PRN PRN Reason: Constipation Sodium Chloride () 10 - 40 ml IV UD PRN PRN Reason: SALINE FLUSH Last Admin: 12/18/19 16:50 Dose: 10 ml Documented by: Warfarin Sodium (Jantoven) 2.5 mg PO Mo@1700 [facility] Warfarin Sodium (Jantoven) 5 mg PO SuTuWeThFrSa@1700 [facility] Zolpidem Tartrate (Ambien (Generic)) 5 mg PO QHS PRN PRN PRN Reason: INSOMNIA Medical Necessity - Tobacco Use Smoking Status: Never smoker Assessment/Plan 1. Intractable nausea, vomiting-suspect viral gastroenteritis. No diarrhea. CT of abdomen pelvis shows multiple bilateral renal cyst. Otherwise no acute abdominal process. UA unremarkable. Nausea/vomiting improved. Continue PRN Zofran. Diet as tolerated. Follow PT eval. 2. Hypokalemia-secondary #1. Replace per protocol. Potassium supplementation at discharge. 3. Acute on chronic vertigo-continue PRN meclizine regimen. PT/OT. 4. Paroxysmal atrial fibrillation-on amiodarone, metoprolol, Coumadin. 5. CAD with history of stent- Follows with Dr. Espinal. Continue aspirin, beta-che, Coumadin. 6. Hypertension-stable, continue amlodipine, benazepril, metoprolol, HCTZ. 7. Hyperlipidemia-allergy to statin. 8. Hypothyroidism-continue Synthroid regimen. 9. GERD- famotidine. 10. Chronic back pain with recent L5 compression fracture- Follows with Dr. Garcia. PRN pain regimen. PT/OT. DVT prophylaxis- coumadin This patient was seen by DERRICK Cuello under the supervision of Dr. Banks. <Phi Banks F - Last Filed: 12/19/19 16:33> - Physical Exam Vitals/I&O's: Vital Signs Temp Pulse Resp BP Pulse Ox 98.4 F 56 L 14 137/67 H 95 12/19/19 15:00 12/19/19 15:00 12/19/19 15:00 12/19/19 15:00 12/19/19 15:00 Oxygen Delivery Method Room Air Weight: 203 lb 1.6 oz Body Mass Index (BMI) 30.9 Intake and Output for Last 24 Hours 12/17/19 12/18/19 12/19/19 23:59 23:59 23:59 Intake Total 1201.25 / 1401.25 1107.5 / 1107.5 Output Total 350 / 700 1025 / 1025 Balance 851.25 / 701.25 82.5 / 82.5 Laboratory Results 12/18/19 13:13: Magnesium 2.0 12/18/19 13:13: PT 24.0 H, INR 2.2 12/19/19 06:42: WBC 8.3, RBC 4.89, Hgb 15.3, Hct 44.8, MCV 91.6, MCH 31.3, MCHC 34.2, RDW Std Deviation 43.8, RDW Coeff of Roger 13.0, Plt Count 253, MPV 9.0, Immature Gran % (Auto) 0.200, Neut % (Auto) 58.8, Lymph % (Auto) 27.6, Gray % (Auto) 10.4 H, Eos % (Auto) 2.5, Baso % (Auto) 0.5, Absolute Neuts (auto) 4.9, Absolute Lymphs (auto) 2.29, Nucleated RBC % 0 12/19/19 06:42: Sodium 141, Potassium 3.2 L, Chloride 110 H, Carbon Dioxide 24.0, Anion Gap 7, BUN 13, Creatinine 1.12, Estim Creat Clear Calc 46.65, Est GFR (MDRD) Af Amer 80, Est GFR (MDRD) Non-Af 66, BUN/Creatinine Ratio 11.6, Glucose 89, Calcium 8.8, Total Bilirubin 2.10 H, AST 40 H, ALT 41, Alkaline Phosphatase 125 H, Total Protein 7.8, Albumin 3.3, Globulin 4.5 H, Albumin/Globulin Ratio 0.7 L 12/19/19 06:42: PT 22.2 H, INR 2.0 Current Medications Acetaminophen (Tylenol) 650 mg PO Q6H PRN PRN PRN Reason: Pain Score 1-10/Temp > 100.7 F [facility]) [facility] Last Admin: 12/19/19 09:16 Dose: 100 mg Documented by: Amlodipine Besylate (Norvasc) 10 mg PO DAILY [facility] Last Admin: 12/19/19 09:16 Dose: 10 mg Documented by: Aspirin (Ecotrin) 81 mg PO QHS [facility] Last Admin: 12/18/19 21:30 Dose: 81 mg Documented by: Hydralazine HCl (Apresoline Iv) 10 mg IV Q4H PRN PRN PRN Reason: BLOOD PRESSURE Sodium Chloride () 1,000 mls @ 75 mls/hr IV .[id number] [facility] Stop: 12/19/19 18:52 Last Admin: 12/19/19 04:57 Dose: 75 mls/hr Documented by: Sodium Chloride () 250 mls @ 15 mls/hr IV .[id number] PRN PRN Reason: Saline Flush Last Infusion: 12/18/19 17:23 Dose: 0 mls/hr Documented by: Sodium Chloride () 250 mls @ 15 mls/hr IV .[id number] PRN PRN Reason: Additional IVPB Infusion Levothyroxine Sodium (Synthroid) 125 mcg PO DAILY@0600 [facility] Last Admin: 12/19/19 04:58 Dose: 125 mcg Documented by: Lisinopril (Zestril) 20 mg PO DAILY [facility] Last Admin: 12/19/19 09:16 Dose: 20 mg Documented by: Melatonin (Melatonin) 3 mg PO QHS [facility] Last Admin: 12/18/19 21:30 Dose: 3 mg Documented by: Metoprolol Tartrate (Lopressor (Beta Che)) 12.5 mg PO BID [facility] Last Admin: 12/19/19 09:16 Dose: 12.5 mg Documented by: Ondansetron HCl (Zofran) 4 mg IV Q8H PRN PRN PRN Reason: NAUSEA/VOMITING Last Admin: 12/19/19 03:22 Dose: 4 mg Documented by: Senna/Docusate Sodium (Senokot-S, Amy-Colace) 2 tablet PO BID PRN PRN PRN Reason: Constipation Sodium Chloride () 10 - 40 ml IV UD PRN PRN Reason: SALINE FLUSH Last Admin: 12/18/19 16:50 Dose: 10 ml Documented by: Warfarin Sodium (Jantoven) 2.5 mg PO Mo@1700 [facility] Warfarin Sodium (Jantoven) 5 mg PO SuTuWeThFrSa@1700 [facility] Zolpidem Tartrate (Ambien (Generic)) 5 mg PO QHS PRN PRN PRN Reason: INSOMNIA Addendum: Dr. Banks I personally examined the patient and reviewed the chart. I agree with the above. 84-year-old male comes in with nausea and vomiting. Does not have any diarrhea. Stool studies were finally able to be collected however he states that his nausea has improved today and he was able to tolerate with breakfast and lunch. It was discussed with him the possible going home today however he does not feel like he is strong enough yet and would like to stay 1 more day. Inpatient E&M: [id number] Subs Hosp L2
--- NOTE | 2019-12-19 13:04 | PHA.DC.COU ---
Pharmacy Services has performed discharge medication counseling for this patient. The patient was counseled on the following discharge medications and changes in medications for homegoing review. The Reason for Use, instructions for use, and potential side effects were reviewed for all new medications. The patient's questions regarding all of their medications were answered. The patient was able to verbally demonstrate an understanding of their discharge medications. The patient demonstrated some understanding but would benefit from further education and reinforcement. The patient was not able to adequately demonstrate understanding.
--- NOTE | 2019-12-19 13:06 | NURSING ---
tolerated lunch, ate 80%, but, feels pretty weak and prefers to stay one more night. aixa Sharma aware
[2019-12-19] MEDS: Aspirin E.C. 81 MG Tablet PO (20:38)
[2019-12-19] MEDS: MELATONIN 3 MG TABLET PO (20:38)
[2019-12-20] VITALS (11 sets, daily range): BP systolic 136–156; BP diastolic 68–83; PULSE 47–78; RESP 14–18; TEMP 36.6–37.1; O2SAT 94–99
[2019-12-20] MEDS: Levothyroxine 125 MCG Tablet PO (05:07)
[2019-12-20 06:27] LABS: Anion Gap 6 (5-15); BUN 18 mg/dL (7-18); BUN/Creat Ratio 16.8 RATIO (10-20); Calcium,Total 8.3 mg/dL (8.5-10.1); Chloride 112 mmol/L (98-107); Creatinine, Serum 1.07 mg/dL (0.70-1.30); EST Glomerular Filtration Rate 70 mL/min (>60); Est Glom Filt Rate - Afr Amer 84 mL/min (>60); Estimated Creatinine Clearance 48.83 ml/min; Glucose 86 mg/dL (74-106); Potassium 3.4 mmol/L (3.5-5.1); Sodium Level 142 mmol/L (136-145)
[2019-12-20] MEDS: 0.9% Saline Lock 10 ML Syringe IV (07:50)
[2019-12-20] MEDS: Ondansetron 4 MG/2 ML Vial IV (07:50)
[2019-12-20 09:12] LABS: Magnesium 1.8 mg/dL (1.6-2.6); Phosphorus 3.3 mg/dL (2.5-4.9)
--- NOTE | 2019-12-20 11:00 | CASEMGMT ---
[place] HELMS Face to Face with patient for initial transition planning/care coordination assessment. [place] HELMS introduced self and role at [facility]. Patient lying in bed, alert and oriented. Patient willing to participate in assessment and is able to answer all questions appropriately.? Care providers, pharmacy, and demographics verified. PCP: Joanna Specialists: Teddy Garcia Preferred Pharmacy: [facility] retail pharmacy for dc meds; [facility] for routine medications Insurance: MCR A/B, Cigna, [employer] Prescription Benefit:?Yes Living Will/HPOA: Yes, states his [place] is his HPOA or may be his daughter Hallie Watters. States his [id number] [place] to bring in copies of documents. LNOK: -[place] Living Arrangements: with . His son/[id number]-eri live next door and are able to assist if needed. Transportation: Pt drives self. 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 DME/HHC: Shower chair, primarily uses a cane but has a wheeled walker he uses occasionally. Grab bars in shower and next to commode. No previous SNF or HHC services. Preferences: Pt states he does not have a preference for [employer]. Has ordered other equipment from [employer] or purchased at [employer]. Disposition Plan: Home. Pt has previous outpatient appointment for PT at [facility]. Pt states he would like to proceed with outpt therapy at discharge and states he will be able to drive self to these appointments. States or other family members will be available to assist if needed. Pt denied any other concerns re: discharge needs. Kirit Cross RN CM
[2019-12-20] MEDS: Amiodarone 200 MG Tablet 100 MG PO (11:07)
[2019-12-20] MEDS: amLODIPine 10 MG Tablet PO (11:08)
[2019-12-20] MEDS: Metoprolol Tartrate 25 MG Tablet 12.5 MG PO ×2 (11:08→21:17)
[2019-12-20] MEDS: Lisinopril 20 MG Tablet PO (11:08)
--- NOTE | 2019-12-20 11:49 | PN_ITS ---
<Juan Carlos Hayden - Last Filed: 12/20/19 11:49> Reason for Visit: Nausea Subjective: Last diarrhea last evening, none today. Worsening nausea today accompanied by double vision. Improved now after getting IV antiemetics. Pt states he does not feel safe to go home with ongoing nausea. No abd pain, no fever/chills. Vitals/I&O's: Vital Signs Temp Pulse Resp BP Pulse Ox 98.7 F 54 L 16 144/75 H 96 12/20/19 10:40 12/20/19 11:08 12/20/19 10:40 12/20/19 10:40 12/20/19 10:40 Oxygen Delivery Method Room Air Weight: 203 lb 1.6 oz Body Mass Index (BMI) 30.9 Intake and Output for Last 24 Hours 12/18/19 12/19/19 12/20/19 23:59 23:59 23:59 Intake Total 1201.25 / 1401.25 2785.0 / 2785.0 Output Total 350 / 700 1300 / 1300 Balance 851.25 / 701.25 1485.0 / 1485.0 General: Alert, Oriented x3, Cooperative HEENT: Atraumatic, PERRLA, EOMI, Normocephalic Neck: Supple, No JVD, Negative Carotid Bruits Lungs: Clear to auscultation, Normal air movement Cardiovascular: Regular rate, No murmurs Abdomen: Bowel Sounds Present, Soft, Non Tender Extremities: No edema, Capillary Refill Less than 3 Seconds Skin: No rashes, No breakdown Musculoskeletal: No Tenderness to Palpation of Joints or Extremities Neurological: Cranial nerves II-XII grossly intact Psych/Mental Status: Normal Affect, Appropriate, Alert and oriented to time, place, person, mood and affect Microbiology Past 72 Hours 12/19/19 15:47 Stool Enteric Bacteriology - Final 12/19/19 15:47 Stool C. difficile DNA Amplification - Final 12/19/19 15:47 Stool Stool Lactoferrin - Final Laboratory Results 12/20/19 05:47: Sodium 142, Potassium 3.4 L, Chloride 112 H, Carbon Dioxide 24.0, Anion Gap 6, BUN 18, Creatinine 1.07, Estim Creat Clear Calc 48.83, Est GFR (MDRD) Af Amer 84, Est GFR (MDRD) Non-Af 70, BUN/Creatinine Ratio 16.8, Glucose 86, Calcium 8.3 L 12/20/19 05:47: Phosphorus 3.3, Magnesium 1.8 Current Medications Acetaminophen (Tylenol) 650 mg PO Q6H PRN PRN PRN Reason: Pain Score 1-10/Temp > 100.7 F [facility] Last Admin: 12/20/19 11:07 Dose: 100 mg Documented by: Amlodipine Besylate (Norvasc) 10 mg PO DAILY [facility] Last Admin: 12/20/19 11:08 Dose: 10 mg Documented by: Aspirin (Ecotrin) 81 mg PO QHS [facility] Last Admin: 12/19/19 20:38 Dose: 81 mg Documented by: Hydralazine HCl (Apresoline Iv) 10 mg IV Q4H PRN PRN PRN Reason: BLOOD PRESSURE Sodium Chloride () 250 mls @ 15 mls/hr IV .[id number] PRN PRN Reason: Saline Flush Last Infusion: 12/18/19 17:23 Dose: 0 mls/hr Documented by: Sodium Chloride () 250 mls @ 15 mls/hr IV .[id number] PRN PRN Reason: Additional IVPB Infusion Levothyroxine Sodium (Synthroid) 125 mcg PO DAILY@0600 [facility] Last Admin: 12/20/19 05:07 Dose: 125 mcg Documented by: Lisinopril (Zestril) 20 mg PO DAILY [facility] Last Admin: 12/20/19 11:08 Dose: 20 mg Documented by: Melatonin (Melatonin) 3 mg PO QHS [facility] Last Admin: 12/19/19 20:38 Dose: 3 mg Documented by: Metoprolol Tartrate (Lopressor (Beta Che)) 12.5 mg PO BID [facility] Last Admin: 12/20/19 11:08 Dose: 12.5 mg Documented by: Ondansetron HCl (Zofran) 4 mg IV Q8H PRN PRN PRN Reason: NAUSEA/VOMITING Last Admin: 12/20/19 07:50 Dose: 4 mg Documented by: Senna/Docusate Sodium (Senokot-S, Amy-Colace) 2 tablet PO BID PRN PRN PRN Reason: Constipation Sodium Chloride () 10 - 40 ml IV UD PRN PRN Reason: SALINE FLUSH Last Admin: 12/20/19 07:50 Dose: 10 ml Documented by: Warfarin Sodium (Jantoven) 2.5 mg PO Mo@1700 MIR Warfarin Sodium (Jantoven) 5 mg PO SuTuWeThFrSa@1700 MIR Last Admin: 12/19/19 18:03 Dose: 5 mg Documented by: Zolpidem Tartrate (Ambien (Generic)) 5 mg PO QHS PRN PRN PRN Reason: INSOMNIA STROKE Vital Signs/Narrative: Vital Signs Temp Pulse Resp BP Pulse Ox 12/20/19 11:08 54 L 12/20/19 10:40 98.7 F 54 L 16 144/75 H 96 12/20/19 09:13 96 Medical Necessity - Tobacco Use Smoking Status: Never smoker Assessment/Plan 1. Acute viral gastroenteritis - ongoing nausea. continue symptom management and electrolyte repletion. diarrhea resolved. Stool lactoferrin positive, C. difficile and enteric panel negative. 2. Vertigo - chronic. continue meclizine. complicating ongoing nausea 3. pAfib -her rate with mild bradycardia, continue amiodarone, metoprolol, warfarin 4. CAD - prior stent. Continue aspirin, lisinopril, metoprolol. Patient is statin allergic 5. Chronic back pain - f/u Dr. sheets 6. Hypothyroidism-continue Synthroid DVT ppx: coumadin DC planning: home when symptoms improved This patient was seen by Juan Carlos Hayden PA-C under the supervision of Doctor Darren. <Phi Banks F - Last Filed: 12/20/19 16:22> Vitals/I&O's: Vital Signs Temp Pulse Resp BP Pulse Ox 97.8 F 78 14 152/78 H 99 12/20/19 13:54 12/20/19 13:54 12/20/19 13:54 12/20/19 13:54 12/20/19 13:54 Oxygen Delivery Method Room Air Weight: 203 lb 1.614 oz Body Mass Index (BMI) 30.9 Intake and Output for Last 24 Hours 12/18/19 12/19/19 12/20/19 23:59 23:59 23:59 Intake Total 1201.25 / 1401.25 2785.0 / 2785.0 Output Total 350 / 700 1300 / 1300 Balance 851.25 / 701.25 1485.0 / 1485.0 Microbiology Past 72 Hours 12/19/19 15:47 Stool Enteric Bacteriology - Final 12/19/19 15:47 Stool C. difficile DNA Amplification - Final 12/19/19 15:47 Stool Stool Lactoferrin - Final Laboratory Results 12/20/19 05:47: Sodium 142, Potassium 3.4 L, Chloride 112 H, Carbon Dioxide 24.0, Anion Gap 6, BUN 18, Creatinine 1.07, Estim Creat Clear Calc 48.83, Est GFR (MDRD) Af Amer 84, Est GFR (MDRD) Non-Af 70, BUN/Creatinine Ratio 16.8, Glucose 86, Calcium 8.3 L 12/20/19 05:47: Phosphorus 3.3, Magnesium 1.8 Current Medications Acetaminophen (Tylenol) 650 mg PO Q6H PRN PRN PRN Reason: Pain Score 1-10/Temp > 100.7 F [facility] Last Admin: 12/20/19 11:07 Dose: 100 mg Documented by: Amlodipine Besylate (Norvasc) 10 mg PO DAILY [facility] Last Admin: 12/20/19 11:08 Dose: 10 mg Documented by: Aspirin (Ecotrin) 81 mg PO QHS [facility] Last Admin: 12/19/19 20:38 Dose: 81 mg Documented by: Hydralazine HCl (Apresoline Iv) 10 mg IV Q4H PRN PRN PRN Reason: BLOOD PRESSURE Sodium Chloride () 250 mls @ 15 mls/hr IV .[id number] PRN PRN Reason: Saline Flush Last Infusion: 12/18/19 17:23 Dose: 0 mls/hr Documented by: Sodium Chloride () 250 mls @ 15 mls/hr IV .[id number] PRN PRN Reason: Additional IVPB Infusion Levothyroxine Sodium (Synthroid) 125 mcg PO DAILY@0600 [facility] Last Admin: 12/20/19 05:07 Dose: 125 mcg Documented by: Lisinopril (Zestril) 20 mg PO DAILY [facility] Last Admin: 12/20/19 11:08 Dose: 20 mg Documented by: Melatonin (Melatonin) 3 mg PO QHS [facility] Last Admin: 12/19/19 20:38 Dose: 3 mg Documented by: Metoprolol Tartrate (Lopressor (Beta Che)) 12.5 mg PO BID [facility] Last Admin: 12/20/19 11:08 Dose: 12.5 mg Documented by: Ondansetron HCl (Zofran) 4 mg IV Q8H PRN PRN PRN Reason: NAUSEA/VOMITING Last Admin: 12/20/19 07:50 Dose: 4 mg Documented by: Senna/Docusate Sodium (Senokot-S, Amy-Colace) 2 tablet PO BID PRN PRN PRN Reason: Constipation Sodium Chloride () 10 - 40 ml IV UD PRN PRN Reason: SALINE FLUSH Last Admin: 12/20/19 07:50 Dose: 10 ml Documented by: Warfarin Sodium (Jantoven) 2.5 mg PO Mo@1700 MIR Warfarin Sodium (Jantoven) 5 mg PO SuTuWeThFrSa@1700 MIR Last Admin: 12/19/19 18:03 Dose: 5 mg Documented by: Zolpidem Tartrate (Ambien (Generic)) 5 mg PO QHS PRN PRN PRN Reason: INSOMNIA STROKE Vital Signs/Narrative: Vital Signs Temp Pulse Resp BP Pulse Ox 12/20/19 13:54 97.8 F 78 14 152/78 H 99 12/20/19 12:30 68 Addendum: Dr. Banks I personally examined the patient and reviewed the chart. I agree with the above. 84-year-old male comes in with nausea and vomiting. Does not have any diarrhea. Stool studies were finally able to be collected however he states that his nausea has improved today and he was able to tolerate with breakfast and lunch. It was discussed with him the possible going home today however he does not feel like he is strong enough yet and would like to stay 1 more day. 12/20/2019: His nausea recurred today, stool studies are have all been negative other than the stool lactoferrin indicating a viral gastroenteritis. We will continue with symptomatic treatment. He is tolerating a diet though he does not eat a whole lot. He was complaining of blurry vision today however he does have blurry vision at baseline in his right eye and his left eye had LASEK about a month ago so he has been wearing a patch because of the blurry vision which has not caused him to have double vision. 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 Inpatient E&M: 51077 Subs Hosp L2
[2019-12-20] MEDS: Magnesium Oxide 400 MG Tablet 800 MG PO (13:51)
[2019-12-20] MEDS: MELATONIN 3 MG TABLET PO (21:17)
[2019-12-20] MEDS: Aspirin E.C. 81 MG Tablet PO (21:17)
[2019-12-21] VITALS (8 sets, daily range): BP systolic 117–152; BP diastolic 85–113; PULSE 53–102; RESP 16–20; TEMP 36.7–36.8; O2SAT 96–98
[2019-12-21] MEDS: Levothyroxine 125 MCG Tablet PO (06:03)
[2019-12-21 07:01] LABS: International Normalized Ratio 2.2; Prothrombin Time (Protime)PT. 23.9 SECONDS (11.7-14.9)
[2019-12-21 07:13] LABS: Anion Gap 5 (5-15); BUN 13 mg/dL (7-18); Calcium,Total 8.9 mg/dL (8.5-10.1); Chloride 110 mmol/L (98-107); EST Glomerular Filtration Rate 75 mL/min (>60); Est Glom Filt Rate - Afr Amer 91 mL/min (>60); Estimated Creatinine Clearance 52.25 ml/min; Glucose 87 mg/dL (74-106); Potassium 3.6 mmol/L (3.5-5.1); Sodium Level 141 mmol/L (136-145)
[2019-12-21] MEDS: Metoprolol Tartrate 25 MG Tablet 12.5 MG PO (10:09)
[2019-12-21] MEDS: Amiodarone 200 MG Tablet 100 MG PO (10:10)
[2019-12-21] MEDS: Lisinopril 20 MG Tablet PO (10:10)
[2019-12-21] MEDS: amLODIPine 10 MG Tablet PO (10:11)
[2019-12-21] MEDS: Meclizine HCl 25 MG Tablet PO (12:02)
--- NOTE | 2019-12-21 12:13 | DS.PCM_ITS ---
<Juan Carlos Hayden - Last Filed: 12/21/19 12:13> Discharge Date and Diagnosis Date of Admission: 12/18/19 Date of Discharge: 12/21/19 - Primary Discharge Diagnosis Acute Problems: Acute viral gastroenteritis Diplopia due to strabismus due to patient covering eye with poor eyesight - Secondary Discharge Diagnosis Chronic Problems: Chronic Problems (Last Updated 12/18/19 @ 15:[address] 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 There is a stone in the left kidney measures 3 mm without hydronephrosis. There is a recent compression fracture of L5 unchanged since the MRI from 12/07/2019. Operations: None Procedures: None Summary of Care Provided: Hospital course: The patient is a 84 year old M with pmhx as above who presented to the ER with c/o nausea, vomiting, and diarrhea. He came to the emergency room and was found to have hypokalemia which was felt to be secondary to #1. He had worsening of dizziness at home and was felt to have acute on chronic vertigo secondary to 1 as well. He was felt to have acute viral gastroenteritis leading to his nausea, vomiting, diarrhea. CT of the abdomen demonstrated multiple bilateral renal cysts and a compression fracture of L5 unchanged from prior MRI. He was admitted and placed in the medical surgical floor, he was given supportive care with antiemetics, IV fluids, and electrolyte replacement. He improved gradually with supportive care. Stool lactoferrin was positive, C. difficile was negative, enteric bacteria panel was negative. He was felt to have an acute viral gastroenteritis. The patient complained of diplopia while here. He had recently had laser surgery to correct vision of a prior cataract surgery in his left eye. His vision was excellent in his left eye. He complained of ongoing vision in the right eye and was covering his right eye for extensive periods of time. When he would uncover his right eye he would get double vision. On exam he appeared to have strabismus. We advised him to follow-up with his eye doctor this week, and to stop covering the eye with the poor vision as it may exacerbate the strabismus-he appears to have no issues with his left eye which was the eye that had surgery. On the day of discharge all symptoms were resolved. He will also need to follow-up with his PCP in 1 to 2 weeks. He was discharged home in stable condition. This patient was seen by Juan Carlos Hayden PA-C under the supervision of Doctor Darren. [] - Physical Exam Vitals/I&O's: Vital Signs Temp Pulse Resp BP Pulse Ox 98.2 F 102 H 16 117/96 H 97 12/21/19 12:06 12/21/19 12:06 12/21/19 12:06 12/21/19 12:06 12/21/19 12:06 Oxygen Delivery Method Room Air Weight: 203 lb 1.614 oz Body Mass Index (BMI) 30.9 Intake and Output for Last 24 Hours 12/19/19 12/20/19 12/21/19 23:59 23:59 23:59 Intake Total 2785.0 / 2785.0 400 / 400 400 / 400 Output Total 1300 / 1300 850 / 850 Balance 1485.0 / 1485.0 400 / 400 -450 / -450 General: Alert, Oriented x3, Cooperative HEENT: Atraumatic, PERRLA, EOMI, Normocephalic Neck: Supple, No JVD, Negative Carotid Bruits Lungs: Clear to auscultation, Normal air movement Cardiovascular: Regular rate, No murmurs Abdomen: Bowel Sounds Present, Soft, Non Tender Extremities: No edema, Capillary Refill Less than 3 Seconds Skin: No rashes, No breakdown Musculoskeletal: No Tenderness to Palpation of Joints or Extremities Neurological: Cranial nerves II-XII grossly intact Psych/Mental Status: Normal Affect, Appropriate, Alert and oriented to time, place, person, mood and affect Microbiology Past 72 Hours 12/19/19 15:47 Stool Enteric Bacteriology - Final 12/19/19 15:47 Stool C. difficile DNA Amplification - Final 12/19/19 15:47 Stool Stool Lactoferrin - Final Laboratory Results 12/21/19 06:32: PT 23.9 H, INR 2.2 12/21/19 06:32: Sodium 141, Potassium 3.6, Chloride 110 H, Carbon Dioxide 26.0, Anion Gap 5, BUN 13, Creatinine 1.00, Estim Creat Clear Calc 52.25, Est GFR (MDRD) Af Amer 91, Est GFR (MDRD) Non-Af 75, BUN/Creatinine Ratio 13.0, Glucose 87, Calcium 8.9 Current Medications Acetaminophen (Tylenol) 650 mg PO Q6H PRN PRN PRN Reason: Pain Score 1-10/Temp > 100.7 F Amiodarone HCl (Cordarone) 100 mg PO DAILYCM [facility] Last Admin: 12/21/19 10:10 Dose: 100 mg Documented by: Amlodipine Besylate (Norvasc) 10 mg PO DAILY [facility] Last Admin: 12/21/19 10:11 Dose: 10 mg Documented by: Aspirin (Ecotrin) 81 mg PO QHS [facility] Last Admin: 12/20/19 21:17 Dose: 81 mg Documented by: Hydralazine HCl (Apresoline Iv) 10 mg IV Q4H PRN PRN PRN Reason: BLOOD PRESSURE Sodium Chloride () 250 mls @ 15 mls/hr IV .[id number] PRN PRN Reason: Saline Flush Last Infusion: 12/18/19 17:23 Dose: 0 mls/hr Documented by: Sodium Chloride () 250 mls @ 15 mls/hr IV .[id number] PRN PRN Reason: Additional IVPB Infusion Levothyroxine Sodium (Synthroid) 125 mcg PO DAILY@0600 [facility] Last Admin: 12/21/19 06:03 Dose: 125 mcg Documented by: Lisinopril (Zestril) 20 mg PO DAILY [facility] Last Admin: 12/21/19 10:10 Dose: 20 mg Documented by: Melatonin (Melatonin) 3 mg PO QHS [facility] Last Admin: 12/20/19 21:17 Dose: 3 mg Documented by: Metoprolol Tartrate (Lopressor (Beta Che)) 12.5 mg PO BID [facility] Last Admin: 12/21/19 10:09 Dose: 12.5 mg Documented by: Ondansetron HCl (Zofran) 4 mg IV Q8H PRN PRN PRN Reason: NAUSEA/VOMITING Last Admin: 12/20/19 07:50 Dose: 4 mg Documented by: Senna/Docusate Sodium (Senokot-S, Amy-Colace) 2 tablet PO BID PRN PRN PRN Reason: Constipation Sodium Chloride () 10 - 40 ml IV UD PRN PRN Reason: SALINE FLUSH Last Admin: 12/20/19 07:50 Dose: 10 ml Documented by: Warfarin Sodium (Jantoven) 2.5 mg PO Mo@1700 MIR Warfarin Sodium (Jantoven) 5 mg PO SuTuWeThFrSa@1700 MIR Last Admin: 12/20/19 17:21 Dose: 5 mg Documented by: Zolpidem Tartrate (Ambien (Generic)) 5 mg PO QHS PRN PRN PRN Reason: INSOMNIA Discharge Diet: Light diet - advance as tolerated Discharge Activity: Return to Normal Activity Call your doctor if you observe: Shortness of breath, Dizziness, Fainting spells, Chest pain Home Medications: Medications to take at Discharge Glucosamine/MSM/Chondroitin A [Glucosamine Chondroit MSM Tab] 1 ea PO DAILY 06/11/13 Levothyroxine [Synthroid] 125 mcg PO DAILY 06/11/13 Multivitamins,Therapeutic [Multivitamin] 1 tab PO DAILY 06/11/13 Lakeside-3 Fatty Acids/Fish Oil [[place] 3 1,000 mg Softgel] 1,000 mg PO DAILY 06/11/13 Aspirin E.C. [Ecotrin] 81 mg PO QHS 02/14/14 Nitroglycerin (INPATIENT USE) [Nitrostat] 0.4 mg SUBLINGUAL Q5M PRN 07/12/14 amiodarone 200 mg tablet 100 mg PO DAILY #45 tab 02/12/19 amlodipine 10 mg tablet 10 mg PO DAILY #90 tab 02/12/19 benazepril 20 mg tablet 20 mg PO DAILY #90 tab 02/12/19 hydrochlorothiazide 25 mg tablet 25 mg PO DAILY #90 tab 02/12/19 metoprolol tartrate 25 mg tablet 12.5 mg PO BID tab 10/30/19 Meclizine HCl [Antivert] 25 mg PO 4X/DAY PRN PRN #20 tab 12/18/19 Potassium Chloride 20 meq PO DAILY #10 tab.er.prt 12/18/19 Warfarin Sodium 5 mg PO [id number] 12/18/19 Warfarin [Coumadin] 2.5 mg PO MO 12/18/19 Ondansetron HCl [Zofran] 4 mg PO Q8H PRN #30 tab 12/19/19 Following Prescriptions Were Given to Patient: Meclizine HCl [Antivert] 25 mg PO 4X/DAY PRN PRN #20 tab PRN Reason: Dizziness Transmission Status: Received by [facility] [id number] Potassium Chloride 20 meq PO DAILY #10 tab.er.prt Transmission Status: Received by [id number] Ondansetron HCl [Zofran] 4 mg PO Q8H PRN #30 tab PRN Reason: Nausea Transmission Status: Received by [facility] Primary Care Physician: Parish Marshall DO [Primary Care Provider] - Please follow up with your Primary Care Physician in: 3-5 days Patient Instructions: ED Diet for Vomiting or Diarrhea Adult Disposition: Home Minutes spent on discharge:: 35 Patient Condition:: Stable Medical Necessity - Tobacco Use Smoking Status: Never smoker Meaningful Use Info Meaningful Use Diagnoses (Choose all that apply): None applicable <Phi Banks F - Last Filed: 12/21/19 14:36> Discharge Date and Diagnosis - Secondary Discharge Diagnosis Chronic Problems: Chronic Problems (Last Updated 12/18/19 @ 15:[address] 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) Hospital Course and Treatment Summary of Care Provided: The patient is a 84 year old M [] - Physical Exam Vitals/I&O's: Vital Signs Temp Pulse Resp BP Pulse Ox 98.2 F 102 H 16 117/96 H 97 12/21/19 12:06 12/21/19 12:06 12/21/19 12:06 12/21/19 12:06 12/21/19 12:06 Oxygen Delivery Method Room Air Weight: 203 lb 1.614 oz Body Mass Index (BMI) 30.9 Intake and Output for Last 24 Hours 12/19/19 12/20/19 12/21/19 23:59 23:59 23:59 Intake Total 2785.0 / 2785.0 400 / 400 400 / 400 Output Total 1300 / 1300 850 / 850 Balance 1485.0 / 1485.0 400 / 400 -450 / -450 Microbiology Past 72 Hours 12/19/19 15:47 Stool Enteric Bacteriology - Final 12/19/19 15:47 Stool C. difficile DNA Amplification - Final 12/19/19 15:47 Stool Stool Lactoferrin - Final Laboratory Results 12/21/19 06:32: PT 23.9 H, INR 2.2 12/21/19 06:32: Sodium 141, Potassium 3.6, Chloride 110 H, Carbon Dioxide 26.0, Anion Gap 5, BUN 13, Creatinine 1.00, Estim Creat Clear Calc 52.25, Est GFR (MDRD) Af Amer 91, Est GFR (MDRD) Non-Af 75, BUN/Creatinine Ratio 13.0, Glucose 87, Calcium 8.9 Addendum: Dr. Banks I personally examined the patient and reviewed the chart. I agree with the above. 84-year-old male comes in with nausea and vomiting. Does not have any diarrhea. Stool studies were finally able to be collected however he states that his nausea has improved today and he was able to tolerate with breakfast and lunch. It was discussed with him the possible going home today however he does not feel like he is strong enough yet and would like to stay 1 more day. 12/20/2019: His nausea recurred today, stool studies are have all been negative other than the stool lactoferrin indicating a viral gastroenteritis. We will continue with symptomatic treatment. He is tolerating a diet though he does not eat a whole lot. He was complaining of blurry vision today however he does have blurry vision at baseline in his right eye and his left eye had LASEK about a month ago so he has been wearing a patch because of the blurry vision which has not caused him to have double vision. 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 12/21/2019: Feels better today, he was able to today up and wash his face did not lose balance. His nausea is improved and he is tolerating both breakfast and lunch. He does not have any more diarrhea and his stool studies came back negative other than a stool lactoferrin which was positive with white blood cells. This indicates a viral etiology of any gastroenteritis he may have had. Part of his issue is he has chronic blurriness in his right eye and his eyes do not accommodate very well either a close or far distances and therefore he gets double vision. I expressed to him that he needs to follow-up with his test engine evaluator for this issue as an outpatient. I discussed the plan for discharge today and he expressed understanding of the risks and benefits of going home. Inpatient E&M: [id number] Disch Hosp
== END 2019-12-21 13:59 | disposition home or self-care (01) | DRG 392 ==
LOC: ED 15:11 → MS3 15:57
PROVIDERS: Internal Medicine Cardiovascular Disease; Nurse Practitioner Family; Physician Assistant; Admitting Provider Hospitalist; Emergency Provider Emergency Medicine; PCP Family Medicine; Visit Provider Family Medicine
DX: A08.4 Viral intestinal infection, unspecified (principal); M48.56XA Collapsed vertebra, not elsewhere classified, lumbar region, initial encounter for fracture; I48.20 Chronic atrial fibrillation, unspecified; C49.9 Malignant neoplasm of connective and soft tissue, unspecified; N28.1 Cyst of kidney, acquired; R42 Dizziness and giddiness; I10 Essential (primary) hypertension; I48.0 Paroxysmal atrial fibrillation; H50.9 Unspecified strabismus; H53.2 Diplopia; I25.10 Atherosclerotic heart disease of native coronary artery without angina pectoris; E78.5 Hyperlipidemia, unspecified; I73.9 Peripheral vascular disease, unspecified; E03.9 Hypothyroidism, unspecified; E87.6 Hypokalemia; K21.9 Gastro-esophageal reflux disease without esophagitis; Z79.01 Long term (current) use of anticoagulants; Z95.5 Presence of coronary angioplasty implant and graft; Z88.8 Allergy status to other drugs, medicaments and biological substances; I49.3 Ventricular premature depolarization; E03.2 Hypothyroidism due to medicaments and other exogenous substances; Z66 Do not resuscitate; M54.9 Dorsalgia, unspecified; G89.29 Other chronic pain; E66.9 Obesity, unspecified; Z68.34 Body mass index [BMI] 34.0-34.9, adult; Z79.82 Long term (current) use of aspirin; Z79.890 Hormone replacement therapy; Z82.49 Family history of ischemic heart disease and other diseases of the circulatory system; Z90.49 Acquired absence of other specified parts of digestive tract; Z96.652 Presence of left artificial knee joint; N20.0 Calculus of kidney; Z98.42 Cataract extraction status, left eye
CPT/HCPCS: 36415; 74176; 80048; 80053; 80076; 81001; 83630; 83690; 83735; 84100; 85025; 85610; 87493; 87506; 97110; 97116; 97162; 97166; 97530; 99251; 99285; J7030; J7050; A4216; G0463; J2405

== ENCOUNTER 2020-01-10 13:52 | Outpatient (RCR) | payer MEDICARE, OTHER, SELFPAY ==
[2019-10-30 10:08] VITALS: BMI 32.8
[2019-12-18 16:13] VITALS: BMI 30.9
== END 2020-01-10 18:00 | disposition home or self-care (01) ==
LOC: MTLAB 13:52
PROVIDERS: Family Provider Family Medicine; PCP Family Medicine; Referring Provider Internal Medicine Cardiovascular Disease; Visit Provider Internal Medicine Cardiovascular Disease
DX: I48.0 Paroxysmal atrial fibrillation (principal); Z79.01 Long term (current) use of anticoagulants
CPT/HCPCS: 36416; 85610

== ENCOUNTER 2020-01-30 11:00 | Outpatient (RCR) | payer MEDICARE, OTHER, SELFPAY ==
[2019-10-30 10:08] VITALS: BMI 32.8
[2019-12-18 16:13] VITALS: BMI 30.9
--- NOTE | 2020-01-22 09:57 | HP.PTEVAL_ITS ---
Patient's Visit Information ALVARO ZAMUDIO is a 84 year old M referred to Physical Therapy by Dr. Parish Marshall DO with a diagnosis of BACK PAIN. Date of Evaluation: 01/22/20 Physical Therapist: Brenda Lancaster PT, Cert MDT - Visit Plan Frequency: 2-3x /Week Duration: 4-6 Weeks Plan: AQUATIC THERAPY FOR PAIN RELIEF, POSTURE CORRECTION/STRENGTHENING, INSTRUCTION IN APPROPRIATE BODY MECHANICS AND ACTIVITY MODIFICATIONS. DLS STARTING WITH A NEUTRAL SPINE PROGRESSING ROM TOLERATED. SAM LE ROM, STRETCHING AND STRENGTHENING. HEP INSTRUCTION. - Subjective Work/Leisure: RETIRED. Present symptoms: LOW BACK PAIN, SAM HIP PAIN AND PAIN DOWN BOTH LEGS. SOMETIMES IT HURTS UP BACK TOO. PATIENT DENIES SAM UE AND LE NUMBNESS AND TINGLING. Present since: YEARS. Pain Scale: WORST 8/10, LEAST 0/10. Currently: 10. Commenced as a result of: PICKING UP A TRAILER - VERTEBRAE FX - T7? Worse: STRETCHING UP TALL, PUTTING CLOTHES ON, WALKING, STANDING, BENDING. Better: SITTING IN RECLINER, LYING. Disturbed sleep: NO. Previous history/Previous treatment: FX'D BACK ABOUT 5 YEARS AGO, WITHIN THE LAST YEAR PATIENT REPORTS HE INJURED THE DISCS IN HIS LOW BACK ROLLING CONCRETE PIECES AROUND. VERTEBRAL PLASTY 5 YEARS AGO. H/O PAIN MGMT WITH DR. HAJI WITH MOST RECENT JOYCELYN ABOUT A YEAR AGO - DID NOT SEEM TO HELP. PT AT [facility] - PATIENT REPORTS IT DID NOT GO WELL AND IT MADE HIM WORSE. STATES HE QUIT THERAPY. SAW A BACK SURGEON ABOUT 4 YEARS AGO AND WAS TOLD HE COULDN'T DO ANYTHING FOR HIM OTHER THAN GIVE HIM PAIN MEDICATION - DR. EDDY. Coughing/sneezing/straining: POSITIVE. Gait: USES CANE BECAUSE IT TAKES SOME OF THE PRESSURE OFF HIS HIPS AND BACK. TIME AND DISTANCE LIMITED. OTHER: PATIENT DENIES LOSS OF BOWEL OR BLADDER CONTROL. Unexplained weight loss: NO. Imaging: SEVERAL MRI'S. DR. MARSHALL'S NOTE STATES MILD COMPRESSION FX AT L5 AND BULGING DISKS OF HIS LOWER SPINE THAT ARE CREATING SOME SPINAL STENOSIS AND NERVE IMPINGEMENT. PMH/Recent major surgery: LEFT FEMUR FX. L TKR. SEE BELOW. - Objective Sitting/Standing Posture: POOR. INCREASED TRUNK FLEXION. LEFT LATERAL SHIFT. Active Correction of posture: WORSE. Other Observations: INDEP GAIT INTO PT WITH STRAIGHT CANE LIMPING ON LLE. STATES LEFT HIP X-RAY IS SO BAD THEY SAID THEY COULD NOT DO ANYTHING ABOUT IT. INCREASED TRUNK FLEXION. INDEP TRANSFER SIT TO STAND WITHOUT UE ASSIST. LLE SHORTER THAN RIGHT. Motor deficit: SAM LE'S GROSSLY 4-5 WITH MMT'ING. HIPS 4-/5. Sensory deficit: SAM LE LIGHT TOUCH SENSATION APPEARS INTACT AND SYMMETRICAL - FEET NT. ROM deficit: TIGHT SAM HIP FLEXORS, HS'S AND GASTROC SOLEUS COMPLEX'S. Reflexes: NT. Dural Signs: NEGATIVE SAM LE'S. Lumbar mvmt loss: flex - MIN TO MOD. ext - TIM. R SG - TIM. L SG - MOD. Core strength: POOR. Palpation: NO ACUTE THORACIC, LUMBAR, SACRAL OR HIP TENDERNESS. OTHER: POOR STANDING AND WALKING ENDURANCE. TREATMENT: NEUROMUSCULAR REEDUCATION - RETRAINING OF MVMT AND POSTURE FOR SITTING, LYING AND STANDING ACTIVITIES. - Goals Goal 1:: DECREASE C/O LOW BACK AND SAM LE PAIN Goal Time Frame: 4-6 Weeks Goal 2:: IMPROVE PERSONAL CARE, LIFTING, WALKING, SITTING, STANDING, SOCIAL LIFE, TRAVEL ADN HOMEMAKING FUNCTION. Goal Time Frame: 4-6 Weeks Goal 3:: INSTRUCT IN PROPHYLAXIS Goal Time Frame: 4-6 Weeks - Anticipated Interventions Patient/Client Instruction: Educate patient on: Condition, Plan of Care, Risk Factors, Benefits of Fitness Program For the Purpose of:: To improve self management Therapeutic Exercise to Include: Strength training, Body mechanics, Postural training, Neuromotor development, In an aquatic setting, Dynamic Lumbar Stabilization For the Purpose of:: To decrease pain, To increase ROM, To improve muscle performance and motor function, To increase tolerance to activity/condition/position, To improve ability of physical actions for home/community/work/leisure Thank you for the opportunity to evaluate your patient. For Medicare and Medicare HMO plans, please review the plan of care and approve it. It will need to be FAXED BACK to us at [phone] for Medicare purposes. For Medicare only, by signing this I certify the plan of care. Please let me know if there are questions or concerns regarding this plan of care. Physician Signature: Date:
--- NOTE | 2020-03-03 17:15 | HP.PT.NRP ---
ALVARO ZAMUDIO was seen in my office for initial evaluation on 01/22/20. The following Plan of Care was established for this patient: Initial Frequency: 2-3x /Week Initial Duration: 4-6 Weeks Patient/Client Instruction: Educate patient on: Condition, Plan of Care, Risk Factors, Benefits of Fitness Program For the Purpose of:: To improve self management Therapeutic Exercise to Include: Strength training, Body mechanics, Postural training, Neuromotor development, In an aquatic setting, Dynamic Lumbar Stabilization For the Purpose of:: To decrease pain, To increase ROM, To improve muscle performance and motor function, To increase tolerance to activity/condition/position, To improve ability of physical actions for home/community/work/leisure This patient was last seen in our office 01/30/20. Pertinent comments regarding their Physical therapy will appear below: This patient has not returned to Physical Therapy and is appropriate to return to MD for further follow-up as needed. At this point I will be discontinuing this patient from physical therapy. I would be happy to see this patient again in the future if found appropriate by the physician. Thank you! Brenda Lancaster, PT, Cert MDT
== END 2020-01-30 19:00 | disposition home or self-care (01) ==
LOC: PT 11:00
PROVIDERS: PCP Family Medicine; Referring Provider Family Medicine; Visit Provider Family Medicine
DX: M48.56XD Collapsed vertebra, not elsewhere classified, lumbar region, subsequent encounter for fracture with routine healing (principal); M48.061 Spinal stenosis, lumbar region without neurogenic claudication
CPT/HCPCS: 97112; 97113; 97162

== ENCOUNTER 2020-01-31 10:41 | Emergency (ER) | payer MEDICARE, OTHER, SELFPAY ==
[2019-12-18 16:13] VITALS: BMI 30.9
[2020-01-31] VITALS (8 sets, daily range): BP systolic 133–182; BP diastolic 75–112; PULSE 50–101; RESP 13–18; TEMP 36.7; O2SAT 94–99; BMI 32.1
--- NOTE | 2020-01-31 10:59 | EKG12_ITS ---
Test Reason : CP Blood Pressure : / mmHG Vent. Rate : 097 BPM Atrial Rate : 234 BPM P-R Int : 000 ms QRS Dur : 126 ms QT Int : 394 ms P-R-T Axes : 000 -53 045 degrees QTc Int : 500 ms Atrial flutter with variable A-V block Left axis deviation Non-specific intra-ventricular conduction block Inferior infarct , age undetermined Abnormal ECG Confirmed by BEN CARDENAS, ELDA ([id number]), development editor CONSTANCE SCHAEFER ([id number]) on 02/04/2020 2:36:40 PM Referred By: KIMBERLY Confirmed By:MELISSA CONTRERAS MD
[2020-01-31 11:08] LABS: Absolute Lymphocyte Count 1.55 X10^3/uL (0.83-4.51); Absolute Neutrophil Count 4.5 X10^3/uL (2.0-7.7); Basophil# 0.04 X10^3/uL; Basophil% 0.6 % (0-1); Eosinophil# 0.27 X10^3/uL; Eosinophils% 3.9 % (0-5); Hemoglobin 15.5 g/dL (13.0-16.5); Lymphocyte # 1.55 X10^3/ul (4.0); Lymphocyte % 22.2 % (19-41); Mean Corp Hgb Conc 33.7 g/dL (32-36); Mean Corpuscular Hgb 31.2 pg (27.0-32.0); Mean Corpuscular Volume 92.6 fL (80-94); Mean Platelet Vol. 9.2 fl (6.2-12.0); Monocyte# 0.64 X10^3/uL; Monocyte% 9.2 % (0-10); NRBC Flagged by Analyzer 0 % (0-5); Neutrophil # 4.45 X10^3/uL (2.7-7.7); Neutrophil % 63.8 % (47-70); Platelet Count 301 K/mm3 (150-450); RBC Distribution Width CV 13.5 % (11.6-14.6); RBC Distribution Width SD 45.8 fl (35.1-43.9); Red Blood Count 4.97 M/mm3 (4.6-6.2)
--- NOTE | 2020-01-31 11:08 | RAD_ITS ---
STUDY: X-RAY CHEST REASON FOR EXAM: Male, 84 years old. Intermittent palpitations , heart racing and cp. Started 3 days ago. Hx same with a fib rvr TECHNIQUE: Single AP portable view of the chest. COMPARISON: Comparison is made with prior study 06/29/2018. FINDINGS: EKG electrodes are seen. Stable mild elevation of the right hemidiaphragm. There is no demonstrated pleural abnormality. There is moderate cardiac enlargement. Normal mediastinum and zackery. Normal visualized pulmonary arteries. There is atherosclerotic tortuosity of the aortic arch and descending thoracic aorta. There are diffuse degenerative changes of the visualized thoracic spine. There is degenerative osteoarthritis of the bilateral shoulders. There is no demonstrated abnormality of the visualized soft tissue structures of the upper abdomen. RAD/Chest 1 View (Portable) IMPRESSION: Cardiomegaly. Electronically Signed: Osman Donohue, at 11:56 EDT , Service support ,
[2020-01-31 11:20] LABS: Anion Gap 8 (5-15); BUN 17 mg/dL (7-18); Calcium,Total 9.7 mg/dL (8.5-10.1); Chloride 107 mmol/L (98-107); Creatinine, Serum 1.31 mg/dL (0.70-1.30); EST Glomerular Filtration Rate 55 mL/min (>60); Est Glom Filt Rate - Afr Amer 67 mL/min (>60); Estimated Creatinine Clearance 39.89 ml/min; Glucose 114 mg/dL (74-106); Potassium 3.4 mmol/L (3.5-5.1); Sodium Level 140 mmol/L (136-145)
[2020-01-31] MEDS: Aspirin 81 MG TAB.CHEW 324 MG PO (11:37)
[2020-01-31 11:40] LABS: International Normalized Ratio 2.5; Prothrombin Time (Protime)PT. 26.9 SECONDS (11.7-14.9)
--- NOTE | 2020-01-31 13:23 | ED.DCSUM_ITS ---
- ER Visit Summary Date of Service: 01/31/20 Chief Complaint: Atrial fibrillation History of Present Illness: The patient is a [address] Espinal and Dr. Marshall. He reports that he has a history of paroxysmal atrial fibrillation. He complains of palpitations for the past 3 to 4 days. He states that he has chest pain that began overnight while he was at rest. It is a pressure that is 5-10 at worst and is pain-free currently. Is worsened by exertion and relieved by rest. He denies any associated nausea, vomiting, diaphoresis, shortness of breath. There is no radiation of this pain. He reports he has had this previously with his atrial fibrillation. Physical Examination: Vitals: Stable. Afebrile. General: Well-nourished and well-developed. Head: Normocephalic atraumatic. Neck: Supple, no lymphadenopathy. No JVD. Nontender. Cardiovascular: Regular rhythm with a 2 out of 6 stock murmur. Respiratory: No respiratory distress. Clear to auscultation bilaterally. Abdominal: Soft, nontender, nondistended, normal bowel sounds. No guarding, rebound, or peritoneal signs. Back: Nontender. Extremities: Nontender, no edema. Skin: Normal color, no rash. Neurologic: Alert and oriented ?3. Cranial nerves II through XII are intact. Normal strength and sensation. Psych: Normal affect. Test Results: EKG is a flutter at 97 with a variable AV block. Nonspecific. Intraventricular conduction delay. No acute ST changes. Troponin is negative. Chem-7 shows potassium 3.4, creatinine 1.31, glucose 114. INR is 2.5. Chart review shows that his INR has been greater than 2 since December 17. CBC is normal. Clinical Impression(s) from Imaging Studies Chest X-Ray 01/31/20 11:08 IMPRESSION: Cardiomegaly. Electronically Signed: Osman Donohue, at 11:56 EDT , Service support , Emergency Department Course and Treatment: Patient was given aspirin p.o. His heart rate is in the 70s to 80s. Therefore he was not given anything to slow him. However, he remained in atrial flutter while here. Patient was discussed with Dr. Mcgovern. The patient would like to be cardioverted and has in the past. After review of his coags over the past [address] Mcgovern has agreed with this. Patient was given 8 mg of etomidate IV and was cardioverted. Treatment Plan: Patient will be discharged instructions to follow-up with in 1 to 2 weeks for another exam. Return to the emergency department for any worsening symptoms. Disposition: To home in improved and stable condition. Impression: 1. Atrial flutter. 2. Coumadin coagulopathy. 3. Procedural sedation for 3 minutes. 4. Cardioversion. This note was generated with [employer] dictation software. It may contain incorrect words, spelling, and punctuation that were not noted in review of the chart prior to signing ED Disposition - Plan for ED Patient: Instructions: ED AFIB Referrals: Orville Espinal MD [STAFF PHYSICIAN] - 1-2 Weeks
[2020-01-31] MEDS: Etomidate 20 MG/10 ML Vial 8 MG IV (14:44)
--- NOTE | 2020-01-31 14:48 | EKG12_ITS ---
Test Reason : REPEAT EKG Blood Pressure : / mmHG Vent. Rate : 056 BPM Atrial Rate : 056 BPM P-R Int : 264 ms QRS Dur : 132 ms QT Int : 442 ms P-R-T Axes : 032 -54 029 degrees QTc Int : 426 ms Sinus bradycardia with 1st degree A-V block Left axis deviation Non-specific intra-ventricular conduction block Inferior infarct , age undetermined Abnormal ECG Confirmed by BEN CARDENAS, ELDA ([id number]), acquisitions editor CONSTANCE SCHAEFER ([id number]) on 02/04/2020 2:41:24 PM Referred By: Orville sEpinal Confirmed By:MELISSA CONTRERAS MD
== END 2020-01-31 15:50 | disposition home or self-care (01) ==
LOC: ED 12:02
PROVIDERS: Emergency Provider Emergency Medicine; PCP Family Medicine
DX: I48.92 Unspecified atrial flutter (principal); R79.1 Abnormal coagulation profile; I25.10 Atherosclerotic heart disease of native coronary artery without angina pectoris; Z79.01 Long term (current) use of anticoagulants
CPT/HCPCS: 71045; 80048; 84484; 85025; 85610; 92960; 93005; 96374; 96375; 99284; J7050; A4216

== ENCOUNTER 2020-02-06 08:51 | Emergency (ER) | payer MEDICARE, OTHER, SELFPAY ==
[2020-01-31 10:41] VITALS: BMI 32.1
[2020-02-06 08:52] VITALS: BP 142/98; PULSE 74; RESP 16; TEMP 36.4; O2SAT 96; BMI 30.4
--- NOTE | 2020-02-06 09:10 | EKG12_ITS ---
Test Reason : PALPS Blood Pressure : / mmHG Vent. Rate : 065 BPM Atrial Rate : 065 BPM P-R Int : 194 ms QRS Dur : 132 ms QT Int : 468 ms P-R-T Axes : 033 -59 028 degrees QTc Int : 486 ms Sinus rhythm with frequent Premature ventricular complexes Left axis deviation Non-specific intra-ventricular conduction block Abnormal ECG Confirmed by ERAN CARDENAS, ERIN ([id number]), editor dictionary CONSTANCE SCHAEFER ([id number]) on 02/07/2020 10:05:19 AM Referred By: ABRAHAM Confirmed By:ERIN BARILLAS MD
--- NOTE | 2020-02-06 09:10 | RAD_ITS ---
STUDY: X-RAY CHEST REASON FOR EXAM: Male, 84 years old. PALPITATIONS THROUGH THE NIGHT, BILATERAL RALES AND PITTING EDEMA, HX AFIB TECHNIQUE: PA and lateral views of the chest. COMPARISON: 01/31/2020. FINDINGS: Borderline cardiomegaly. Pulmonary vascularity unremarkable. Aorta calcified. No focal patchy airspace opacities. No pleural effusions. Coarse lung markings/COPD. Mild atelectasis/scar. Upper abdomen unremarkable. Osseous structures are demineralized with degenerative features. Kyphoplasty. No pneumothorax. RAD/Chest PA and Lateral IMPRESSION: No acute cardiopulmonary findings Degenerative changes, as above Electronically Signed: Asa Lopes DO at 9:47 EDT Tel , Service support ,
--- NOTE | 2020-02-06 09:11 | ED.DCSUM_ITS ---
History of Present Illness Chief Complaint: Palpitations Detail of Chief Complaint: Atrial fibrillation and not able to sleep Onset: Yesterday - Onset 2200 Context: Sudden Onset Timing: Continuous Quality: Difficulty sleeping in atrial fibrillation, read HPI Location: Vague generalized not applicable Current Severity: Mild Maximum Severity: Moderate Worsened by: Nothing Relieved by: Read HPI Associated Symptoms: Hot cold Narrative: Patient is a 4-year-old male who was seen last week and had cardioversion for atrial fibrillation. Is on Coumadin. He states he went to bed at 2100. He awoke at 2200. He was not able to get back to sleep. He states he tossed and turned. He would remove his blankets and place his blankets back on. He denied fever or chills. He has chronic nasal congestion and rhinorrhea. Denies sore throat. Denies change in taste or smell. He denies cough, dyspnea, orthopnea or PND. He sleeps with one pillow. He states it is common for him to have swelling of his legs. He denies abdominal pain. He reported nausea without vomiting diarrhea. He denies dysuria, frequency, urgency or hematuria. He states he was seen her last week and was cardioverted for A. fib. He voiced frustration because it keeps reoccurring. When asked what he meant he stated the atrial fibrillation. Prior similar symptoms: Yes Recent Illness/Hospitalization: Yes - Past Medical History (1) Atherosclerotic heart disease of [place] coronary artery without angina pectoris Status: Chronic (2) Claudication Status: Chronic (3) Essential (primary) hypertension Status: Chronic (4) HLD (hyperlipidemia) Status: Chronic (5) History of coronary artery stent placement Status: Chronic Comment: PCI-AB-LAD w/ taxus stent 06/2005 (6) custodial current use of anticoagulant Status: Chronic (7) Paroxysmal atrial fibrillation Status: Chronic (8) Premature ventricular contractions Status: Chronic (9) [place] of face Status: Chronic Past Medical History - Allergies and Home Meds Allergies/Adverse Reactions: Allergies lidocaine Allergy (Verified 02/06/20 08:52) Shortness of breath/PVC'S lovastatin Allergy (Verified 02/06/20 08:52) Unknown niacin [From Advicor] Allergy (Verified 02/06/20 08:52) Unknown prazosin HCl [From Minipress] Allergy (Verified 02/06/20 08:52) Unknown Primary Care Physician: Parish Marshall DO [Primary Care Provider] - Prior records reviewed: Yes Surgical History: angioplasty, cholecystectomy, herniorrhaphy, total knee arthroplasty, tonsillectomy, - - Hemmert ectomy, right shoulder arthroscopic surgery. Lives: Spouse/ Significant Other Smoking Status: Never smoker Alcohol: None Drugs: None - Family History Maternal Family History: Family History (Last Reviewed 12/18/19 @ 16:02 by Madiha Owen NP, DIRECTOR TALENT ACQUISITION-C) Father Cancer Mother Hypertension Myocardial infarction Sudden cardiac Brother Myocardial infarction valve replacement Sister Hypertension Sister Hypertension Family History: Reports: Heart Disease, Hypertension Paternal Family History: Family History (Last Reviewed 12/18/19 @ 16:02 by Madiha Owen NP, DIRECTOR TALENT ACQUISITION-C) Father Cancer Mother Hypertension Myocardial infarction Sudden cardiac Brother Myocardial infarction valve replacement Sister Hypertension Sister Hypertension Family History: Reports: Cancer Sibling Family History: Family History (Last Reviewed 12/18/19 @ 16:02 by Madiha Owen NP, DIRECTOR TALENT ACQUISITION-C) Father Cancer Mother Hypertension Myocardial infarction Sudden cardiac Brother Myocardial infarction valve replacement Sister Hypertension Sister Hypertension Family History: Reports: Heart Disease Review of Systems General: Reports: - - Difficulty sleeping and has not slept since 2199.. Denies: Chills, Fever, Malaise, Sweats, Weight loss Eyes: Denies: Visual changes - bilaterally, Blurred Vision - bilaterally, Diplopia ENT: Reports: Rhinorrhea. Denies: Bilateral ear pain, Sore throat Cardiovascular: Reports: Palpitations Respiratory: Denies: Dyspnea, Cough, Dyspnea on exertion, Orthopnea, Paroxysmal nocturnal dyspnea Gastrointestinal: Reports: Nausea. Denies: Abdominal pain, Vomiting, Diarrhea, Constipation, Melena, Hematochezia, -, - Genitourinary: Denies: Dysuria, Hematuria, Frequency Musculoskeletal: Reports: Swelling. Denies: Myalgias, Arthralgias, Neck pain, Back pain, Extremity Pain, -, - Skin: Denies: Rash, Wounds Neurological: Denies: Headache, Weakness, Numbness Endocrine: Denies: Polyuria, Polydipsia Allergy: Denies: Uticaria, Swelling of the mouth Physical Exam Vital Signs/Narrative: Vital Signs Temp Pulse Resp BP Pulse Ox 02/06/20 08:52 97.6 F L 74 16 142/98 H 96 Inital Vital Signs reviewed: Yes General: Well nourished, Well developed, No Acute Distress Eyes: Perrl, EOMI. Negative for: Scleral icterus ENT: Moist mucous membranes, No rhinorrhea Neck: Supple, Nontender, No lymphadenopathy, No JVD Cardiovascular: Regular rhythm, No murmurs, Normal S1, - - Optic beats noted and are ventricular immature beats on the monitor. Respiratory: No distress, Rales - Rales bilaterally. Negative for: CTA bilaterally, Chest nontender Abdomen: Soft, Nontender, Nondistended, Normal bowel sounds Rectal: Deferred Back: Nontender, Normal Inspection Extremities: Nontender, Edema - 2 mm pitting edema bilaterally. Negative for: Tenderness Neurological: Alert, Oriented x3, Cranial nerves II-XII grossly intact, Normal Strength, Normal Sensation Psychological: - - Flat affect and slight agitation Diagnostic/Tx/Re-eval Chest X-Ray - ED: 2 View, No Acute Disease, Chronic Changes, - - And was compared to x-ray obtained January 30. Chronic changes are noted. Borderline cardiomegaly. Pacemaker/defibrillator noted. There is no pneumothorax. There is no effusion. There is no cephalization or curly B-lines. Impressions Chest X-Ray 02/06/20 09:10 IMPRESSION: No acute cardiopulmonary findings Degenerative changes, as above Electronically Signed: Asa Lopes DO at 9:47 EDT Tel , Service support , 02/06/20 09:10 Chest PA and Lateral [RAD] Stat Laboratory Results 02/06/20 02/06/20 02/06/20 09:05 09:05 09:05 WBC 8.3 RBC 4.98 Hgb 15.9 Hct 46.4 MCV 93.2 MCH 31.9 MCHC 34.3 RDW Std Deviation 45.8 H RDW Coeff of Roger 13.3 Plt Count 305 MPV 9.9 Immature Gran % (Auto) 0.400 Neut % (Auto) 63.1 Lymph % (Auto) 22.0 [place] % (Auto) 9.9 Eos % (Auto) 3.9 Baso % (Auto) 0.7 Absolute Neuts (auto) 5.2 Absolute Lymphs (auto) 1.82 Nucleated RBC % 0 APTT 38.9 H Sodium 136 Potassium 3.6 Chloride 104 Carbon Dioxide 25.0 Anion Gap 7 BUN 18 Creatinine 1.30 Estim Creat Clear Calc 40.19 Est GFR (MDRD) Af Amer 67 Est GFR (MDRD) Non-Af 56 L BUN/Creatinine Ratio 13.8 Glucose 105 Calcium 10.0 Troponin I < 0.015 - EKG Initial EKG Interpretation: Sinus Rhythm - Sinus rhythm with a ventricular rate of 65. There are premature ventricular beats noted. W[place] interval 194 ms. QRS duration 132 ms. QT duration 468 ms. [place] is to the left. There is a nonspecific intraventricular conduction delay. - Medical Decision Making Patient may have had it fibrillation at home. He does have history of paroxysmal atrial fibrillation. Is present not in atrial fib and he was made aware of this. Since he has pitting edema with bilateral rales were obtain chest x-ray to evaluate for congestive heart failure. CBC was obtained to evaluate for anemia. PT/INR since he is on Coumadin 2 sure he is properly anticoagulated. Basic metabolic panel was obtained to assess electrolytes and specifically renal function. EKG was obtained to verify rhythm and rule out ischemia. Patient was made aware of his test results. Patient be discharged to home. Has an appointment see Dr. Pena on February 12. ED Disposition - Plan for ED Patient: Disposition: Home or Assisted Living Diagnosis: Palpitations, Insomnia, History paroxysmal atrial fibrillation. Instructions: Premature Ventricular Contractions Referrals: Parish Marshall DO [Primary Care Provider] - 3-5 Days if not improving Orville Espinal MD [STAFF PHYSICIAN] - Keep Elsa appointment
[2020-02-06 09:30] LABS: Absolute Lymphocyte Count 1.82 X10^3/uL (0.83-4.51); Absolute Neutrophil Count 5.2 X10^3/uL (2.0-7.7); Basophil# 0.06 X10^3/uL; Basophil% 0.7 % (0-1); Eosinophil# 0.32 X10^3/uL; Eosinophils% 3.9 % (0-5); Hematocrit 46.4 % (40-54); Hemoglobin 15.9 g/dL (13.0-16.5); Lymphocyte # 1.82 X10^3/ul (4.0); Mean Corp Hgb Conc 34.3 g/dL (32-36); Mean Corpuscular Hgb 31.9 pg (27.0-32.0); Mean Corpuscular Volume 93.2 fL (80-94); Mean Platelet Vol. 9.9 fl (6.2-12.0); Monocyte# 0.82 X10^3/uL; Monocyte% 9.9 % (0-10); NRBC Flagged by Analyzer 0 % (0-5); Neutrophil # 5.24 X10^3/uL (2.7-7.7); Neutrophil % 63.1 % (47-70); Platelet Count 305 K/mm3 (150-450); RBC Distribution Width CV 13.3 % (11.6-14.6); RBC Distribution Width SD 45.8 fl (35.1-43.9); Red Blood Count 4.98 M/mm3 (4.6-6.2); White Blood Count 8.3 K/mm3 (4.4-11.0)
[2020-02-06 09:36] LABS: Partial Thromboplast Time 38.9 Seconds (24.1-36.2)
[2020-02-06 09:41] LABS: Anion Gap 7 (5-15); BUN 18 mg/dL (7-18); BUN/Creat Ratio 13.8 RATIO (10-20); Chloride 104 mmol/L (98-107); EST Glomerular Filtration Rate 56 mL/min (>60); Est Glom Filt Rate - Afr Amer 67 mL/min (>60); Estimated Creatinine Clearance 40.19 ml/min; Glucose 105 mg/dL (74-106); Potassium 3.6 mmol/L (3.5-5.1); Sodium Level 136 mmol/L (136-145)
[2020-02-06 10:23] VITALS: BP 128/80; PULSE 54; RESP 12; O2SAT 97
== END 2020-02-06 10:32 | disposition home or self-care (01) ==
PROVIDERS: Emergency Provider Emergency Medicine; PCP Family Medicine
DX: R00.2 Palpitations (principal); G47.00 Insomnia, unspecified; I48.0 Paroxysmal atrial fibrillation; J34.89 Other specified disorders of nose and nasal sinuses; R11.0 Nausea; I10 Essential (primary) hypertension; I49.3 Ventricular premature depolarization; I73.9 Peripheral vascular disease, unspecified; E78.5 Hyperlipidemia, unspecified; I25.10 Atherosclerotic heart disease of native coronary artery without angina pectoris; Z95.5 Presence of coronary angioplasty implant and graft; Z90.49 Acquired absence of other specified parts of digestive tract; Z79.01 Long term (current) use of anticoagulants; Z79.82 Long term (current) use of aspirin; Z79.899 Other long term (current) drug therapy
CPT/HCPCS: 71046; 80048; 84484; 85025; 85730; 93005; 99285; A4216

== ENCOUNTER 2020-02-20 09:00 | Outpatient (RCR) | payer MEDICARE, OTHER, SELFPAY ==
[2019-12-18 16:13] VITALS: BMI 30.9
[2020-02-20 09:16] LABS: Prothrombin Time Fingerstick 34.6 SEC (11.9-14.4)
== END 2020-02-20 18:00 | disposition home or self-care (01) ==
LOC: MTLAB 09:00
PROVIDERS: Family Provider Family Medicine; PCP Family Medicine; Referring Provider Internal Medicine Cardiovascular Disease; Visit Provider Internal Medicine Cardiovascular Disease
DX: I48.0 Paroxysmal atrial fibrillation (principal); Z79.01 Long term (current) use of anticoagulants
CPT/HCPCS: 36416; 85610

== ENCOUNTER 2020-03-19 10:22 | Outpatient (RCR) | payer MEDICARE, OTHER, SELFPAY ==
[2020-03-06 10:26] LABS: Prothrombin Time Fingerstick 40.2 SEC (11.9-14.4)
[2020-03-19 12:19] LABS: Absolute Lymphocyte Count 1.94 X10^3/uL (0.83-4.51); Absolute Neutrophil Count 4.4 X10^3/uL (2.0-7.7); Basophil# 0.06 X10^3/uL; Basophil% 0.8 % (0-1); Eosinophil# 0.32 X10^3/uL; Eosinophils% 4.3 % (0-5); Hematocrit 44.9 % (40-54); Hemoglobin 14.8 g/dL (13.0-16.5); Lymphocyte # 1.94 X10^3/ul (4.0); Lymphocyte % 25.9 % (19-41); Mean Corpuscular Hgb 31.2 pg (27.0-32.0); Mean Corpuscular Volume 94.5 fL (80-94); Mean Platelet Vol. 9.6 fl (6.2-12.0); Monocyte# 0.71 X10^3/uL; Monocyte% 9.5 % (0-10); NRBC Flagged by Analyzer 0 % (0-5); Neutrophil # 4.36 X10^3/uL (2.7-7.7); Neutrophil % 58.3 % (47-70); Platelet Count 286 K/mm3 (150-450); RBC Distribution Width CV 12.8 % (11.6-14.6); RBC Distribution Width SD 45.1 fl (35.1-43.9); Red Blood Count 4.75 M/mm3 (4.6-6.2); White Blood Count 7.5 K/mm3 (4.4-11.0)
[2020-03-19 12:34] LABS: Vitamin D,25 Hydroxy 35.2 ng/mL
[2020-03-19 12:34] LABS: International Normalized Ratio 2.7; Prothrombin Time (Protime)PT. 28.6 SECONDS (11.7-14.9)
[2020-03-19 12:39] LABS: ALB/GLOB Ratio 0.8 RATIO (0.9-2.4); AST(SGOT) 29 U/L (15-37); Alanine Aminotransfer ALT/SGPT 29 U/L (16-61); Albumin, Serum 3.8 g/dL (3.2-5.0); Alkaline Phosphatase 82 U/L (45-117); Anion Gap 7 (5-15); BUN 21 mg/dL (7-18); BUN/Creat Ratio 16.5 RATIO (10-20); Calcium,Total 9.5 mg/dL (8.5-10.1); Chloride 107 mmol/L (98-107); Cholesterol 236 mg/dL (200); Creatinine, Serum 1.27 mg/dL (0.70-1.30); EST Glomerular Filtration Rate 57 mL/min (>60); Est Glom Filt Rate - Afr Amer 69 mL/min (>60); Globulin 4.7 g/dL (2.2-4.2); Glucose 107 mg/dL (74-106); High Density Lipoprotein 51 mg/dL; Potassium 3.6 mmol/L (3.5-5.1); Protein, Total 8.5 g/dL (6.4-8.2); Sodium Level 139 mmol/L (136-145); T4 Free Direct 1.56 ng/dL (0.76-1.46); Thyroid Stim Hormone (TSH) 1.27 uIU/mL (0.358-3.74); Triglycerides 159 mg/dL; Very Low Density Lipoprotein 32 mg/dL (5-40)
== END 2020-03-19 18:00 | disposition home or self-care (01) ==
LOC: MTLAB 10:22
PROVIDERS: Family Provider Family Medicine; PCP Family Medicine; Referring Provider Internal Medicine Cardiovascular Disease; Visit Provider Internal Medicine Cardiovascular Disease
DX: I48.0 Paroxysmal atrial fibrillation (principal); Z79.01 Long term (current) use of anticoagulants; I12.9 Hypertensive chronic kidney disease with stage 1 through stage 4 chronic kidney disease, or unspecified chronic kidney disease; N18.30 Chronic kidney disease, stage 3 unspecified; E78.5 Hyperlipidemia, unspecified; E03.9 Hypothyroidism, unspecified; E55.9 Vitamin D deficiency, unspecified
CPT/HCPCS: 36415; 36416; 80053; 80061; 82306; 84439; 84443; 85025; 85610

== ENCOUNTER 2020-04-29 08:22 | Outpatient (RCR) | payer MEDICARE, OTHER, SELFPAY ==
[2020-04-17 11:40] LABS: Prothrombin Time Fingerstick 38.4 SEC (11.9-14.4)
[2020-04-29 10:08] LABS: International Normalized Ratio 2.8; Prothrombin Time (Protime)PT. 28.9 SECONDS (11.7-14.9)
== END 2020-04-29 18:00 | disposition home or self-care (01) ==
LOC: MTLAB 08:22
PROVIDERS: Family Provider Family Medicine; PCP Family Medicine; Referring Provider Internal Medicine Cardiovascular Disease; Visit Provider Internal Medicine Cardiovascular Disease
DX: I48.0 Paroxysmal atrial fibrillation (principal); Z79.01 Long term (current) use of anticoagulants
CPT/HCPCS: 36415; 36416; 85610

== ENCOUNTER 2020-06-05 10:51 | Outpatient (RCR) | payer MEDICARE, OTHER, SELFPAY ==
[2020-04-28 10:55] VITALS: BMI 32.4
[2020-06-05 12:01] LABS: International Normalized Ratio 2.5
== END 2020-06-05 18:00 | disposition home or self-care (01) ==
LOC: MTLAB 10:51
PROVIDERS: Family Provider Family Medicine; PCP Family Medicine; Referring Provider Internal Medicine Cardiovascular Disease; Visit Provider Internal Medicine Cardiovascular Disease
DX: I48.0 Paroxysmal atrial fibrillation (principal); Z79.01 Long term (current) use of anticoagulants
CPT/HCPCS: 36415; 85610

== ENCOUNTER 2020-06-25 10:50 | Outpatient (RCR) | payer MEDICARE, SELFPAY ==
[2020-04-28 10:55] VITALS: BMI 32.4
== END 2020-06-25 23:59 ==
LOC: IMMUN 10:50
PROVIDERS: PCP Family Medicine; Visit Provider Family Medicine
DX: Z23 Encounter for immunization (principal)
CPT/HCPCS: 0011A; 0012A; 91301

== ENCOUNTER 2020-07-25 10:16 | Outpatient (RCR) | payer MEDICARE, OTHER, SELFPAY ==
[2020-04-28 10:55] VITALS: BMI 32.4
[2020-07-25 15:38] LABS: INR Fingerstick 2.5; Prothrombin Time Fingerstick 28.4 SEC (11.9-14.4)
== END 2020-07-25 18:00 | disposition home or self-care (01) ==
LOC: MTLAB 10:16
PROVIDERS: Family Provider Family Medicine; PCP Family Medicine; Referring Provider Internal Medicine Cardiovascular Disease; Visit Provider Internal Medicine Cardiovascular Disease
DX: I48.0 Paroxysmal atrial fibrillation (principal); Z79.01 Long term (current) use of anticoagulants
CPT/HCPCS: 36416; 85610

== ENCOUNTER 2020-09-16 10:33 | Outpatient (RCR) | payer MEDICARE, OTHER, SELFPAY ==
[2020-04-28 10:55] VITALS: BMI 32.4
[2020-09-16 10:46] LABS: INR Fingerstick 3.2; Prothrombin Time Fingerstick 34.7 SEC (11.9-14.4)
== END 2020-09-16 18:00 | disposition home or self-care (01) ==
LOC: MTLAB 10:33
PROVIDERS: Family Provider Family Medicine; PCP Family Medicine; Referring Provider Internal Medicine Cardiovascular Disease; Visit Provider Internal Medicine Cardiovascular Disease
DX: I48.0 Paroxysmal atrial fibrillation (principal); Z79.01 Long term (current) use of anticoagulants
CPT/HCPCS: 36416; 85610

== ENCOUNTER 2020-11-18 11:20 | Outpatient (RCR) | payer MEDICARE, OTHER, SELFPAY ==
[2020-04-28 10:55] VITALS: BMI 32.4
[2020-11-18 10:08] VITALS: BMI 32.6
[2020-11-18 11:36] LABS: INR Fingerstick 2.5; Prothrombin Time Fingerstick 27.7 SEC (11.9-14.4)
== END 2020-11-18 18:00 | disposition home or self-care (01) ==
LOC: MTLAB 11:20
PROVIDERS: Family Provider Family Medicine; PCP Family Medicine; Referring Provider Internal Medicine Cardiovascular Disease; Visit Provider Internal Medicine Cardiovascular Disease
DX: I48.0 Paroxysmal atrial fibrillation (principal); Z79.01 Long term (current) use of anticoagulants
CPT/HCPCS: 36416; 85610

== ENCOUNTER 2021-01-23 14:01 | Outpatient (RCR) | payer MEDICARE, OTHER, SELFPAY ==
[2021-01-23 15:25] LABS: Absolute Lymphocyte Count 1.54 X10^3/uL (0.83-4.51); Absolute Neutrophil Count 4.2 X10^3/uL (2.0-7.7); Basophil# 0.06 X10^3/uL; Basophil% 0.9 % (0-1); Eosinophil# 0.26 X10^3/uL; Eosinophils% 3.7 % (0-5); Hematocrit 42.2 % (40-54); Hemoglobin 14.4 g/dL (13.0-16.5); Lymphocyte # 1.54 X10^3/ul (0.83-4.51); Lymphocyte % 22.2 % (19-41); Mean Corp Hgb Conc 34.1 g/dL (32-36); Mean Corpuscular Hgb 32.1 pg (27.0-32.0); Mean Corpuscular Volume 94.2 fL (80-94); Mean Platelet Vol. 9.5 fl (6.2-12.0); Monocyte# 0.84 X10^3/uL; Monocyte% 12.1 % (0-10); NRBC Flagged by Analyzer 0 % (0-5); Neutrophil # 4.23 X10^3/uL (2.7-7.7); Platelet Count 266 K/mm3 (150-450); RBC Distribution Width CV 13.1 % (11.6-14.6); RBC Distribution Width SD 44.5 fl (35.1-43.9); Red Blood Count 4.48 M/mm3 (4.6-6.2); White Blood Count 6.9 K/mm3 (4.4-11.0)
[2021-01-23 15:54] LABS: ALB/GLOB Ratio 0.7 RATIO (0.9-2.4); AST(SGOT) 33 U/L (15-37); Alanine Aminotransfer ALT/SGPT 30 U/L (16-61); Albumin, Serum 3.6 g/dL (3.2-5.0); Alkaline Phosphatase 74 U/L (45-117); Anion Gap 4 (5-15); BUN 21 mg/dL (7-18); Calcium,Total 9.1 mg/dL (8.5-10.1); Chloride 107 mmol/L (98-107); Cholesterol 224 mg/dL (200); EST Glomerular Filtration Rate 47 mL/min (>60); Est Glom Filt Rate - Afr Amer 57 mL/min (>60); Globulin 5.1 g/dL (2.2-4.2); Glucose 114 mg/dL (74-106); High Density Lipoprotein 49 mg/dL; Potassium 3.7 mmol/L (3.5-5.1); Protein, Total 8.7 g/dL (6.4-8.2); Sodium Level 138 mmol/L (136-145); T4 Free Direct 1.23 ng/dL (0.76-1.46); Thyroid Stim Hormone (TSH) 3.33 uIU/mL (0.358-3.74); Triglycerides 274 mg/dL; Very Low Density Lipoprotein 55 mg/dL (5-40)
[2021-01-23 16:06] LABS: Vitamin D,25 Hydroxy 44.2 ng/mL
== END 2021-01-23 18:00 | disposition home or self-care (01) ==
LOC: MTLAB 14:01
PROVIDERS: Family Provider Family Medicine; PCP Family Medicine; Referring Provider Internal Medicine Cardiovascular Disease; Visit Provider Internal Medicine Cardiovascular Disease
DX: I12.9 Hypertensive chronic kidney disease with stage 1 through stage 4 chronic kidney disease, or unspecified chronic kidney disease (principal); N18.30 Chronic kidney disease, stage 3 unspecified; E78.5 Hyperlipidemia, unspecified; E03.9 Hypothyroidism, unspecified; Z78.9 Other specified health status
CPT/HCPCS: 36415; 80053; 80061; 82306; 84439; 84443; 85025

== ENCOUNTER → 2021-02-18 12:47 | Outpatient (CLI) | payer MEDICARE, OTHER, SELFPAY ==
--- NOTE | 2021-02-18 12:51 | CT_ITS ---
STUDY: CT CHEST, ABDOMEN T PELVIS WITH CONTRAST REASON FOR EXAM: Male, 85 years old. R/O NHL. Macroglobulinemia. RADIATION DOSAGE (If Supplied By Facility): CTDIvol = ( 22.22 ) mGy, DLP = ( 3522.92 ) mGycm TECHNIQUE: Transaxial imaging was performed following intravenous administration of Oral and amp; IV Readi-CAT and amp; 100mL Isovue-300. Individualized dose optimization techniques were used for this CT. COMPARISON: Comparison is made with prior CT scan of the chest dated 02/15/[address] scan of the abdomen dated 12/18/2019. FINDINGS: CHEST Mild degree of increased linear markings with areas of confluence along the medial anterior aspect of the right upper lobe. Mild degree of increased markings also seen in the medial aspect of the left upper lobe. Mild increased markings also seen along the posterior aspect of the right upper lobe abutting the minor fissure. There is also evidence of mild increased markings at the lung bases with areas of confluence worse in the peripheral lateral aspect of the right lower renal. Findings are suggestive of a scarring. There has been progression since prior study. There is a 5.2 mm noncalcified nodule in the anterior lateral aspect of the right upper lobe as seen on axial image #54. This was not present on prior examination. There is no demonstrated pleural abnormality. There is mild cardiac enlargement. There are calcifications of the coronary arteries. There are multiple small lymph nodes within the mediastinum, which are normal in size and morphology most compatible with reactive lymph hyperplasia. Normal hilar regions. Normal unenhanced pulmonary arteries. There is atherosclerotic calcification of the aortic arch with tortuosity and elongation of the aortic arch and descending thoracic aorta. There are multi-level degenerative changes of the thoracic spine. ABDOMEN There is a 3.4 cm x 4.5 cm irregular hypodense lesion in the dome of the right lobe of the liver. This has progressed as compared to prior study. The patient is status post cholecystectomy. Normal spleen. Normal pancreas. Normal bilateral adrenal glands. There is a 3.2 cm x 3.4 cm cyst in the lower pole of the right kidney. Tiny centimeter cysts are seen in the upper pole of the right kidney. There is a 2 cm cyst in the anterior upper pole of the left kidney as well as a 2 cm cyst in the midportion. There is also evidence of a 5.4 cm x 5.6 m cyst in the lower pole of the left kidney. There is a small hiatal hernia. Normal small intestine. There are multiple colonic diverticula consistent with diverticulosis. The appendix is visualized and appears normal. There is diffuse atherosclerotic calcification of the abdominal aorta and its major visceral branches, without a demonstrated aneurysm. Normal inferior vena cava. Normal retroperitoneum. Normal abdominal wall. PELVIS Normal urinary bladder. Prostatic enlargement. It measures 4.8 cm x 5.3 cm. This causes an indentation at the bladder base. Normal visualized small intestine. Normal visualized colon. There is no pelvic fluid. There is no pelvic lymphadenopathy or mass lesion. There is diffuse atherosclerotic calcification of the pelvic arteries. Normal abdominal wall. There are degenerative changes of the visualized lumbar spine. Loss of height of the L5 vertebrae. Loss of height of the L2 vertebrae. Prior vertebroplasty of the L1 vertebrae. CT/CT Chest, Abd, Pel w/Contrast IMPRESSION: 3.4 cm x 4.5 cm irregular hypodense nodule in the dome of the right lobe of the liver. This has progressed as compared to prior study. Bilateral renal cysts. Prostatic enlargement with indentation at the bladder base. Electronically Signed: Osman Donohue MD at 15:30 EDT , Service support ,
--- NOTE | 2021-02-18 12:51 | CT_ITS ---
STUDY: CT SOFT TISSUE NECK WITH CONTRAST REASON FOR EXAM: Male, 85 years old. R/O NHL. History of macroglobulinemia. RADIATION DOSAGE (If Supplied By Facility): CTDIvol = ( 22.22 ) mGy, DLP = ( 3522.92 ) mGycm TECHNIQUE: The patient was scanned in a multi-detector CT scanner. High resolution transaxial imaging was performed following intravenous administration of Oral and amp; IV Readi-CAT and amp; 100mL Isovue-300. Sagittal and coronal images were reconstructed. Individualized dose optimization techniques were used for this CT. COMPARISON: None. FINDINGS: Normal bilateral parotid glands. Normal bilateral packaging line attendant spaces. Normal bilateral parapharyngeal spaces. Normal bilateral carotid spaces. Normal bilateral sublingual and submandibular glands and spaces. Normal visualized nasopharynx. Normal retropharyngeal space. Normal perivertebral space. Normal visualized bilateral faucial tonsils. The visualized tongue, tongue base and oropharynx are normal. The visualized cervical lymph nodes (levels I-) are within normal size limits, and maintain normal morphology. There is no demonstrated solid or cystic mass lesion. There is no abnormal contrast enhancement. Normal epiglottis, bilateral vallecula and hypopharynx. The pre-epiglottic and paraglottic adipose spaces are normal. Normal visualized bilateral piriform sinuses, aryepiglottic folds, vocal cords, and arytenoid-cricoid articulations. Normal subglottic trachea. Normal bilateral lobes of the thyroid gland. Normal visualized pulmonary apices. Atherosclerotic calcification of the aortic arch. Normal visualized paranasal sinuses. There is multilevel degenerative changes of the cervical spine. The mineralization of the cervical vertebrae with areas of decreased attenuation. A bone scan is recommended for further evaluation. CT/Soft Tissue Neck WITH Contrast IMPRESSION: Heterogeneous appearance of the cervical vertebrae as described. Correlation with the bone scan is recommended. Electronically Signed: Osman Donohue MD at 15:32 EDT , Service support ,
== END ==
PROVIDERS: PCP Family Medicine; Referring Provider Internal Medicine Medical Oncology; Visit Provider Internal Medicine Medical Oncology
DX: C88.0 Waldenstrom macroglobulinemia (principal); N28.1 Cyst of kidney, acquired; N40.0 Benign prostatic hyperplasia without lower urinary tract symptoms
CPT/HCPCS: 70491; 71260; 74177; Q9967

== ENCOUNTER → 2021-02-27 08:01 | Outpatient (CLI) | payer MEDICARE, OTHER, SELFPAY ==
--- NOTE | 2021-02-27 08:49 | NM_ITS ---
CLINICAL: 85-year-old male with reported history of low back discomfort. WHOLE BODY 99m Tc MDP RADIONUCLIDE BONE SCINTIGRAPHY COMPARISON: None available FINDINGS: Following the intravenous administration of 24.8 mCi of 99m Tc MDP, whole body bone images reveal: 1. Increased radiopharmaceutical concentration is defined in the right anterior fifth rib at the costochondral junction. 2. Facilitated uptake is observed in the acromioclavicular and sternoclavicular compartments of both shoulders, third lumbar vertebra posteriorly on the left, sacrum posteriorly on the right, the anterolateral femoral and anteromedial tibial compartments of the right knee. 3. The remaining skeletal structures are scintigraphically unremarkable with normal-appearing renal images and urinary bladder activity identified. A left knee arthroplasty is defined without evidence of significant facilitated tracer uptake. NM/Bone Scan Whole Body IMPRESSION: 1. The increase in radiopharmaceutical distribution visualized in the right anterior fifth rib is most consistent with trauma-fracture. Plain film radiography correlation may be of benefit. 2. 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 3. There is no definitive typical scintigraphic evidence of trauma-fracture or changes attributed to diffuse skeletal metastatic disease on the current examination. Electronically Signed: Enrique Avery DO at 8:01 EDT Tel , Service support ,
== END ==
PROVIDERS: PCP Family Medicine; Referring Provider Internal Medicine Medical Oncology; Visit Provider Internal Medicine Medical Oncology
DX: R16.0 Hepatomegaly, not elsewhere classified (principal)
CPT/HCPCS: 78306; A9503

== ENCOUNTER → 2021-03-13 08:45 | Outpatient (CLI) | payer MEDICARE, OTHER, SELFPAY ==
--- NOTE | 2021-03-13 08:45 | CT_ITS ---
STUDY: CT ABDOMEN WITH CONTRAST REASON FOR EXAM: Male, 86 years old. LIVER MASS BX RADIATION DOSAGE (If Supplied By Facility): CTDIvol = ( 19 ) mGy, DLP = ( 634.33 ) mGycm TECHNIQUE: Transaxial images were obtained post I.V. administration of 100 cc of ISOVUE-300, and without oral contrast. Sagittal and coronal images were reconstructed. Individualized dose optimization techniques were used for this CT. COMPARISON: Comparison is made with prior examination dated 02/18/2021. FINDINGS: There is a 3.8 cm x 2.6 cm heterogeneous nodular density in the dome of the right lobe of liver. This nodule is not accessible for percutaneous biopsy due to the surrounding lung tissue. Follow-up examination or MRI examination of the liver is recommended. The recent PET scan did not demonstrate any uptake. CT/Biopsy/Inj or Needle Placement IMPRESSION: Heterogeneous nodule in the dome of the right lobe of the liver. Not accessible for safe percutaneous biopsy. Electronically Signed: Osman Donohue MD at 12:17 EST , Service support ,
[2021-03-13 08:58] LABS: Absolute Lymphocyte Count 1.74 X10^3/uL (0.83-4.51); Absolute Neutrophil Count 5.1 X10^3/uL (2.0-7.7); Basophil# 0.06 X10^3/uL; Basophil% 0.7 % (0-1); Eosinophil# 0.32 X10^3/uL; Hematocrit 43.1 % (40-54); Hemoglobin 14.7 g/dL (13.0-16.5); Lymphocyte # 1.74 X10^3/ul (0.83-4.51); Lymphocyte % 21.6 % (19-41); Mean Corp Hgb Conc 34.1 g/dL (32-36); Mean Corpuscular Hgb 31.3 pg (27.0-32.0); Mean Corpuscular Volume 91.9 fL (80-94); Mean Platelet Vol. 9.1 fl (6.2-12.0); Monocyte# 0.81 X10^3/uL; Monocyte% 10.1 % (0-10); NRBC Flagged by Analyzer 0 % (0-5); Neutrophil % 63.4 % (47-70); Platelet Count 258 K/mm3 (150-450); RBC Distribution Width CV 13.2 % (11.6-14.6); RBC Distribution Width SD 44.6 fl (35.1-43.9); Red Blood Count 4.69 M/mm3 (4.6-6.2); White Blood Count 8.1 K/mm3 (4.4-11.0)
[2021-03-13 09:15] LABS: International Normalized Ratio 1.4; Partial Thromboplast Time 33.3 Seconds (24.1-36.2); Prothrombin Time (Protime)PT. 16.3 SECONDS (11.7-14.9)
[2021-03-13 10:03] VITALS: TEMP 36.6; BMI 32.5
--- NOTE | 2021-03-13 10:10 | NURSING ---
PT SCANNED PER DR LESTER REQUEST. IMAGE REVIEWED. DR LESTER SPOKE WITH AND PATIENT. LESION NOT ACCESSIBLE SAFELY BY CT, ALSO PET DID NOT CORRELATE. PER DR LESTER, WILL FOLLOW UP WITH DR LOCO FOR FURTHER OBSERVATION/MANAGEMENT.
== END | disposition home or self-care (01) ==
PROVIDERS: PCP Family Medicine; Referring Provider Internal Medicine Medical Oncology; Visit Provider Internal Medicine Medical Oncology
DX: R16.0 Hepatomegaly, not elsewhere classified (principal); I48.0 Paroxysmal atrial fibrillation; Z01.818 Encounter for other preprocedural examination
CPT/HCPCS: 47000; 36415; 77012; 85025; 85610; 85730; Q9967

== ENCOUNTER 2021-05-07 08:05 | Day surgery (SDC) | payer MEDICARE, OTHER, SELFPAY ==
[2021-05-07] VITALS (7 sets, daily range): BP systolic 111–150; BP diastolic 70–90; PULSE 54–73; RESP 18; TEMP 36.1–36.3; O2SAT 95–97; BMI 32.6
[2021-05-07] MEDS: Lactated Ringers 1,000 ML 15 ML IV (09:01)
[2021-05-07 09:11] LABS: INR Fingerstick 1.7; Prothrombin Time Fingerstick 20.8 SEC (11.9-14.4)
--- NOTE | 2021-05-07 09:24 | PCM.HP.BLA ---
History and Physical Date of Admission: 05/07/21 86 M who presents to the office today for Reports constipation that he manages with Miralax which works well. Reports some discomfort in his lower mid abdomen. Seeing Dr. Medeiros for macroglobulinemia, liver mass right lobe, PET abnormality. Current plan is observation while abnormal finding on PET is worked up. PET scan performed 03/10/21 with findings of increased tracer uptake in right thoracic perihilum not fulfilling criteria for malignant transformation. Prominent uptake in proximal ascending colon. Of note he has history of hepatitis B infection. CEA 7 on 02/23/21. AFP and CA19-9 normal. Biopsy of liver attempted 03/13/21 to address nodule in dome of right liver, but not safely accessible. CT chest/abd/pel performed 02/18/21 with findings of hypodense lesion in dome of right liver measuring 3.4cm x 4.5cm. Small hiatal hernia. Diverticulosis in colon. Renal cysts. Lung abnormalities including scarring with progression since last study. 5.2mm noncalcified nodule in anterior right upper lobe. Mild cardiac enlargement. Possible reactive lymph hyperplasia. ROS Const Constitutional: Positive for fatigue and weakness Cardio Cardiology: Positive for leg pain with exertion and shortness of breath Gastro GI: Positive for bloating Musc Musculoskeletal: Positive for joint pain, back pain, muscle weakness, stiffness, Arthritis, sciatica and leg pain with exertion Neuro Neurology: Positive for weakness Endo Endocrine: Positive for fatigue Exam Const General: cooperative and comfortable Nutritional Appearance: average body habitus and well nourished [facility] Head: normal to inspection Ears: hearing grossly normal bilaterally Nose: external nose normal Face and sinus: normal facial exam Mouth: oral mucosae normal Throat: posterior oropharynx normal Eyes General: appearance normal, both eyes and all related structures Neck Neck: normal visual inspection Chest Chest palpation & inspection: normal inspection of the chest and normal palpation of entire chest wall Resp Effort & Inspection: normal respiratory effort Auscultation: Bilateral: Clear to Auscultation Cardio Palpation: normal PMI Rate: regular rate Rhythm: regular rhythm GI Inspection: normal to inspection Auscultation: normal bowel sounds Percussion: normal to percussion Palpation: no hepatosplenomegaly Skin General: no rashes or lesions noted Neuro General: patient alert Extrem General: normal to inspection Psych Affect: normal affect Quality Reporting Tobacco Screening ([facility] 138) Smoking Status: Never smoker Assessment and Plan Assessment and Plan (1) Abnormal finding on imaging: Status: Acute Comment: PET/CT on 03/10/2021 shows activity in ascending colon. Orders: Orders: Colonoscopy Today Plan - Dr. 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 He was referred for further evaluation and management. He feels well, has chronic low back pain and waiting to have an implantable device in the back. CT scan done on 02/18/2021 shows Liver mass. Bone scan on 02/27/2021 showed DJD. Had a PET/CT and comes for follow up. CT guided bx of Liver mass on 03/13/2021 was unsuccessful. He will undergo an EGD and colonoscopy to evaluate his GI tract for any primary malignancy that may metastasized to the liver. If that is negative then will need capsule endoscopy. I have re-examined the patient. There are no clinical changes since date of exam.
--- NOTE | 2021-05-07 10:21 | OP.COLON_ITS ---
Patient Name: Cornelius Blackmon Procedure Date: 05/07/2021 9:33 AM Date of : 1935 Age: 86 Procedure: Colonoscopy Indications: Abnormal CT of the GI tract Providers: Panda Morales DO Medicines: See the Anesthesia note for documentation of the administered medications Patient Profile: This is an 86 year old male. Refer to note in patient chart for documentation of history and physical. Previously obtained CT showed a mass in the ascending colon. Last Colonoscopy: several years ago. Complications: No immediate complications. Procedure: Pre-Anesthesia Assessment: - Prior to the procedure, a History and Physical was performed, and patient medications and allergies were reviewed. The patient is competent. The risks and benefits of the procedure and the sedation options and risks were discussed with the patient. All questions were answered and informed consent was obtained. Patient identification and proposed procedure were verified by the physician in the pre-procedure area. Mental Status Examination: alert and oriented. Airway Examination: normal oropharyngeal airway and neck mobility. Respiratory Examination: clear to auscultation. CV Examination: normal. Prophylactic Antibiotics: The patient does not require prophylactic antibiotics. Prior Anticoagulants: The patient has taken no previous anticoagulant or antiplatelet agents. ASA Grade Assessment: II - A patient with mild systemic disease. After reviewing the risks and benefits, the patient was deemed in satisfactory condition to undergo the procedure. The anesthesia plan was to use moderate sedation / analgesia (conscious sedation). Immediately prior to administration of medications, the patient was re-assessed for adequacy to receive sedatives. The heart rate, respiratory rate, oxygen saturations, blood pressure, adequacy of pulmonary ventilation, and response to care were monitored throughout the procedure. The physical status of the patient was re-assessed after the procedure. After I obtained informed consent, the scope was passed under direct vision. Throughout the procedure, the patient's blood pressure, pulse, and oxygen saturations were monitored continuously. The pediatric colonoscope was introduced through the anus and advanced to the cecum, identified by appendiceal orifice and ileocecal valve. The ileocecal valve, appendiceal orifice, and rectum were photographed. Moderate Sedation: Moderate (conscious) sedation was administered by the endoscopy nurse and supervised by the endoscopist. The following parameters were monitored: oxygen saturation, heart rate, blood pressure, and response to care. Total physician intraservice time was 15 minutes. Scope In: 9:49:52 AM Scope Withdrawal Time 0 hours 11 minutes 50 seconds Scope Out: 10:12:11 AM Total Procedure Duration Time 0 hours 22 minutes 19 seconds Findings: The perianal and digital rectal examinations were normal. Multiple small and large-mouthed diverticula were found in the recto-sigmoid colon, sigmoid colon and descending colon. Non-bleeding hemorrhoids were found during retroflexion. The hemorrhoids were Grade II (internal hemorrhoids that prolapse but reduce spontaneously). The exam was otherwise without abnormality on direct and retroflexion views. Impression: - Moderate diverticulosis in the recto-sigmoid colon, in the sigmoid colon and in the descending colon. - Non-bleeding hemorrhoids. - The examination was otherwise normal on direct and retroflexion views. - No specimens collected. Recommendation: - Discharge patient to home. - Resume previous diet. - Continue present medications. - Return to referring physician in 1 week. - No repeat colonoscopy due to current age (66 years or older). Procedure Code(s): --- Professional --- 83584, Colonoscopy, flexible; diagnostic, including collection of specimen(s) by brushing or washing, when performed (separate procedure) 52905, 59, Moderate sedation services provided by the same physician or other qualified health women's health care nurse practitioner performing the diagnostic or therapeutic service that the sedation supports, requiring the presence of an independent trained observer to assist in the monitoring of the patient's level of consciousness and physiological status; initial 15 minutes of intraservice time, patient age 5 years or older CPT copyright 2017 [employer]. All rights reserved. The codes documented in this report are preliminary and upon debubblizer review may be revised to meet current compliance requirements. Panda Morales DO 05/07/2021 10:21:07 AM This report has been signed electronically. Number of Addenda: 1 Note Initiated On: 05/07/2021 9:33 AM Addendum Number: 1 Addendum Date: 01/07/2022 6:09:02 AM MAC was used instead of moderate sedation for the patient. Panda Morales DO 01/07/2022 6:09:06 AM This report has been signed electronically.
--- NOTE | 2021-05-07 10:22 | OP.CCLET_ITS ---
01/07/2022 Parish Marshall [address] [facility] [place] [address] Re : Colonoscopy procedure for Cornelius Maddiedeniz Dear Dr. Marshall This procedure was performed on May. My impressions and recommendations are as follows: Impressions : - Moderate diverticulosis in the recto-sigmoid colon, in the sigmoid colon and in the descending colon. - Non-bleeding hemorrhoids. - The examination was otherwise normal on direct and retroflexion views. - No specimens collected. Recommendations : - Discharge patient to home. - Resume previous diet. - Continue present medications. - Return to referring physician in 1 week. - No repeat colonoscopy due to current age (66 years or older). My findings are described in the full procedure note, which is enclosed. If I can be of further assistance, please feel free to contact me at . Sincerely, Panda Friend, 05/07/2021 10:21:07 AM This report has been signed electronically.
== END 2021-05-07 23:59 | disposition home or self-care (01) ==
LOC: EN 08:07 → AC 08:29
PROVIDERS: PCP Family Medicine; Referring Provider Family Medicine; Visit Provider Internal Medicine Gastroenterology
PROC: 0DJD8ZZ Inspection of Lower Intestinal Tract, Via Natural or Artificial Opening Endoscopic (ICD-10-PCS; CPT 45378; principal; 2021-05-07 09:25)
DX: Z12.11 Encounter for screening for malignant neoplasm of colon (principal); I48.0 Paroxysmal atrial fibrillation; C88.0 Waldenstrom macroglobulinemia; K57.30 Diverticulosis of large intestine without perforation or abscess without bleeding; K64.1 Second degree hemorrhoids; R93.3 Abnormal findings on diagnostic imaging of other parts of digestive tract; I10 Essential (primary) hypertension; I49.3 Ventricular premature depolarization; M19.90 Unspecified osteoarthritis, unspecified site; K21.9 Gastro-esophageal reflux disease without esophagitis; E78.00 Pure hypercholesterolemia, unspecified; E66.9 Obesity, unspecified; E07.9 Disorder of thyroid, unspecified; Z68.32 Body mass index [BMI] 32.0-32.9, adult; Z79.82 Long term (current) use of aspirin; Z79.01 Long term (current) use of anticoagulants; Z79.899 Other long term (current) drug therapy
CPT/HCPCS: 36416; 85610; J7120; J2405

== ENCOUNTER 2021-05-18 12:24 | Outpatient (RCR) | payer MEDICARE, OTHER, SELFPAY ==
[2021-01-30 01:56] VITALS: BMI 32.6
[2021-05-18 12:45] LABS: Prothrombin Time Fingerstick 23.2 SEC (11.9-14.4)
== END 2021-06-01 18:00 | disposition home or self-care (01) ==
LOC: MTLAB 12:24
PROVIDERS: Family Provider Family Medicine; PCP Family Medicine; Referring Provider Internal Medicine Cardiovascular Disease; Visit Provider Internal Medicine Cardiovascular Disease
DX: Z79.01 Long term (current) use of anticoagulants (principal)
CPT/HCPCS: 36416; 85610

== ENCOUNTER 2021-11-17 10:18 | Outpatient (RCR) | payer MEDICARE, OTHER, SELFPAY ==
[2021-06-02 01:41] VITALS: BMI 32.6
[2021-11-17 10:31] LABS: INR Fingerstick 3.4; Prothrombin Time Fingerstick 38.4 SEC (11.7-14.9)
== END 2021-11-29 03:24 | disposition home or self-care (01) ==
LOC: MTLAB 10:18
PROVIDERS: Family Provider Family Medicine; PCP Family Medicine; Referring Provider Internal Medicine Cardiovascular Disease; Visit Provider Internal Medicine Cardiovascular Disease
DX: Z79.01 Long term (current) use of anticoagulants (principal)
CPT/HCPCS: 36416; 85610

== ENCOUNTER → 2021-12-10 | Outpatient (CLI) | payer MEDICARE, OTHER, SELFPAY ==
--- NOTE | 2021-12-10 12:46 | ECHOD_ITS ---
Reason For Study: ATRIAL FIB-FLUTTER Procedure This was a 2D Doppler, Color Flow transthoracic echocardiogram. The study was technically difficult. Exam performed in department. Left Ventricle Normal LV size. Sigmoid septum. Left ventricular systolic function is normal. The estimated ejection fraction is 60 %. No regional wall motion abnormalities noted. Right Ventricle Normal RV size. Normal systolic function. Atria The left atrium is moderately enlarged. Normal right atrium. Mitral Valve Normal mitral valve. Mild (1+) eccentric mitral valve insufficiency. Tricuspid Valve Normal tricuspid valve. Mild (1+) tricuspid valve insufficiency. Pulmonary artery systolic pressure is 28 mmHg. Aortic Valve Trisinus/trileaflet aortic valve. Mild (1+) aortic valve insufficiency. Pulmonic Valve Normal pulmonic valve. Great Vessels Normal aortic root. The pulmonary artery is normal size. Normal inferior vena cava. Pericardium/Pleural No pericardial effusion. MMode/2D Measurements & Calculations LVIDd: 5.8 cm IVSd: 1.0 cm LVOT diam: 2.1 cm LVIDs: 4.1 cm LVPWd: 1.1 cm LVOT area: 3.4 cm2 RVDd: 3.8 cm FS: 30.6 % Ao root diam: 3.8 cm LAV(MOD-bp): 83.8 ml LVAd ap4: 34.9 cm2 LAV(MOD-bp) Indexed: 40.2 ml/m2 LVLd ap4: 7.9 cm LAV(MOD-sp2): 78.1 ml EDV(MOD-sp4): 126.7 ml LAV(MOD-sp4): 82.5 ml EDV(sp4-el): 131.2 ml LVAs ap4: 21.1 cm2 LVLs ap4: 7.0 cm ESV(MOD-sp4): 54.3 ml ESV(sp4-el): 53.9 ml EF(MOD-sp4): 57.1 % EF(sp4-el): 58.9 % SV(MOD-sp4): 72.4 ml SV(sp4-el): 77.2 ml LA A4 area: 25.5 cm2 LA dimension(2D): 4.4 cm RA A4 area: 17.2 cm2 Time Measurements MV dec time: 0.36 sec Doppler Measurements & Calculations MV E max colby: 50.6 cm/sec Lat Peak E' Colby: 9.5 cm/sec Med Peak E' Colby: 7.8 cm/sec MV A max colby: 40.7 cm/sec E/E' lat: 5.3 E/E' med: 6.5 MV E/A: 1.2 Ao V2 max: 182.5 cm/sec AI max colby: 430.0 cm/sec LV V1 max: 80.8 cm/sec Ao max P.4 mmHg AI max P.0 mmHg LV V1 max P.6 mmHg LV V1 mean P.3 mmHg MARINO(V,D): 1.5 cm2 AI dec slope: 191.8 cm/sec2 LV V1 mean: 53.3 cm/sec AI P1/2t: 656.7 msec LV V1 VTI: 17.8 cm SV(LVOT): 60.5 ml PA V2 max: 99.3 cm/sec TR max colby: 246.9 cm/sec TR max P.5 mmHg ECHO/Echo Complete Interpretation Summary Normal LV size. Sigmoid septum. Left ventricular systolic function is normal. The estimated ejection fraction is 60 %. The left atrium is moderately enlarged. Pulmonary artery systolic pressure is 28 mmHg. Ordering Physician: Orville Espinal Referring Physician: ANDRAE GARCIA Performed By: Radha Colbert RDCS
== END | disposition home or self-care (01) ==
LOC: PSN 12:46
PROVIDERS: PCP Family Medicine; Referring Provider Internal Medicine Cardiovascular Disease; Visit Provider Internal Medicine Cardiovascular Disease
DX: I48.0 Paroxysmal atrial fibrillation (principal)
CPT/HCPCS: 93225; 93226; 93306

== ENCOUNTER 2021-12-29 10:40 | Outpatient (RCR) | payer MEDICARE, OTHER, SELFPAY ==
[2021-11-29 03:24] VITALS: BMI 32.6
[2021-12-17 11:40] LABS: INR Fingerstick 1.7; Prothrombin Time Fingerstick 20.6 SEC (11.7-14.9)
[2021-12-29 10:55] LABS: INR Fingerstick 1.8; Prothrombin Time Fingerstick 21.3 SEC (11.7-14.9)
== END 2021-12-29 18:00 | disposition home or self-care (01) ==
LOC: MTLAB 10:40
PROVIDERS: Family Provider Family Medicine; PCP Family Medicine; Referring Provider Internal Medicine Cardiovascular Disease; Visit Provider Internal Medicine Cardiovascular Disease
DX: Z79.01 Long term (current) use of anticoagulants (principal)
CPT/HCPCS: 36416; 85610

== ENCOUNTER 2021-12-30 12:07 | Emergency (ER) | payer MEDICARE, OTHER, SELFPAY ==
[2021-12-30 12:08] VITALS: BP 133/81; PULSE 84; RESP 16; TEMP 36.6; O2SAT 97; BMI 31.9
--- NOTE | 2021-12-30 13:17 | RAD_ITS ---
STUDY: X-RAY - LUMBAR SPINE REASON FOR EXAM: Male, 86 years old. Injury/Pain TECHNIQUE: 3 view(s) of the lumbar spine were obtained. COMPARISON: MRI of the lumbar spine dated December 07, 2019 FINDINGS: Reidentification of previously treated compression deformity of L1 with kyphoplasty material. Reidentification of chronic compression deformity of L2 with greater than 50% loss of height. Mild L3 and L4 compression deformities are stable. Moderate chronic compression deformity of the L5 vertebral body reidentified. There is straightening of the normal lumbar lordosis. There is no substantial scoliosis the bony structures are diffusely demineralized. No visualized acute fracture. Mild endplate spurring is present throughout the lumbar spine. The disc spaces are mostly preserved with a few areas of minimal narrowing. There is atherosclerotic calcification of the abdominal aorta without a demonstrated aneurysm. RAD/Lumbar Spine 2 or 3 Views IMPRESSION: 1. 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 2. Degenerative changes of the spine, as detailed above. Electronically Signed: Boubacar Quiñones MD at 13:43 EDT ,
--- NOTE | 2021-12-30 14:01 | ED.VIS.BACK ---
HPI History of Present Illness Chief Complaint: Back Informant: patient Onset/Context/Timing Onset: Yesterday Context: Sudden Onset Injury: lifting Timing: Continuous Quality: Sharp Location: Lumbar Worsened by: improves with Movement Relieved by: Remaining Still Associated Symptoms Associated Symptoms: Negative for Numbness, Tingling, Radiation to Right Leg, Radiation to Left Leg, Fever, Abdominal Pain, Dysuria, Unable to Ambulate, Unable to Transfer, Urinary Retention, Urinary Incontinence, Constipation or Fecal Incontinence Narrative Narrative: Patient presents with low back pain that began yesterday. Patient states he was lifting his who had fallen. Patient states that he felt a pop in his back. Patient states the pain is sharp. Patient states pain is over the lower lumbar area. Patient denies any radiation of the pain. Patient states the pain is better whenever he is able to remain still in a position of comfort. Patient states it is worse with certain movements. Patient denies any paresthesias or weakness. Patient denies any abdominal pain. Patient denies any bowel or bladder changes. Patient denies any saddle anesthesia. 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 Multiple premature ventricular complexes Obesity (BMI 30.0-34.9) Paroxysmal atrial fibrillation Pneumonia Premature ventricular contractions 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 Shortness of breath on exertion Sleep apnea Thyroid disease Wears dentures Wears glasses Home Medications glucosamine HCl 500 mg-msm 83 mg-chondroitin 400 mg tablet 1 ea PO DAILY supplement 06/11/13 [History Last Taken 10/22/17] levothyroxine 125 mcg tablet 125 mcg PO DAILY hypothyroidism 06/11/13 [History Last Taken 05/07/21 07:00] multivitamin with folic acid 400 mcg tablet 1 tab PO DAILY supplement 06/11/13 [History Last Taken 10/22/17] omega-3 fatty acids-fish oil 300 mg-1,000 mg capsule 1,000 mg PO DAILY supplement 06/11/13 [History Last Taken 10/22/17] aspirin 81 mg tablet,delayed release 81 mg PO QHS health maintenance 02/14/14 [History Last Taken 05/03/21] nitroglycerin 0.4 mg sublingual tablet 0.4 mg sublingual Q5M PRN Chest Pain 07/12/14 [History Last Taken Unknown] potassium chloride 20 mEq tablet,extended release(part/cryst) 20 meq PO DAILY ##10 12/18/19 [Rx Last Taken Unknown] hydrochlorothiazide 25 mg tablet 25 mg PO DAILY diuretic #90 tabs 01/22/21 [Rx Last Taken Unknown] cholecalciferol (vitamin D3) 50 mcg (2,000 unit) capsule 50 mcg PO DAILY 02/09/21 [History Last Taken Unknown] mecobalamin (vitamin B12) 1,000 mcg chewable tablet 1,000 mcg PO DAILY 02/09/21 [History Last Taken Unknown] melatonin 10 mg capsule 10 mg PO HS PRN Sleep 02/09/21 [History Last Taken Unknown] polyethylene glycol 3350 17 gram oral powder packet (Miralax) 17 g PO DAILY 02/09/21 [History Last Taken Unknown] benazepril 20 mg tablet (Lotensin) 20 mg PO DAILY blood pressure #90 tabs 03/09/21 [Rx Last Taken 05/07/21 07:00] amlodipine 10 mg tablet See Rx Instructions .Route .COMPLEX #90 tabs 04/27/21 [Rx Last Taken 05/07/21 07:00] amiodarone 200 mg tablet 100 mg PO .COMPLEX Dose increased on 01/31/20 05/19/21 [History Last Taken Unknown] warfarin 2.5 mg tablet 2.5 mg PO MOWEFR #36 tabs 09/07/21 [Rx Last Taken Unknown] warfarin 5 mg tablet See Rx Instructions .Route .COMPLEX #84 TABLETS 09/07/21 [Rx Last Taken Unknown] metoprolol tartrate 25 mg tablet 12.5 mg PO BID #90 tabs 10/26/21 [Rx Last Taken Unknown] Allergy/AdvReac Type Severity Reaction Status Date / Time lidocaine Allergy Shortness Verified 12/30/21 12:10 of breath/PVC'S lovastatin Allergy Unknown Verified 12/30/21 12:10 niacin [From Advicor] Allergy Unknown Verified 12/30/21 12:10 prazosin HCl [From Minipress] Allergy Unknown Verified 12/30/21 12:10 Family History Father Cancer Mother Hypertension Myocardial infarction Sudden cardiac Arthritis Brother Myocardial infarction valve replacement Sister Hypertension Sister Hypertension Surgical History History of cardiac catheterization (06/2018) History of cardioversion (01/31/20) History of coronary artery stent placement (06/2005) History of kyphoplasty History of laparoscopic cholecystectomy History of left heart catheterization (07/03/18) History of shoulder surgery History of total left knee replacement (TKR) (06/2013) Hx of bladder repair surgery Hx of hernia repair Hx of tonsillectomy Hx of umbilical hernia repair Social History Smoking Status: Never smoker alcohol intake: never substance use type: does not use caffeine: Yes Type: coffee what type of physical activity do you participate in: none seatbelt use: always do you feel safe at home: Yes ROS ROS ED Constitutional Constitutional ED: Denies chills or fever(s) Eyes Eyes: Denies blurry vision or change in vision ENT ENT ED: Denies rhinorrhea or sore throat Cardiovascular Cardiovascular: Denies chest pain or palpitations Respiratory/Chest Respiratory/Chest: Denies cough or dyspnea Gastrointestinal Gastrointestinal: Denies nausea or vomiting Genitourinary Genitourinary ED: Denies dysuria or hematuria Musculoskeletal Musculoskeletal: Reports back pain; Denies neck pain Integumentary Denies abscess or rash Neurologic Neurologic: Denies headache(s) or weakness Allergic/Immunologic Allergic/Immunologic ED: Denies mouth swelling or urticaria EXAM Physical Exam Const Vital Signs: 12/30/21 12:08 Temperature 97.9 F Temperature Source Temporal Pulse Rate 84 Respiratory Rate 16 Blood Pressure 133/81 H Blood Pressure Mean 98 Pulse Ox 97 Oxygen Delivery Method Room Air Positive well nourished, well developed and obese General Appearance ED: well developed and NAD Nutritional Appearance: obese HEENT Reports moist mucous membranes Neck supple and no JVD Back/Spine Back/Spine Narrative: There is tenderness over the lower lumbar spine and paraspinal muscles. There is no bony crepitance or step-off. Range of motion was slightly limited in all motions of the lumbar spines are negative bilaterally. Strength is 5/5 bilaterally in the lower extremities. There are no sensory deficits noted. Deep tendon reflexes are 2/4 bilaterally in the lower extremities. Lumbar Spine / Lower Back: ROM limited and straight leg raise negative bilaterally Extremity normal to inspection General Extremety ED: Negative for edema General Extremity: Negative for edema Neuro oriented x3 and no sensory deficits noted Sensorium / Orientation: alert Motor Exam: strength 5/5 throughout Deep Tendon Reflexes: Rt Patellar (L4): 2+, Lt Patellar (L4): 2+, Rt Ankle (S1): 2+ and Lt Ankle (S1): 2+ Deep Tendon Reflexes Back: Rt Patellar (L4): 2+, Lt Patellar (L4): 2+, Rt Ankle (S1): 2+ and Lt Ankle (S1): 2+ Psych mental status grossly normal Skin no rashes or lesions noted MDM MDM MDM Narrative Medical decision making narrative: Patient states he is unable to tolerate narcotic pain medication. X-rays of the lumbar spine were obtained. There are 3 views. On my interpretation, there are multiple stable chronic compression deformities. There is no acute fracture or spondylolisthesis. Radiologist also interpreted the x-rays and agrees. Patient was advised of his findings. Patient was instructed to use ice to the area. Patient was instructed to take Tylenol as needed for pain. Patient was instructed to follow-up with his primary care physician in 5 to 7 days. Patient states he also sees Dr. Garcia for prior back pain and compression fractures. Patient was instructed to return if worse in any way. Patient and family understood and were agreeable with the plan. All questions were answered. Radiography X-Ray: LS SPine, No Fracture, Normal Bony Alignment and DJD Diagnostic Testing: Clinical Impression(s) from Imaging Studies Lumbar Spine X-Ray 12/30/21 13:17 IMPRESSION: 1. 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 2. Degenerative changes of the spine, as detailed above. Electronically Signed: Boubacar Quiñones MD at 13:43 EDT Reading Location ID and State: [address] [place] [address] , Service support , Discharge Plan Triage Chief Complaint: Back ED Provider: Asa Amaral Dx/Rx/DC Orders Clinical Impression: Acute low back pain, Essential (primary) hypertension Instructions: ED Back and Neck Pain, General Prescriptions: No Action amiodarone 200 mg tablet 100 mg PO .COMPLEX Rx Instructions: 100 mg PO daily; mecobalamin (vitamin B12) 1,000 mcg tablet,chewable 1,000 mcg PO DAILY cholecalciferol (vitamin D3) 50 mcg (2,000 unit) capsule 50 mcg PO DAILY melatonin 10 mg capsule 10 mg PO HS PRN (Reason: Sleep) polyethylene glycol 3350 [Miralax] 17 gram powder in packet 17 g PO DAILY levothyroxine 125 MCG tablet 125 mcg PO DAILY Label Comments: Low thyroid omega-3 fatty acids-fish oil 1 EACH capsule 1,000 mg PO DAILY Label Comments: Supplement multivitamin with folic acid 1 TABLET tablet 1 tab PO DAILY Label Comments: SUPPLEMENT glucosamine [id number] 1 EACH tablet 1 ea PO DAILY Label Comments: Supplement aspirin 81 MG tablet 81 mg PO QHS Label Comments: Blood thinner for heart health nitroglycerin 0.4 MG tablet 0.4 mg SUBLINGUAL Q5M PRN (Reason: Chest Pain) potassium chloride 20 MEQ tablet,ER particles/crystals 20 meq PO DAILY Qty: 10 0RF hydrochlorothiazide 25 mg tablet 25 mg PO DAILY Qty: 90 3RF benazepril [Lotensin] 20 mg tablet 20 mg PO DAILY Qty: 90 3RF amlodipine 10 mg tablet See Rx Instructions .ROUTE .COMPLEX Qty: 90 3RF Dose Instruction: Take 1 tablet by mouth once daily for blood pressure Rx Instructions: Take 1 tablet by mouth once daily for blood pressure warfarin 2.5 mg tablet 2.5 mg PO Qty: 36 3RF Protocol: Dose Management Condition: Tuesday Dose/Route: 2.5 mg Instruction: 1 x 2.5 mg tablet Condition: Tuesday Dose/Route: 5 mg Instruction: 1 x 5 mg tablet Condition: Tuesday Dose/Route: 5 mg Instruction: 1 x 5 mg tablet Condition: Tuesday Dose/Route: 5 mg Instruction: 1 x 5 mg tablet Condition: Dose/Route: 5 mg Instruction: 1 x 5 mg tablet Condition: Tuesday Dose/Route: 5 mg Instruction: 1 x 5 mg tablet Condition: Tuesday Dose/Route: 2.5 mg Instruction: 1 x 2.5 mg tablet Protocol Text: Adjustment Start Date: Tuesday12/29/21 INR Value: 1.8 INR Date: 12/29/21 Recheck Date: 01/12/22 Rx Instructions: 5mg on all other days warfarin 5 mg tablet See Rx Instructions .ROUTE .COMPLEX Qty: 84 0RF Protocol: Dose Management Condition: Tuesday Dose/Route: 2.5 mg Instruction: 1 x 2.5 mg tablet Condition: Tuesday Dose/Route: 5 mg Instruction: 1 x 5 mg tablet Condition: Tuesday Dose/Route: 5 mg Instruction: 1 x 5 mg tablet Condition: Tuesday Dose/Route: 5 mg Instruction: 1 x 5 mg tablet Condition: Dose/Route: 5 mg Instruction: 1 x 5 mg tablet Condition: Tuesday Dose/Route: 5 mg Instruction: 1 x 5 mg tablet Condition: Tuesday Dose/Route: 2.5 mg Instruction: 1 x 2.5 mg tablet Protocol Text: Adjustment Start Date: Tuesday12/29/21 INR Value: 1.8 INR Date: 12/29/21 Recheck Date: 01/12/22 Dose Instruction: TAKE 1 TABLET BY MOUTH ONCE DAILY EXCEPT TUESDAY Rx Instructions: TAKE 1 TABLET BY MOUTH ONCE DAILY EXCEPT TUESDAY metoprolol tartrate 25 mg tablet 12.5 mg PO BID Qty: 90 3RF Primary Care Provider: Parish Marshall Referrals: Parish Marshall DO [Primary Care Provider] - 5-7 Days Disposition Disposition: Home, Self Care
== END 2021-12-30 14:21 | disposition home or self-care (01) ==
PROVIDERS: Emergency Provider Emergency Medicine; PCP Family Medicine; Visit Provider Emergency Medicine
DX: M54.50 Low back pain, unspecified (principal); I25.10 Atherosclerotic heart disease of native coronary artery without angina pectoris; I10 Essential (primary) hypertension; E78.5 Hyperlipidemia, unspecified; E66.9 Obesity, unspecified
CPT/HCPCS: 72100; 99282

== ENCOUNTER 2022-01-26 08:36 | Outpatient (RCR) | payer MEDICARE, OTHER, SELFPAY ==
[2021-12-31 00:58] VITALS: BMI 32.6
[2022-01-26 08:45] LABS: INR Fingerstick 2.2; Prothrombin Time Fingerstick 25.7 SEC (11.7-14.9)
== END 2022-01-26 18:00 | disposition home or self-care (01) ==
LOC: MTLAB 08:36
PROVIDERS: Family Provider Family Medicine; PCP Family Medicine; Referring Provider Internal Medicine Cardiovascular Disease; Visit Provider Internal Medicine Cardiovascular Disease
DX: Z79.01 Long term (current) use of anticoagulants (principal)
CPT/HCPCS: 36416; 85610

== ENCOUNTER 2022-01-29 09:55 | Day surgery (SDC) | payer MEDICARE, OTHER, SELFPAY ==
--- NOTE | 2022-01-29 10:25 | RAD_ITS ---
CLINICAL HISTORY: Male, 86 years old. L5 fracture. PROCEDURE: KYPHOPLASTY - L5 vertebrae. 7 images were submitted. Intraoperative imaging provided for kyphoplasty of the L5 vertebrae. RAD/Lumbar Spine 2 or 3 Views IMPRESSION: Intraoperative imaging provided for kyphoplasty of the L5 vertebrae. Electronically Signed: Osman Donohue MD at 13:42 EDT ,
[2022-01-29 10:29] VITALS: BP 157/99; PULSE 96; RESP 18; TEMP 36.2; O2SAT 97; BMI 31.8
[2022-01-29] MEDS: Lactated Ringers 1,000 ML 15 ML IV (10:38)
[2022-01-29] MEDS: Cefazolin 2 GM in 0.9% Normal Saline 100 ML IV (12:02)
[2022-01-29 13:17] VITALS: BP 123/86; BP 157/99; PULSE 70; RESP 18; TEMP 36.8; O2SAT 98
[2022-01-29 13:31] VITALS: BP 134/90; BP 157/99; PULSE 76; RESP 12; O2SAT 98
[2022-01-29 13:32] VITALS: BP 142/96; BP 157/99; PULSE 67; RESP 18; O2SAT 98
[2022-01-29 14:02] VITALS: BP 148/90; BP 157/99; PULSE 71; RESP 18; TEMP 36.1; O2SAT 98
[2022-01-29 15:12] VITALS: BP 141/96; BP 157/99; PULSE 70; RESP 16; TEMP 36.4; O2SAT 94
[2022-02-01 16:43] LABS: INR Fingerstick 1.1; Prothrombin Time Fingerstick 13.6 SEC (11.7-14.9)
[2022-02-03 08:35] LABS: INR Fingerstick 1.1; Prothrombin Time Fingerstick 13.6 SEC (11.7-14.9)
== END 2022-01-29 15:16 | disposition home or self-care (01) ==
LOC: SDC 09:56 → AC 09:57
PROVIDERS: PCP Family Medicine; Referring Provider Anesthesiology Pain Medicine; Visit Provider Anesthesiology Pain Medicine
PROC: (CPT 22514; principal; 2022-01-29 11:10)
DX: M80.08XA Age-related osteoporosis with current pathological fracture, vertebra(e), initial encounter for fracture (principal); M54.50 Low back pain, unspecified; I10 Essential (primary) hypertension; I25.10 Atherosclerotic heart disease of native coronary artery without angina pectoris; E78.5 Hyperlipidemia, unspecified; Z96.652 Presence of left artificial knee joint; E03.9 Hypothyroidism, unspecified
CPT/HCPCS: 22514; 01942; 36416; 72100; 76000; 85610; J7120; J2405

== ENCOUNTER 2022-02-19 11:17 | Outpatient (RCR) | payer MEDICARE, OTHER, SELFPAY ==
[2022-01-30 01:47] VITALS: BMI 32.6
[2022-02-19 12:11] LABS: International Normalized Ratio 2.6; Prothrombin Time (Protime)PT. 27.8 SECONDS (11.7-14.9)
[2022-02-19 12:27] LABS: BNP,B-Type NATRIURETIC PEPTIDE 175.2 pg/mL (0-100)
[2022-02-19 12:39] LABS: Anion Gap 9 (5-15); BUN 20 mg/dL (7-18); BUN/Creat Ratio 12.5 RATIO (10-20); Calcium,Total 10.1 mg/dL (8.5-10.1); Chloride 104 mmol/L (98-107); EST Glomerular Filtration Rate 44 mL/min (>60); Est Glom Filt Rate - Afr Amer 53 mL/min (>60); Glucose 126 mg/dL (74-106); Potassium 3.8 mmol/L (3.5-5.1); Sodium Level 139 mmol/L (136-145); Thyroid Stim Hormone (TSH) 8.55 uIU/mL (0.358-3.74)
== END 2022-02-19 18:00 | disposition home or self-care (01) ==
LOC: LAB 11:17
PROVIDERS: Nurse Practitioner Family; Physician Assistant Medical; Family Provider Family Medicine; PCP Family Medicine; Referring Provider Internal Medicine Cardiovascular Disease; Visit Provider Internal Medicine Cardiovascular Disease
DX: Z79.01 Long term (current) use of anticoagulants (principal); R06.09 Other forms of dyspnea; I48.0 Paroxysmal atrial fibrillation
CPT/HCPCS: 36415; 80048; 83880; 84443; 85610

== ENCOUNTER 2022-02-20 13:20 | Emergency (ER) | payer MEDICARE, OTHER, SELFPAY ==
[2022-02-20 13:22] VITALS: BP 150/92; PULSE 95; RESP 11; TEMP 36.3; O2SAT 95; BMI 32.1
--- NOTE | 2022-02-20 13:46 | EKG12_ITS ---
Test Reason : CHEST PAIN Blood Pressure : / mmHG Vent. Rate : 088 BPM Atrial Rate : 000 BPM P-R Int : 000 ms QRS Dur : 132 ms QT Int : 416 ms P-R-T Axes : 000 -81 063 degrees QTc Int : 503 ms Atrial fibrillation Left axis deviation Non-specific intra-ventricular conduction block Inferior infarct , age undetermined Abnormal ECG Confirmed by YAYA CARDENAS, ALVARO ([id number]), electronic news gathering editor CONSTANCE SCHAEFER ([id number]) on 02/23/2022 1:29:44 PM Referred By: VADIM Confirmed By:ALVARO JAVIER MD
--- NOTE | 2022-02-20 13:48 | ED.VIS.CHEST ---
HPI History of Present Illness Chief Complaint: Chest Pain Informant: patient and family Narrative Narrative: Presents today right-sided chest pain rating to his shoulder blade overnight. Is currently subsiding. He has been short of breath for the past month denies orthopnea. History of atrial fibrillation on warfarin and metoprolol. History of coronary stent back in 2005. He is on aspirin and warfarin therapy. Denies cough. Reports follow-up with his cardiology team yesterday had his metoprolol increased. Reports heart rate is normally in the 50s. Denies vomiting diarrhea. Intermittent chest discomfort. Reviewing records from cardiology report coronary stent 2005. Echocardiogram November 2021 EF 60%. Heart cath 2018 had 50% blockage LAD nonobstructive that did not required any stenting at that time. Also reports previous paroxysmal atrial fibrillation cardioverted back in 2019 in the ED. Apparently went into atrial fibrillation at some point therefore metoprolol increased to 25 mg twice a day from 12.5 mg twice a day. Noted plans of possible future increase in his amiodarone to help with his atrial fibrillation. [facility] Medical History Ambulates with cane Anemia Arthritis Atherosclerotic heart disease of [place] coronary artery without angina pectoris Back pain Bleeding disorder Cancer Cardiology follow-up encounter Cataracts, bilateral Easy bruising Essential (primary) hypertension GERD (gastroesophageal reflux disease) History of back problems History of echocardiogram History of edema History of gallstones History of Holter monitoring History of ulceration HLD (hyperlipidemia) Hx of fracture of pelvis Iatrogenic hypothyroidism Injury of back group home current use of anticoagulant Multiple premature ventricular complexes Obesity (BMI 30.0-34.9) Paroxysmal atrial fibrillation Pneumonia Premature ventricular contractions 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 Shortness of breath on exertion Sleep apnea Thyroid disease Wears dentures Wears glasses Home Medications levothyroxine 125 mcg tablet 125 mcg PO DAILY hypothyroidism 06/11/13 [History Last Taken 05/07/21 07:00] multivitamin with folic acid 400 mcg tablet 1 tab PO DAILY supplement 06/11/13 [History Last Taken 10/22/17] aspirin 81 mg tablet,delayed release 81 mg PO QHS health maintenance 02/14/14 [History Last Taken 05/03/21] nitroglycerin 0.4 mg sublingual tablet 0.4 mg sublingual Q5M PRN Chest Pain 07/12/14 [History Last Taken Unknown] hydrochlorothiazide 25 mg tablet 25 mg PO DAILY diuretic #90 tabs 01/22/21 [Rx Last Taken Unknown] cholecalciferol (vitamin D3) 50 mcg (2,000 unit) capsule 50 mcg PO DAILY 02/09/21 [History Last Taken Unknown] mecobalamin (vitamin B12) 1,000 mcg chewable tablet 1,000 mcg PO DAILY 02/09/21 [History Last Taken Unknown] melatonin 10 mg capsule 10 mg PO HS PRN Sleep 02/09/21 [History Last Taken Unknown] benazepril 20 mg tablet (Lotensin) 20 mg PO DAILY blood pressure #90 tabs 03/09/21 [Rx Last Taken 05/07/21 07:00] amlodipine 10 mg tablet See Rx Instructions .Route .COMPLEX #90 tabs 04/27/21 [Rx Last Taken 05/07/21 07:00] warfarin 2.5 mg tablet 2.5 mg PO MOWEFR #36 tabs 09/07/21 [Rx Last Taken 01/25/22] warfarin 5 mg tablet See Rx Instructions .Route .COMPLEX #84 TABLETS 01/18/22 [Rx Last Taken 01/24/22] amiodarone 200 mg tablet 200 mg PO DAILY Check with primary doctor 01/27/22 [History Last Taken Unknown] calcium carbonate 600 mg-vitamin D3 5 mcg (200 unit) tablet 1 tab PO QODAY 01/27/22 [History Last Taken Unknown] furosemide 40 mg tablet (Lasix) 40 mg PO .PRN PRN edema, SOB #30 tabs 02/19/22 [Rx Last Taken Unknown] metoprolol tartrate 25 mg tablet 25 mg PO BID #90 tabs 02/19/22 [Rx Last Taken Unknown] Allergy/AdvReac Type Severity Reaction Status Date / Time lidocaine Allergy Shortness Verified 02/20/22 13:24 of breath/PVC'S Family History Father Cancer Mother Hypertension Myocardial infarction Sudden cardiac Arthritis Brother Myocardial infarction valve replacement Sister Hypertension Sister Hypertension Surgical History History of cardiac catheterization (06/2018) History of cardioversion (01/31/20) History of coronary artery stent placement (06/2005) History of kyphoplasty History of laparoscopic cholecystectomy History of left heart catheterization (07/03/18) History of shoulder surgery History of total left knee replacement (TKR) (06/2013) Hx of bladder repair surgery Hx of colonoscopy Hx of hernia repair Hx of tonsillectomy Hx of umbilical hernia repair Social History Smoking Status: Never smoker alcohol intake: never substance use type: does not use caffeine: Yes Type: coffee what type of physical activity do you participate in: none seatbelt use: always do you feel safe at home: Yes ROS ROS ED Constitutional Constitutional ED: Denies chills, fever(s) or sweats Eyes Eyes: Denies change in vision ENT ENT ED: Denies dysphagia or sore throat Cardiovascular Cardiovascular: Reports chest pain; Denies leg edema, palpitations or racing heartbeat Respiratory/Chest Respiratory/Chest: Reports dyspnea; Denies cough or dyspnea on exertion Gastrointestinal Gastrointestinal: Denies abdominal pain, diarrhea, nausea or vomiting Genitourinary Genitourinary ED: Denies dysuria, hematuria or urinary frequency Musculoskeletal Musculoskeletal: Denies back pain, extremity pain or neck pain Integumentary Denies rash or wounds Neurologic Neurologic: Denies headache(s), paresthesias or weakness EXAM Physical Exam Const Vital Signs: 02/20/22 13:22 02/20/22 13:50 02/20/22 13:30 Temperature 97.3 F L Temperature Source Temporal Pulse Rate 95 Respiratory Rate 11 L Respiratory Effort Normal Non-Labored Blood Pressure 150/92 H Blood Pressure Mean 111 Pulse Ox 95 Oxygen Delivery Method Room Air Room Air Positive well nourished and well developed General Appearance ED: well developed and NAD HEENT Reports moist mucous membranes normocephalic and atraumatic Eyes PERRL, EOMs intact bilaterally and conjunctivae normal General Eye ED: Yes normal appearance of both eyes Neck no lymphadenopathy and supple General: Negative for tenderness Chest Wall Chest: Negative for tenderness Resp normal respiratory effort and normal air movement Effort and Inspection: symmetric chest movement; Negative for respiratory distress Cardio regular rate and no murmurs Rhythm: abnormal rhythm Peripheral Pulses: pulses 2+ throughout GI normal to inspection, nondistended, normoactive bowel sounds and non-tender Palpation: Negative for guarding or rebound tenderness present Back/Spine no CVA tenderness and no thoracic nor lumbar tenderness Extremity normal to inspection Extremity Narrative: Very minimal lower extremity edema. General Extremety ED: Yes edema; Negative for tenderness General Extremity: edema Neuro oriented x3 and no sensory deficits noted Sensorium / Orientation: awake and alert Skin no rashes or lesions noted and no wounds MDM MDM MDM Narrative Medical decision making narrative: Patient right-sided chest pains no cough no orthopnea. Very minimal leg swelling. Work-up initiated cardiac work-up troponin x2 negative troponin rate controlled atrial fibrillation. Hemoglobin 14.2. INR therapeutic 3.0. Creatinine 1.5 stable from previous. Vital signs remained stable symptoms subsided during monitoring. After evaluating his cardiology visit concern likely his A. fib causing his dyspnea. He stable in the 50s and normal rhythm. There is plan for outpatient further treatment. Vitals remained stable will call cardiology office for further treatment if needed. Return precautions. All questions were answered. Lab Data Attestation: I reviewed the patient's lab results. Labs: Laboratory Results - last 24 hr 02/20/22 02/20/22 02/20/22 13:25 13:25 13:25 WBC 9.3 RBC 4.47 L Hgb 14.2 Hct 42.1 MCV 94.2 H MCH 31.8 MCHC 33.7 RDW Std Deviation 47.8 H RDW Coeff of Roger 13.9 Plt Count 366 MPV 9.3 Immature Gran % (Auto) 0.300 Neut % (Auto) 55.6 Lymph % (Auto) 32.8 [place] % (Auto) 9.3 Eos % (Auto) 1.6 Baso % (Auto) 0.4 Absolute Neuts (auto) 5.2 Absolute Lymphs (auto) 3.05 Nucleated RBC % 0 PT 30.7 H INR 3.0 Sodium 138 Potassium 3.8 Chloride 104 Carbon Dioxide 25.0 Anion Gap 9 BUN 21 H Creatinine 1.52 H Estim Creat Clear Calc 33.13 Est GFR (MDRD) Af Amer 56 L Est GFR (MDRD) Non-Af 46 L BUN/Creatinine Ratio 13.8 Glucose 109 H Calcium 9.8 Troponin I High Sens 18 B-Natriuretic Peptide 02/20/22 02/20/22 13:25 16:10 WBC RBC Hgb Hct MCV MCH MCHC RDW Std Deviation RDW Coeff of Roger Plt Count MPV Immature Gran % (Auto) Neut % (Auto) Lymph % (Auto) [place] % (Auto) Eos % (Auto) Baso % (Auto) Absolute Neuts (auto) Absolute Lymphs (auto) Nucleated RBC % PT INR Sodium Potassium Chloride Carbon Dioxide Anion Gap BUN Creatinine Estim Creat Clear Calc Est GFR (MDRD) Af Amer Est GFR (MDRD) Non-Af BUN/Creatinine Ratio Glucose Calcium Troponin I High Sens 19 B-Natriuretic Peptide 182.7 H Radiography Diagnostic Testing: Clinical Impression(s) from Imaging Studies Chest X-Ray 02/20/22 13:54 IMPRESSION: Chronic interstitial changes, no superimposed acute pulmonary process Electronically Signed: Ishaan Liu MD at 14:31 EDT Reading Location ID and State: [facility] / [place] , Service support , EKG Initial EKG: Attestation: I personally reviewed and interpreted this EKG as follows: Comments: Rate controlled atrial fibrillation rate of 88, no ST or T wave changes. Right bundle branch block. 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, Atrial fibrillation, controlled, CKD (chronic kidney disease) Instructions: AFib Dc, ED Chest Pain, Uncertain Cause Prescriptions: No Action mecobalamin (vitamin B12) 1,000 mcg tablet,chewable 1,000 mcg PO DAILY cholecalciferol (vitamin D3) 50 mcg (2,000 unit) capsule 50 mcg PO DAILY melatonin 10 mg capsule 10 mg PO HS PRN (Reason: Sleep) metoprolol tartrate 25 mg tablet 25 mg PO BID Qty: 90 3RF furosemide [Lasix] 40 mg tablet 40 mg PO .PRN PRN (Reason: edema, SOB) Qty: 30 0RF levothyroxine 125 MCG tablet 125 mcg PO DAILY Label Comments: Low thyroid multivitamin with folic acid 1 TABLET tablet 1 tab PO DAILY Label Comments: SUPPLEMENT aspirin 81 MG tablet 81 mg PO QHS Label Comments: Blood thinner for heart health nitroglycerin 0.4 MG tablet 0.4 mg SUBLINGUAL Q5M PRN (Reason: Chest Pain) amiodarone 200 mg tablet 200 mg PO DAILY Rx Instructions: 100 mg PO daily; calcium carbonate-vitamin D3 [Calcium + D] 600 mg-5 mcg (200 unit) Tablet 1 tab PO QODAY hydrochlorothiazide 25 mg tablet 25 mg PO DAILY Qty: 90 3RF benazepril [Lotensin] 20 mg tablet 20 mg PO DAILY Qty: 90 3RF amlodipine 10 mg tablet See Rx Instructions .ROUTE .COMPLEX Qty: 90 3RF Dose Instruction: Take 1 tablet by mouth once daily for blood pressure Rx Instructions: Take 1 tablet by mouth once daily for blood pressure warfarin 2.5 mg tablet 2.5 mg PO Qty: 36 3RF Protocol: Dose Management Condition: Tuesday Dose/Route: 2.5 mg Instruction: 1 x 2.5 mg tablet Condition: Tuesday Dose/Route: 5 mg Instruction: 1 x 5 mg tablet Condition: Tuesday Dose/Route: 5 mg Instruction: 1 x 5 mg tablet Condition: Tuesday Dose/Route: 5 mg Instruction: 1 x 5 mg tablet Condition: Dose/Route: 5 mg Instruction: 1 x 5 mg tablet Condition: Tuesday Dose/Route: 5 mg Instruction: 1 x 5 mg tablet Condition: Tuesday Dose/Route: 2.5 mg Instruction: 1 x 2.5 mg tablet Protocol Text: Adjustment Start Date: Tuesday02/19/22 INR Value: 2.6 INR Date: 02/19/22 Recheck Date: 03/05/22 Rx Instructions: 5mg on all other days warfarin 5 mg tablet See Rx Instructions .ROUTE .COMPLEX Qty: 84 0RF Protocol: Dose Management Condition: Tuesday Dose/Route: 2.5 mg Instruction: 1 x 2.5 mg tablet Condition: Tuesday Dose/Route: 5 mg Instruction: 1 x 5 mg tablet Condition: Tuesday Dose/Route: 5 mg Instruction: 1 x 5 mg tablet Condition: Tuesday Dose/Route: 5 mg Instruction: 1 x 5 mg tablet Condition: Dose/Route: 5 mg Instruction: 1 x 5 mg tablet Condition: Tuesday Dose/Route: 5 mg Instruction: 1 x 5 mg tablet Condition: Tuesday Dose/Route: 2.5 mg Instruction: 1 x 2.5 mg tablet Protocol Text: Adjustment Start Date: Tuesday02/19/22 INR Value: 2.6 INR Date: 02/19/22 Recheck Date: 03/05/22 Dose Instruction: TAKE 1 TABLET BY MOUTH ONCE DAILY EXCEPT TUESDAY Rx Instructions: TAKE 1 TABLET BY MOUTH ONCE DAILY EXCEPT TUESDAY Primary Care Provider: Parish Marshall Referrals: Orville Espinal MD [Med Staff - Active Staff] - 3-5 Days Parish Marshall DO [Primary Care Provider] - Activity Restrictions/Additional Instructions: Cardiac work-up negative EKG rate controlled A. fib. INR 3.0. Chest x-ray negative. Continue your home meds. Discussed with cardiology after the weekend for further potential treatment for your A. fib return seen on your last doctors visit. Disposition Disposition: Home, Self Care
[2022-02-20 13:54] LABS: Absolute Lymphocyte Count 3.05 X10^3/uL (0.83-4.51); Absolute Neutrophil Count 5.2 X10^3/uL (2.0-7.7); Basophil# 0.04 X10^3/uL; Basophil% 0.4 % (0-1); Eosinophil# 0.15 X10^3/uL; Eosinophils% 1.6 % (0-5); Hematocrit 42.1 % (40-54); Hemoglobin 14.2 g/dL (13.0-16.5); Lymphocyte # 3.05 X10^3/ul (0.83-4.51); Lymphocyte % 32.8 % (19-41); Mean Corp Hgb Conc 33.7 g/dL (32-36); Mean Corpuscular Hgb 31.8 pg (27.0-32.0); Mean Corpuscular Volume 94.2 fL (80-94); Mean Platelet Vol. 9.3 fl (6.2-12.0); Monocyte# 0.87 X10^3/uL; Monocyte% 9.3 % (0-10); NRBC Flagged by Analyzer 0 % (0-5); Neutrophil # 5.17 X10^3/uL (2.7-7.7); Neutrophil % 55.6 % (47-70); Platelet Count 366 K/mm3 (150-450); RBC Distribution Width CV 13.9 % (11.6-14.6); RBC Distribution Width SD 47.8 fl (35.1-43.9); Red Blood Count 4.47 M/mm3 (4.6-6.2); White Blood Count 9.3 K/mm3 (4.4-11.0)
--- NOTE | 2022-02-20 13:54 | RAD_ITS ---
STUDY: X-RAY CHEST REASON FOR EXAM: Male, 86 years old. Substernal chest pain TECHNIQUE: PA and lateral views of the chest. COMPARISON: None. FINDINGS: EKG leads overlie the chest Chronic interstitial changes in both lung campos without a superimposed acute pulmonary process. There is no demonstrated pleural abnormality. Normal size heart. Normal mediastinum and zackery. Normal visualized pulmonary arteries. There is atherosclerotic calcification of the aortic arch with tortuosity. There are diffuse degenerative changes of the visualized thoracic spine. There is degenerative osteoarthritis of the bilateral shoulders. There is no demonstrated abnormality of the visualized soft tissue structures of the upper abdomen. RAD/Chest PA and Lateral IMPRESSION: Chronic interstitial changes, no superimposed acute pulmonary process Electronically Signed: Ishaan Liu MD at 14:31 EDT ,
[2022-02-20 14:00] VITALS: BP 145/89; PULSE 87; RESP 18; O2SAT 96
[2022-02-20 14:05] LABS: Prothrombin Time (Protime)PT. 30.7 SECONDS (11.7-14.9)
[2022-02-20 14:14] LABS: Anion Gap 9 (5-15); BUN 21 mg/dL (7-18); BUN/Creat Ratio 13.8 RATIO (10-20); Calcium,Total 9.8 mg/dL (8.5-10.1); Chloride 104 mmol/L (98-107); Creatinine, Serum 1.52 mg/dL (0.70-1.30); EST Glomerular Filtration Rate 46 mL/min (>60); Est Glom Filt Rate - Afr Amer 56 mL/min (>60); Estimated Creatinine Clearance 33.13 ml/min; Glucose 109 mg/dL (74-106); Potassium 3.8 mmol/L (3.5-5.1); Sodium Level 138 mmol/L (136-145); Troponin-I HS (w/2H Reflex) 18 pg/mL (3.0-78.0)
[2022-02-20 14:19] LABS: BNP,B-Type NATRIURETIC PEPTIDE 182.7 pg/mL (0-100)
[2022-02-20 15:00] VITALS: BP 142/87; PULSE 85; RESP 16; O2SAT 97
[2022-02-20 15:51] LABS: Reflex Troponin-HS? (from REC) Y
[2022-02-20 16:00] VITALS: BP 151/90; PULSE 82; RESP 18; O2SAT 98
[2022-02-20 16:32] LABS: Troponin-I HS 19 pg/mL (3.0-78.0)
[2022-02-20 17:00] VITALS: BP 141/80; PULSE 80; RESP 18; O2SAT 97
== END 2022-02-20 17:13 | disposition home or self-care (01) ==
PROVIDERS: Emergency Provider Emergency Medicine; PCP Family Medicine; Visit Provider Emergency Medicine
DX: I48.91 Unspecified atrial fibrillation (principal); M79.89 Other specified soft tissue disorders; N18.9 Chronic kidney disease, unspecified; I25.10 Atherosclerotic heart disease of native coronary artery without angina pectoris; E78.5 Hyperlipidemia, unspecified; I12.9 Hypertensive chronic kidney disease with stage 1 through stage 4 chronic kidney disease, or unspecified chronic kidney disease; R07.9 Chest pain, unspecified; Z95.5 Presence of coronary angioplasty implant and graft; Z79.01 Long term (current) use of anticoagulants; R06.02 Shortness of breath
CPT/HCPCS: 71046; 80048; 83880; 84484; 85025; 85610; 93005; 99284; A4216

== ENCOUNTER 2022-02-21 00:49 | Emergency (ER) | payer MEDICARE, OTHER, SELFPAY ==
[2022-02-21] VITALS (13 sets, daily range): BP systolic 81–164; BP diastolic 55–103; PULSE 44–97; RESP 11–18; TEMP 36.2–36.8; O2SAT 25–99; BMI 31.8
--- NOTE | 2022-02-21 01:14 | EKG12_ITS ---
Test Reason : CP Blood Pressure : / mmHG Vent. Rate : 104 BPM Atrial Rate : 125 BPM P-R Int : 000 ms QRS Dur : 138 ms QT Int : 404 ms P-R-T Axes : 000 -73 060 degrees QTc Int : 531 ms Atrial fibrillation Left axis deviation Non-specific intra-ventricular conduction block Inferior infarct , age undetermined Abnormal ECG Confirmed by ERAN CARDENAS, ERIN ([id number]), image editor CONSTANCE SCHAEFER ([id number]) on 02/22/2022 9:49:16 AM Referred By: JORDON Confirmed By:ERIN BARILLAS MD
--- NOTE | 2022-02-21 01:14 | CT_ITS ---
STUDY: CTA CHEST REASON FOR EXAM: Male, 86 years old. chest pain RADIATION DOSAGE (If Supplied By Facility): CTDIvol = ( 13.85 ) mGy, DLP = ( 524.32 ) mGycm TECHNIQUE: The examination was performed with the intravenous administration of 100 mL Isovue-370. Post-processing of the angiographic images was performed, with multiplanar reformation and maximum intensity projections.. Individualized dose optimization techniques were used for this CT. COMPARISON: Chest x-ray February 20, 2022. CT chest February 18, 2021. Report of PET/CT scan March 10, 2021. FINDINGS: Normal enhancement of the main pulmonary artery and right and left pulmonary arteries. Normal enhancement of the bilateral peripheral pulmonary arteries. There is no demonstrated pulmonary embolism. Normal thoracic aorta and visualized great vessels. There is no demonstrated aortic dissection. Scattered atherosclerotic calcification of the thoracic aorta. Mild cardiomegaly. Coronary artery calcifications. No pericardial effusion. Normal mediastinum. Normal hilar regions. Normal visualized trachea and bronchi. Focal bilateral lower lobe bronchiectasis. Bilateral mild lower lobe subsegmental atelectasis and/or fibrosis. No focal infiltrates or effusions. No pneumothorax. Small hiatal hernia. Normal pleura. Normal chest wall structures. Kyphoplasty changes at L1. Within the dome right lobe of the liver is a 7.0 x 6.6 cm hypodense mass significantly increased in size since the study of February 18, 2021. in the report of the PET/CT scan from March 10, 2021 no increased FDG uptake was identified in the liver. CT/CTA Chest W/WO Contrast IMPRESSION: No pulmonary embolus or thoracic aortic dissection. Mild cardiomegaly. Coronary artery calcifications. Bilateral lower lobe bronchiectasis. Small hiatal hernia. Increase in size of hypodense mass right lobe of the liver. Electronically Signed: Randolph Parker MD at 2:36 EDT Reading Location ID and State: [id number] / , Service support ,
[2022-02-21] MEDS: Nitroglycerin SL (ED/IMG/CATH) 0.4 MG TABLET SL (01:24)
[2022-02-21 01:30] LABS: Absolute Neutrophil Count 6.4 X10^3/uL (2.0-7.7); Basophil# 0.04 X10^3/uL; Basophil% 0.4 % (0-1); Eosinophils% 1.8 % (0-5); Hemoglobin 13.9 g/dL (13.0-16.5); Lymphocyte % 28.5 % (19-41); Mean Corp Hgb Conc 33.9 g/dL (32-36); Mean Corpuscular Hgb 31.7 pg (27.0-32.0); Mean Corpuscular Volume 93.4 fL (80-94); Mean Platelet Vol. 9.1 fl (6.2-12.0); Monocyte# 1.06 X10^3/uL; Monocyte% 9.8 % (0-10); NRBC Flagged by Analyzer 0 % (0-5); Neutrophil # 6.43 X10^3/uL (2.7-7.7); Neutrophil % 59.2 % (47-70); Platelet Count 370 K/mm3 (150-450); RBC Distribution Width CV 13.8 % (11.6-14.6); RBC Distribution Width SD 46.9 fl (35.1-43.9); Red Blood Count 4.39 M/mm3 (4.6-6.2); White Blood Count 10.9 K/mm3 (4.4-11.0)
--- NOTE | 2022-02-21 01:30 | ED.RN ---
pt bp 81/55. pt continues to c/o cp. aware. ns 500 bag infusing
[2022-02-21 01:53] LABS: Anion Gap 12 (5-15); BUN 21 mg/dL (7-18); BUN/Creat Ratio 13.9 RATIO (10-20); Calcium,Total 9.9 mg/dL (8.5-10.1); Chloride 102 mmol/L (98-107); Creatinine, Serum 1.51 mg/dL (0.70-1.30); EST Glomerular Filtration Rate 47 mL/min (>60); Est Glom Filt Rate - Afr Amer 56 mL/min (>60); Estimated Creatinine Clearance 33.34 ml/min; Glucose 112 mg/dL (74-106); Magnesium 2.3 mg/dL (1.6-2.6); Potassium 3.4 mmol/L (3.5-5.1); Sodium Level 138 mmol/L (136-145); Troponin-I HS 22 pg/mL (3.0-78.0)
[2022-02-21] MEDS: Ondansetron 4 MG/2 ML Vial IV (03:34)
[2022-02-21] MEDS: Morphine 4 MG/ML Syringe IV (03:34)
[2022-02-21 04:55] LABS: Troponin-I HS 19 pg/mL (3.0-78.0)
[2022-02-21] MEDS: HYDROmorphone 0.5 MG/0.5 ML SYRINGE IV (04:57)
--- NOTE | 2022-02-21 06:11 | EKG12_ITS ---
Test Reason : RHYTHM CONVERSION Blood Pressure : / mmHG Vent. Rate : 050 BPM Atrial Rate : 050 BPM P-R Int : 228 ms QRS Dur : 128 ms QT Int : 568 ms P-R-T Axes : 015 -57 169 degrees QTc Int : 517 ms Sinus bradycardia with 1st degree A-V block with frequent Premature ventricular complexes in a patter n of bigeminy Left axis deviation Right bundle branch block T wave abnormality, consider lateral ischemia Abnormal ECG Confirmed by ERAN CARDENAS, ERIN ([id number]), editor map CONSTANCE SCHAEFER ([id number]) on 02/22/2022 9:49:35 AM Referred By: JORDON Confirmed By:ERIN BARILLAS MD
[2022-02-21] MEDS: Midazolam 2 MG/2 ML Syringe IV (06:30)
--- NOTE | 2022-02-21 07:14 | EX.ED.DYSGE1 ---
HPI History of Present Illness Chief Complaint: Chest Pain Narrative Narrative: Patient is an 86-year-old male with past medical history of paroxysmal atrial fibrillation CAD hypertension hyperlipidemia and chronic kidney disease. He states that he developed chest discomfort a few hours prior to arrival. He states that there is no associated nausea vomiting diaphoresis associated with this. He reports that he cannot go to sleep secondary to the recurrent chest discomfort. He reports that he has felt similar to this when he has been in atrial fibrillation in the past and has needed cardioverted. 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 Multiple premature ventricular complexes Obesity (BMI 30.0-34.9) Paroxysmal atrial fibrillation Pneumonia Premature ventricular contractions 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 Shortness of breath on exertion Sleep apnea Thyroid disease Wears dentures Wears glasses Home Medications levothyroxine 125 mcg tablet 125 mcg PO DAILY hypothyroidism 06/11/13 [History Last Taken 05/07/21 07:00] multivitamin with folic acid 400 mcg tablet 1 tab PO DAILY supplement 06/11/13 [History Last Taken 10/22/17] aspirin 81 mg tablet,delayed release 81 mg PO QHS health maintenance 02/14/14 [History Last Taken 05/03/21] nitroglycerin 0.4 mg sublingual tablet 0.4 mg sublingual Q5M PRN Chest Pain 07/12/14 [History Last Taken Unknown] hydrochlorothiazide 25 mg tablet 25 mg PO DAILY diuretic #90 tabs 01/22/21 [Rx Last Taken Unknown] cholecalciferol (vitamin D3) 50 mcg (2,000 unit) capsule 50 mcg PO DAILY 02/09/21 [History Last Taken Unknown] mecobalamin (vitamin B12) 1,000 mcg chewable tablet 1,000 mcg PO DAILY 02/09/21 [History Last Taken Unknown] melatonin 10 mg capsule 10 mg PO HS PRN Sleep 02/09/21 [History Last Taken Unknown] benazepril 20 mg tablet (Lotensin) 20 mg PO DAILY blood pressure #90 tabs 03/09/21 [Rx Last Taken 05/07/21 07:00] amlodipine 10 mg tablet See Rx Instructions .Route .COMPLEX #90 tabs 04/27/21 [Rx Last Taken 05/07/21 07:00] amiodarone 200 mg tablet 200 mg PO DAILY Check with primary doctor 01/27/22 [History Last Taken Unknown] calcium carbonate 600 mg-vitamin D3 5 mcg (200 unit) tablet 1 tab PO QODAY 01/27/22 [History Last Taken Unknown] furosemide 40 mg tablet (Lasix) 40 mg PO .PRN PRN edema, SOB #30 tabs 02/19/22 [Rx Last Taken Unknown] metoprolol tartrate 25 mg tablet 25 mg PO BID #90 tabs 02/19/22 [Rx Last Taken Unknown] warfarin 2.5 mg tablet 2.5 mg PO SUSA 02/21/22 [History Last Taken Unknown] warfarin 5 mg tablet See Rx Instructions .Route .COMPLEX 02/21/22 [History Last Taken Unknown] Allergy/AdvReac Type Severity Reaction Status Date / Time lidocaine Allergy Shortness Verified 02/21/22 00:58 of breath/PVC'S Family History Father Cancer Mother Hypertension Myocardial infarction Sudden cardiac Arthritis Brother Myocardial infarction valve replacement Sister Hypertension Sister Hypertension Surgical History History of cardiac catheterization (06/2018) History of cardioversion (01/31/20) History of coronary artery stent placement (06/2005) History of kyphoplasty History of laparoscopic cholecystectomy History of left heart catheterization (07/03/18) History of shoulder surgery History of total left knee replacement (TKR) (06/2013) Hx of bladder repair surgery Hx of colonoscopy Hx of hernia repair Hx of tonsillectomy Hx of umbilical hernia repair Social History Smoking Status: Never smoker alcohol intake: never substance use type: does not use caffeine: Yes Type: coffee what type of physical activity do you participate in: none seatbelt use: always do you feel safe at home: Yes ROS ROS ED Constitutional Constitutional ED: Denies chills or fever(s) ENT ENT ED: Denies sore throat Cardiovascular Cardiovascular: Reports chest pain and palpitations Respiratory/Chest Respiratory/Chest: Denies cough or dyspnea Gastrointestinal Gastrointestinal: Denies abdominal pain, diarrhea, nausea or vomiting Genitourinary Genitourinary ED: Denies dysuria Musculoskeletal Musculoskeletal: Reports back pain; Denies myalgias Integumentary Denies rash Neurologic Neurologic: Denies headache(s) Hematologic/Lymphatic Hematologic/Lymphatic: Reports easy bleeding and easy bruising EXAM Physical Exam Const Vital Signs: 02/21/22 00:50 02/21/22 00:55 02/21/22 01:24 Temperature 97.1 F L Temperature Source Oral Pulse Rate 97 72 Pulse Rate [1 (Initial Baseline)] Pulse Rate [2] Pulse Rate [3] Pulse Rate [4] Pulse Rate [5] Pulse Rate [6] Respiratory Rate 18 Respiratory Rate [1 (Initial Baseline)] Respiratory Rate [2] Respiratory Rate [3] Respiratory Rate [4] Respiratory Rate [5] Respiratory Rate [6] Respiratory Effort Normal Non-Labored Respiratory Pattern Normal Blood Pressure 164/103 H 127/99 H Blood Pressure [1 (Initial Baseline)] Blood Pressure [2] Blood Pressure [3] Blood Pressure [4] Blood Pressure [5] Blood Pressure [6] Blood Pressure Mean 123 Pulse Ox 98 Oxygen Delivery Method Room Air Oxygen Delivery Method [1 (Initial Baseline)] Oxygen Delivery Method [2] Oxygen Delivery Method [3] Oxygen Delivery Method [4] Oxygen Delivery Method [5] Oxygen Delivery Method [6] Oxygen Flow Rate (L/min) Oxygen Flow Rate (L/min) [3] Oxygen Flow Rate (L/min) [4] Oxygen Flow Rate (L/min) [5] Oxygen Flow Rate (L/min) [6] 02/21/22 01:30 02/21/22 02:00 02/21/22 03:03 Temperature Temperature Source Pulse Rate 84 83 70 Pulse Rate [1 (Initial Baseline)] Pulse Rate [2] Pulse Rate [3] Pulse Rate [4] Pulse Rate [5] Pulse Rate [6] Respiratory Rate 16 18 12 Respiratory Rate [1 (Initial Baseline)] Respiratory Rate [2] Respiratory Rate [3] Respiratory Rate [4] Respiratory Rate [5] Respiratory Rate [6] Respiratory Effort Respiratory Pattern Blood Pressure 81/55 L 134/94 H 131/93 H Blood Pressure [1 (Initial Baseline)] Blood Pressure [2] Blood Pressure [3] Blood Pressure [4] Blood Pressure [5] Blood Pressure [6] Blood Pressure Mean 63 107 105 Pulse Ox 96 94 97 Oxygen Delivery Method Room Air Room Air Room Air Oxygen Delivery Method [1 (Initial Baseline)] Oxygen Delivery Method [2] Oxygen Delivery Method [3] Oxygen Delivery Method [4] Oxygen Delivery Method [5] Oxygen Delivery Method [6] Oxygen Flow Rate (L/min) Oxygen Flow Rate (L/min) [3] Oxygen Flow Rate (L/min) [4] Oxygen Flow Rate (L/min) [5] Oxygen Flow Rate (L/min) [6] 02/21/22 05:00 02/21/22 06:12 02/21/22 06:16 Temperature 98.2 F Temperature Source Pulse Rate 87 75 Pulse Rate [1 (Initial Baseline)] 75 Pulse Rate [2] 75 Pulse Rate [3] 50 L Pulse Rate [4] 48 L Pulse Rate [5] 46 L Pulse Rate [6] 47 L Respiratory Rate 12 17 Respiratory Rate [1 (Initial Baseline)] 17 Respiratory Rate [2] 17 Respiratory Rate [3] 11 L Respiratory Rate [4] 11 L Respiratory Rate [5] 15 Respiratory Rate [6] 13 Respiratory Effort Respiratory Pattern Blood Pressure 142/96 H 147/87 H Blood Pressure [1 (Initial Baseline)] 147/87 H Blood Pressure [2] 147/87 H Blood Pressure [3] 126/71 H Blood Pressure [4] 145/67 H Blood Pressure [5] 140/74 H Blood Pressure [6] 137/73 H Blood Pressure Mean 111 Pulse Ox 97 25 Oxygen Delivery Method Room Air Room Air Oxygen Delivery Method [1 (Initial Baseline)] Room Air Oxygen Delivery Method [2] Room Air Oxygen Delivery Method [3] Nasal Cannula Oxygen Delivery Method [4] Nasal Cannula Oxygen Delivery Method [5] Nasal Cannula Oxygen Delivery Method [6] Nasal Cannula Oxygen Flow Rate (L/min) Oxygen Flow Rate (L/min) [3] 4 Oxygen Flow Rate (L/min) [4] 4 Oxygen Flow Rate (L/min) [5] 4 Oxygen Flow Rate (L/min) [6] 4 02/21/22 06:26 02/21/22 06:27 02/21/22 06:00 Temperature Temperature Source Pulse Rate 48 L 75 Pulse Rate [1 (Initial Baseline)] Pulse Rate [2] Pulse Rate [3] Pulse Rate [4] Pulse Rate [5] Pulse Rate [6] Respiratory Rate 11 L 17 Respiratory Rate [1 (Initial Baseline)] Respiratory Rate [2] Respiratory Rate [3] Respiratory Rate [4] Respiratory Rate [5] Respiratory Rate [6] Respiratory Effort Respiratory Pattern Blood Pressure 139/85 H 147/87 H Blood Pressure [1 (Initial Baseline)] Blood Pressure [2] Blood Pressure [3] Blood Pressure [4] Blood Pressure [5] Blood Pressure [6] Blood Pressure Mean 107 Pulse Ox 98 94 Oxygen Delivery Method Nasal Cannula Room Air Room Air Oxygen Delivery Method [1 (Initial Baseline)] Oxygen Delivery Method [2] Oxygen Delivery Method [3] Oxygen Delivery Method [4] Oxygen Delivery Method [5] Oxygen Delivery Method [6] Oxygen Flow Rate (L/min) 4 Oxygen Flow Rate (L/min) [3] Oxygen Flow Rate (L/min) [4] Oxygen Flow Rate (L/min) [5] Oxygen Flow Rate (L/min) [6] Positive well nourished and well developed General Appearance ED: well developed HEENT Reports moist mucous membranes Eyes PERRL and EOMs intact bilaterally Neck supple and no JVD Chest Wall palpation of chest normal Chest Narrative: No bony deformity or crepitance of the chest wall Resp normal respiratory effort and clear to auscultation bilaterally Cardio regular rate Rate: other Other Details: Irregularly irregular rhythm with regular rate consistent with history of paroxysmal atrial fibrillation. Radial pulses are plus 2 out of 4 bilaterally are equal and symmetric GI normal to inspection, nondistended, normoactive bowel sounds, non-tender and non-distended GI Narrative: No voluntary guarding or rigidity no pulsatile mass or fluid wave no Auscultation: normoactive bowel sounds Palpation: soft Extremity normal to inspection Extremity Narrative: No asymmetric edema no pitting edema negative Homans' sign bilaterally Neuro oriented x3 and CN's II-XII intact bilaterally Sensorium / Orientation: alert Psych mental status grossly normal Skin no rashes or lesions noted MDM MDM MDM Narrative Medical decision making narrative: Patient presented to the ER in atrial fibrillation but heart rate was approximately 80-90 on average. He does have risk factors for cardiovascular disease and with his report of chest discomfort a cardiac work-up was obtained. Because of his anticoagulation and chest discomfort he also elected perform a CTA to rule out PE or dissection. Blood work showed no clinically significant findings. His INR is therapeutic at 3. His initial troponin is 22 with 2-hour delta downtrending to 19. CTA revealed no PE or dissection or signs of infection. Patient's heart rate remained approximately 80 and atrial fibrillation. he continued to complain of pain and therefore as he reported that he has felt this way previously with atrial fibrillation I did elect to perform a synchronized cardioversion. Patient was given 1 mg of Versed and 20 mg of propofol. Following this he underwent synchronized cardioversion at 50 100 150 and 200 J. Upon cardioversion at 200 patient did have conversion to sinus bradycardia with PVCs. Patient was watched in the ER and PVCs lessened and patient remained in sinus bradycardia. He states a rate of 50 is his baseline and he reports resolution of pain. Therefore at this time with resolution of pain and negative work-up I do not feel there is need to keep the patient in the hospital and is otherwise safe for discharge Lab Data Attestation: I reviewed the patient's lab results. Labs: Laboratory Results - last 24 hr 02/21/22 02/21/22 02/21/22 01:10 01:10 01:10 WBC 10.9 RBC 4.39 L Hgb 13.9 Hct 41.0 MCV 93.4 MCH 31.7 MCHC 33.9 RDW Std Deviation 46.9 H RDW Coeff of Roger 13.8 Plt Count 370 MPV 9.1 Immature Gran % (Auto) 0.300 Neut % (Auto) 59.2 Lymph % (Auto) 28.5 [place] % (Auto) 9.8 Eos % (Auto) 1.8 Baso % (Auto) 0.4 Absolute Neuts (auto) 6.4 Absolute Lymphs (auto) 3.10 Nucleated RBC % 0 PT 31.0 H INR 3.0 Sodium 138 Potassium 3.4 L Chloride 102 Carbon Dioxide 24.0 Anion Gap 12 BUN 21 H Creatinine 1.51 H Estim Creat Clear Calc 33.34 Est GFR (MDRD) Af Amer 56 L Est GFR (MDRD) Non-Af 47 L BUN/Creatinine Ratio 13.9 Glucose 112 H Calcium 9.9 Magnesium 2.3 Troponin I High Sens 22 02/21/22 03:34 WBC RBC Hgb Hct MCV MCH MCHC RDW Std Deviation RDW Coeff of Roger Plt Count MPV Immature Gran % (Auto) Neut % (Auto) Lymph % (Auto) [place] % (Auto) Eos % (Auto) Baso % (Auto) Absolute Neuts (auto) Absolute Lymphs (auto) Nucleated RBC % PT INR Sodium Potassium Chloride Carbon Dioxide Anion Gap BUN Creatinine Estim Creat Clear Calc Est GFR (MDRD) Af Amer Est GFR (MDRD) Non-Af BUN/Creatinine Ratio Glucose Calcium Magnesium Troponin I High Sens 19 Radiography Diagnostic Testing: Clinical Impression(s) from Imaging Studies Chest CTA 02/21/22 01:14 IMPRESSION: No pulmonary embolus or thoracic aortic dissection. Mild cardiomegaly. Coronary artery calcifications. Bilateral lower lobe bronchiectasis. Small hiatal hernia. Increase in size of hypodense mass right lobe of the liver. Electronically Signed: Randolph Parker MD at 2:36 EDT Reading Location ID and State: [id number] / , Service support , Discharge Plan Triage Chief Complaint: Chest Pain ED Provider: Giuliano Solis Dx/Rx/DC Orders Clinical Impression: Paroxysmal atrial fibrillation, Current use of hydrodynamicist anticoagulation, Nonspecific chest pain, Essential (primary) hypertension Instructions: AFib Dc, ED Chest Pain, Uncertain Cause Prescriptions: No Action mecobalamin (vitamin B12) 1,000 mcg tablet,chewable 1,000 mcg PO DAILY cholecalciferol (vitamin D3) 50 mcg (2,000 unit) capsule 50 mcg PO DAILY melatonin 10 mg capsule 10 mg PO HS PRN (Reason: Sleep) metoprolol tartrate 25 mg tablet 25 mg PO BID Qty: 90 3RF furosemide [Lasix] 40 mg tablet 40 mg PO .PRN PRN (Reason: edema, SOB) Qty: 30 0RF levothyroxine 125 MCG tablet 125 mcg PO DAILY Label Comments: Low thyroid multivitamin with folic acid 1 TABLET tablet 1 tab PO DAILY Label Comments: SUPPLEMENT aspirin 81 MG tablet 81 mg PO QHS Label Comments: Blood thinner for heart health nitroglycerin 0.4 MG tablet 0.4 mg SUBLINGUAL Q5M PRN (Reason: Chest Pain) amiodarone 200 mg tablet 200 mg PO DAILY Rx Instructions: 100 mg PO daily; calcium carbonate-vitamin D3 [Calcium + D] 600 mg-5 mcg (200 unit) Tablet 1 tab PO QODAY warfarin 2.5 mg tablet 2.5 mg PO SUSA Protocol: Dose Management Condition: Tuesday Dose/Route: 2.5 mg Instruction: 1 x 2.5 mg tablet Condition: Tuesday Dose/Route: 5 mg Instruction: 1 x 5 mg tablet Condition: Tuesday Dose/Route: 5 mg Instruction: 1 x 5 mg tablet Condition: Tuesday Dose/Route: 5 mg Instruction: 1 x 5 mg tablet Condition: Dose/Route: 5 mg Instruction: 1 x 5 mg tablet Condition: Tuesday Dose/Route: 5 mg Instruction: 1 x 5 mg tablet Condition: Tuesday Dose/Route: 2.5 mg Instruction: 1 x 2.5 mg tablet Protocol Text: Adjustment Start Date: Tuesday02/19/22 INR Value: 2.6 INR Date: 02/19/22 Recheck Date: 03/05/22 Rx Instructions: 5mg on all other days warfarin 5 mg tablet See Rx Instructions .ROUTE .COMPLEX Protocol: Dose Management Condition: Tuesday Dose/Route: 2.5 mg Instruction: 1 x 2.5 mg tablet Condition: Tuesday Dose/Route: 5 mg Instruction: 1 x 5 mg tablet Condition: Tuesday Dose/Route: 5 mg Instruction: 1 x 5 mg tablet Condition: Tuesday Dose/Route: 5 mg Instruction: 1 x 5 mg tablet Condition: Dose/Route: 5 mg Instruction: 1 x 5 mg tablet Condition: Tuesday Dose/Route: 5 mg Instruction: 1 x 5 mg tablet Condition: Tuesday Dose/Route: 2.5 mg Instruction: 1 x 2.5 mg tablet Protocol Text: Adjustment Start Date: Tuesday02/19/22 INR Value: 2.6 INR Date: 02/19/22 Recheck Date: 03/05/22 Rx Instructions: 5 mg orally ;tue hydrochlorothiazide 25 mg tablet 25 mg PO DAILY Qty: 90 3RF benazepril [Lotensin] 20 mg tablet 20 mg PO DAILY Qty: 90 3RF amlodipine 10 mg tablet See Rx Instructions .ROUTE .COMPLEX Qty: 90 3RF Dose Instruction: Take 1 tablet by mouth once daily for blood pressure Rx Instructions: Take 1 tablet by mouth once daily for blood pressure Primary Care Provider: Parish Marshall Referrals: Parish Marshall, DO [Primary Care Provider] - Activity Restrictions/Additional Instructions: Please continue all of your medications as previously directed and return to the ER should you have any further concerns Disposition Disposition: Home, Self Care
== END 2022-02-21 07:50 | disposition home or self-care (01) ==
PROVIDERS: Emergency Provider Emergency Medicine; PCP Family Medicine; Visit Provider Emergency Medicine
DX: I48.0 Paroxysmal atrial fibrillation (principal); N18.9 Chronic kidney disease, unspecified; I25.10 Atherosclerotic heart disease of native coronary artery without angina pectoris; I49.3 Ventricular premature depolarization; I12.9 Hypertensive chronic kidney disease with stage 1 through stage 4 chronic kidney disease, or unspecified chronic kidney disease; E78.5 Hyperlipidemia, unspecified; Z79.01 Long term (current) use of anticoagulants; R07.9 Chest pain, unspecified
CPT/HCPCS: 71275; 80048; 83735; 84484; 85025; 85610; 92960; 93005; 96374; 96375; 99284; J7030; J7040; Q9967; A4216; J2405

== ENCOUNTER 2022-02-23 12:03 | Emergency (ER) | payer MEDICARE, OTHER, SELFPAY ==
[2022-02-23 12:04] VITALS: BP 150/77; PULSE 72; RESP 18; TEMP 36.6; O2SAT 98; BMI 32.3
--- NOTE | 2022-02-23 12:45 | EKG12_ITS ---
Test Reason : CP Blood Pressure : / mmHG Vent. Rate : 065 BPM Atrial Rate : 065 BPM P-R Int : 222 ms QRS Dur : 142 ms QT Int : 482 ms P-R-T Axes : 038 -55 013 degrees QTc Int : 501 ms Sinus rhythm with 1st degree A-V block Left axis deviation Non-specific intra-ventricular conduction block Inferior infarct , age undetermined T wave abnormality, consider anterior ischemia Abnormal ECG Confirmed by YAYA CARDENAS, ALVARO ([id number]), research editor CONSTANCE SCHAEFER ([id number]) on 02/25/2022 10:37:46 AM Referred By: SCARLETT/ERIC Confirmed By:ALVARO JAVIER MD
--- NOTE | 2022-02-23 12:46 | ED.VIS.CHEST ---
HPI History of Present Illness Chief Complaint: Chest Pain Detail of Chief Complaint: Chest pain and shortness of breath for the last 4 to 5 days Narrative Narrative: Patient presents the emergency department with complaint of chest discomfort and shortness of breath that started initially 4 days ago. Patient was seen in the emergency department twice over the weekend and had a cardioversion of his A. fib. Patient states that he has been unable to sleep at night. He has had some intermittent chest pressure. When he was seen in the emergency department over the weekend he had pain that radiated to the left shoulder and into his back. Patient just still does not feel well. He denies fever or cough or recent illness otherwise. 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 Multiple premature ventricular complexes Obesity (BMI 30.0-34.9) Paroxysmal atrial fibrillation Pneumonia Premature ventricular contractions 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 Shortness of breath on exertion Sleep apnea Thyroid disease Wears dentures Wears glasses Home Medications levothyroxine 125 mcg tablet 125 mcg PO DAILY hypothyroidism 06/11/13 [History Last Taken 05/07/21 07:00] multivitamin with folic acid 400 mcg tablet 1 tab PO DAILY supplement 06/11/13 [History Last Taken 10/22/17] aspirin 81 mg tablet,delayed release 81 mg PO QHS health maintenance 02/14/14 [History Last Taken 05/03/21] nitroglycerin 0.4 mg sublingual tablet 0.4 mg sublingual Q5M PRN Chest Pain 07/12/14 [History Last Taken Unknown] hydrochlorothiazide 25 mg tablet 25 mg PO DAILY diuretic #90 tabs 01/22/21 [Rx Last Taken Unknown] cholecalciferol (vitamin D3) 50 mcg (2,000 unit) capsule 50 mcg PO DAILY 02/09/21 [History Last Taken Unknown] mecobalamin (vitamin B12) 1,000 mcg chewable tablet 1,000 mcg PO DAILY 02/09/21 [History Last Taken Unknown] melatonin 10 mg capsule 10 mg PO HS PRN Sleep 02/09/21 [History Last Taken Unknown] benazepril 20 mg tablet (Lotensin) 20 mg PO DAILY blood pressure #90 tabs 03/09/21 [Rx Last Taken 05/07/21 07:00] amlodipine 10 mg tablet See Rx Instructions .Route .COMPLEX #90 tabs 04/27/21 [Rx Last Taken 05/07/21 07:00] amiodarone 200 mg tablet 200 mg PO DAILY Check with primary doctor 01/27/22 [History Last Taken Unknown] calcium carbonate 600 mg-vitamin D3 5 mcg (200 unit) tablet 1 tab PO QODAY 01/27/22 [History Last Taken Unknown] furosemide 40 mg tablet (Lasix) 40 mg PO .PRN PRN edema, SOB #30 tabs 02/19/22 [Rx Last Taken Unknown] metoprolol tartrate 25 mg tablet 25 mg PO BID #90 tabs 02/19/22 [Rx Last Taken Unknown] warfarin 2.5 mg tablet 2.5 mg PO SUSA 02/21/22 [History Last Taken Unknown] warfarin 5 mg tablet See Rx Instructions .Route .COMPLEX 02/21/22 [History Last Taken Unknown] lorazepam 1 mg tablet (Ativan) 1 mg PO TID PRN anxiety #10 tabs 02/23/22 [Rx Last Taken Unknown] Allergy/AdvReac Type Severity Reaction Status Date / Time lidocaine Allergy Shortness Verified 02/23/22 12:06 of breath/PVC'S Family History Father Cancer Mother Hypertension Myocardial infarction Sudden cardiac Arthritis Brother Myocardial infarction valve replacement Sister Hypertension Sister Hypertension Surgical History History of cardiac catheterization (06/2018) History of cardioversion (01/31/20) History of coronary artery stent placement (06/2005) History of kyphoplasty History of laparoscopic cholecystectomy History of left heart catheterization (07/03/18) History of shoulder surgery History of total left knee replacement (TKR) (06/2013) Hx of bladder repair surgery Hx of colonoscopy Hx of hernia repair Hx of tonsillectomy Hx of umbilical hernia repair Social History Smoking Status: Never smoker alcohol intake: never substance use type: does not use caffeine: Yes Type: coffee what type of physical activity do you participate in: none seatbelt use: always do you feel safe at home: Yes ROS ROS ED Review of Systems ROS Unobtainable: other Constitutional Constitutional ED: Reports lethargy; Denies chills, fever(s), sweats or weight loss Eyes Eyes: Denies blurry vision, change in vision or diplopia ENT ENT ED: Denies rhinorrhea or sore throat Cardiovascular Cardiovascular: Reports chest pain; Denies orthopnea or racing heartbeat Respiratory/Chest Respiratory/Chest: Reports dyspnea and dyspnea on exertion; Denies cough, orthopnea or sputum Gastrointestinal Gastrointestinal: Denies abdominal pain, diarrhea, nausea or vomiting Genitourinary Genitourinary ED: Denies dysuria, hematuria or urinary frequency Musculoskeletal Musculoskeletal: Denies arthralgias, back pain, myalgias or neck pain Integumentary Denies abscess, Abrasions or rash Neurologic Neurologic: Denies headache(s) or weakness Psychiatric Psychiatric: Denies anxiety, depression or suicidal thoughts Endocrine Endocrinology: Denies polydipsia, polyphagia or polyuria Hematologic/Lymphatic Hematologic/Lymphatic: Denies easy bleeding, easy bruising or lymphadenopathy Allergic/Immunologic Allergic/Immunologic ED: Denies mouth swelling, tongue swelling or urticaria EXAM Physical Exam Const Vital Signs: 02/23/22 12:04 02/23/22 13:47 02/23/22 13:47 Temperature 97.8 F Temperature Source Temporal Pulse Rate 72 58 L Respiratory Rate 18 12 Respiratory Effort Respiratory Pattern Blood Pressure 150/77 H 152/84 H Blood Pressure Mean 101 106 Pulse Ox 98 93 Oxygen Delivery Method Room Air Room Air Room Air 02/23/22 13:47 02/23/22 14:45 Temperature Temperature Source Pulse Rate 60 Respiratory Rate 12 Respiratory Effort Normal Non-Labored Respiratory Pattern Normal Blood Pressure 149/71 H Blood Pressure Mean 97 Pulse Ox 94 Oxygen Delivery Method Room Air Positive well nourished and well developed General Appearance ED: well developed and NAD HEENT Reports TM's clear and moist mucous membranes normocephalic and atraumatic; Negative for trauma or tenderness Tympanic Membrane ED: Yes TM's clear Eyes PERRL and EOMs intact bilaterally General Eye ED: Negative for pale conjunctiva or scleral icterus Neck no lymphadenopathy, supple and no JVD General: Negative for tenderness Chest Wall inspection of chest normal and palpation of chest normal Chest: Negative for tenderness Resp normal respiratory effort and clear to auscultation bilaterally Effort and Inspection: Negative for respiratory distress or pain with movement Auscultation: Negative for rhonchi, wheezes or diminished lung sounds Cardio regular rate, regular rhythm, S1 normal heart sound, S2 normal heart sound and no murmurs Peripheral Pulses: pulses 2+ throughout GI normal to inspection, nondistended, normoactive bowel sounds, soft to palpation, non-tender, non-distended and no masses Back/Spine no CVA tenderness and no thoracic nor lumbar tenderness Extremity normal to inspection General Extremety ED: Negative for edema General Extremity: Negative for edema Neuro oriented x3, CN's II-XII intact bilaterally, no sensory deficits noted and gait normal Sensorium / Orientation: awake, alert, oriented to person, oriented to place and oriented to time Motor Exam: strength 5/5 throughout and strength abnormal Psych mental status grossly normal Skin no rashes or lesions noted and no wounds Heart Score History: Moderately Suspicious ECG: Nonspecific Repolarization Age: >/= 65 years Risk Factors: >/= 3 Risk Factors or History of CAD Troponin: </= Normal Limit Score: 6 MDM MDM MDM Narrative Medical decision making narrative: Onset on arrival. Patient placed on a registered nurse cardiac telemetry. Lab work-up was unremarkable. Troponin and delta troponin both negative. D-dimer when corrected for age was normal. INR was 3.3. Chest x-ray unremarkable. I discussed case with general activities therapist on-call Dr. Cornelius Zelaya. Patient's general activities therapist also called and and felt that as long as he was in a sinus rhythm he could be discharged home. I did suspect a component of anxiety as patient's been unable to sleep and seems like his symptoms worsened at night. I did give patient a milligram of Ativan here and will write him for some as needed Ativan. Family members are in agreement with plan going forward and they will follow-up with primary care physician and his general activities therapist. I do not feel patient is having acute coronary syndrome. While in the department and while I was speaking with the patient he did have a change in his rhythm where he became more tachycardic with a rate of 10 5-1 20 that appeared to be regular and appeared to have P waves however before we could obtain an EKG his rhythm changed again to his sinus rhythm in the 60s. It is possible he may be going in and out of A. fib/flutter. Lab Data Attestation: I reviewed the patient's lab results. Labs: Laboratory Results - last 24 hr 02/23/22 02/23/22 02/23/22 12:54 12:54 12:54 WBC 11.0 RBC 3.90 L Hgb 12.7 L Hct 36.4 L MCV 93.3 MCH 32.6 H MCHC 34.9 RDW Std Deviation 46.5 H RDW Coeff of Roger 13.7 Plt Count 273 MPV 8.9 Immature Gran % (Auto) 0.500 Neut % (Auto) 75.2 H Lymph % (Auto) 11.4 L Garland % (Auto) 12.1 H Eos % (Auto) 0.5 Baso % (Auto) 0.3 Absolute Neuts (auto) 8.3 H Absolute Lymphs (auto) 1.25 Nucleated RBC % 0 PT 33.0 H INR 3.3 D-Dimer Quant (PE/DVT) 0.56 H* Sodium 136 Potassium 3.0 L Chloride 103 Carbon Dioxide 26.0 Anion Gap 7 BUN 21 H Creatinine 1.38 H Estim Creat Clear Calc 34.03 Est GFR (MDRD) Af Amer 63 Est GFR (MDRD) Non-Af 52 L BUN/Creatinine Ratio 15.2 Glucose 143 H Calcium 9.4 Troponin I High Sens 20 B-Natriuretic Peptide 02/23/22 02/23/22 12:54 15:13 WBC RBC Hgb Hct MCV MCH MCHC RDW Std Deviation RDW Coeff of Roger Plt Count MPV Immature Gran % (Auto) Neut % (Auto) Lymph % (Auto) Garland % (Auto) Eos % (Auto) Baso % (Auto) Absolute Neuts (auto) Absolute Lymphs (auto) Nucleated RBC % PT INR D-Dimer Quant (PE/DVT) Sodium Potassium Chloride Carbon Dioxide Anion Gap BUN Creatinine Estim Creat Clear Calc Est GFR (MDRD) Af Amer Est GFR (MDRD) Non-Af BUN/Creatinine Ratio Glucose Calcium Troponin I High Sens 19 B-Natriuretic Peptide 194.8 H Radiography Diagnostic Testing: Clinical Impression(s) from Imaging Studies Chest X-Ray 02/23/22 13:54 IMPRESSION: Stable increased markings at the right lung base suggestive of scarring. Cardiomegaly. Electronically Signed: Osman Donohue MD at 14:15 EDT , 1 view chest x-ray obtained interpreted by myself as cardiomegaly otherwise no acute disease process. Radiology in agreement. EKG Initial EKG: Attestation: I personally reviewed and interpreted this EKG as follows: Comments: Sinus rhythm with a ventricular rate of [address] changes Prior: Changed Discharge Plan Triage Chief Complaint: Chest Pain ED Provider: Trina Heath Dx/Rx/DC Orders Clinical Impression: Chest pain, Atrial fibrillation, controlled Instructions: ED AFIB, ED Chest Pain, Uncertain Cause Prescriptions: New lorazepam [Ativan] 1 mg tablet 1 mg PO TID PRN (Reason: anxiety) Qty: 10 0RF No Action mecobalamin (vitamin B12) 1,000 mcg tablet,chewable 1,000 mcg PO DAILY cholecalciferol (vitamin D3) 50 mcg (2,000 unit) capsule 50 mcg PO DAILY melatonin 10 mg capsule 10 mg PO HS PRN (Reason: Sleep) metoprolol tartrate 25 mg tablet 25 mg PO BID Qty: 90 3RF furosemide [Lasix] 40 mg tablet 40 mg PO .PRN PRN (Reason: edema, SOB) Qty: 30 0RF levothyroxine 125 MCG tablet 125 mcg PO DAILY Label Comments: Low thyroid multivitamin with folic acid 1 TABLET tablet 1 tab PO DAILY Label Comments: SUPPLEMENT aspirin 81 MG tablet 81 mg PO QHS Label Comments: Blood thinner for heart health nitroglycerin 0.4 MG tablet 0.4 mg SUBLINGUAL Q5M PRN (Reason: Chest Pain) amiodarone 200 mg tablet 200 mg PO DAILY Rx Instructions: 100 mg PO daily; calcium carbonate-vitamin D3 [Calcium + D] 600 mg-5 mcg (200 unit) Tablet 1 tab PO QODAY warfarin 2.5 mg tablet 2.5 mg PO SUSA Protocol: Dose Management Condition: Tuesday Dose/Route: 2.5 mg Instruction: 1 x 2.5 mg tablet Condition: Tuesday Dose/Route: 5 mg Instruction: 1 x 5 mg tablet Condition: Tuesday Dose/Route: 5 mg Instruction: 1 x 5 mg tablet Condition: Tuesday Dose/Route: 5 mg Instruction: 1 x 5 mg tablet Condition: Dose/Route: 5 mg Instruction: 1 x 5 mg tablet Condition: Tuesday Dose/Route: 5 mg Instruction: 1 x 5 mg tablet Condition: Tuesday Dose/Route: 2.5 mg Instruction: 1 x 2.5 mg tablet Protocol Text: Adjustment Start Date: Tuesday02/19/22 INR Value: 2.6 INR Date: 02/19/22 Recheck Date: 03/05/22 Rx Instructions: 5mg on all other days warfarin 5 mg tablet See Rx Instructions .ROUTE .COMPLEX Protocol: Dose Management Condition: Tuesday Dose/Route: 2.5 mg Instruction: 1 x 2.5 mg tablet Condition: Tuesday Dose/Route: 5 mg Instruction: 1 x 5 mg tablet Condition: Tuesday Dose/Route: 5 mg Instruction: 1 x 5 mg tablet Condition: Tuesday Dose/Route: 5 mg Instruction: 1 x 5 mg tablet Condition: Dose/Route: 5 mg Instruction: 1 x 5 mg tablet Condition: Tuesday Dose/Route: 5 mg Instruction: 1 x 5 mg tablet Condition: Tuesday Dose/Route: 2.5 mg Instruction: 1 x 2.5 mg tablet Protocol Text: Adjustment Start Date: Tuesday02/19/22 INR Value: 2.6 INR Date: 02/19/22 Recheck Date: 03/05/22 Rx Instructions: 5 mg orally ;tue hydrochlorothiazide 25 mg tablet 25 mg PO DAILY Qty: 90 3RF benazepril [Lotensin] 20 mg tablet 20 mg PO DAILY Qty: 90 3RF amlodipine 10 mg tablet See Rx Instructions .ROUTE .COMPLEX Qty: 90 3RF Dose Instruction: Take 1 tablet by mouth once daily for blood pressure Rx Instructions: Take 1 tablet by mouth once daily for blood pressure Primary Care Provider: Parish Marshall Referrals: Orville Espinal MD [Med Staff - Active Staff] - 3-5 Days Parish Marshall DO [Primary Care Provider] - Disposition Disposition: Home, Self Care
[2022-02-23 13:02] LABS: Absolute Lymphocyte Count 1.25 X10^3/uL (0.83-4.51); Absolute Neutrophil Count 8.3 X10^3/uL (2.0-7.7); Basophil# 0.03 X10^3/uL; Basophil% 0.3 % (0-1); Eosinophil# 0.05 X10^3/uL; Eosinophils% 0.5 % (0-5); Hematocrit 36.4 % (40-54); Hemoglobin 12.7 g/dL (13.0-16.5); Lymphocyte # 1.25 X10^3/ul (0.83-4.51); Lymphocyte % 11.4 % (19-41); Mean Corp Hgb Conc 34.9 g/dL (32-36); Mean Corpuscular Hgb 32.6 pg (27.0-32.0); Mean Corpuscular Volume 93.3 fL (80-94); Mean Platelet Vol. 8.9 fl (6.2-12.0); Monocyte# 1.33 X10^3/uL; Monocyte% 12.1 % (0-10); NRBC Flagged by Analyzer 0 % (0-5); Neutrophil # 8.29 X10^3/uL (2.7-7.7); Neutrophil % 75.2 % (47-70); Platelet Count 273 K/mm3 (150-450); RBC Distribution Width CV 13.7 % (11.6-14.6); RBC Distribution Width SD 46.5 fl (35.1-43.9)
[2022-02-23 13:19] LABS: Anion Gap 7 (5-15); BUN 21 mg/dL (7-18); BUN/Creat Ratio 15.2 RATIO (10-20); Calcium,Total 9.4 mg/dL (8.5-10.1); Chloride 103 mmol/L (98-107); Creatinine, Serum 1.38 mg/dL (0.70-1.30); EST Glomerular Filtration Rate 52 mL/min (>60); Est Glom Filt Rate - Afr Amer 63 mL/min (>60); Estimated Creatinine Clearance 34.03 ml/min; Glucose 143 mg/dL (74-106); Sodium Level 136 mmol/L (136-145); Troponin-I HS (w/2H Reflex) 20 pg/mL (3.0-78.0)
[2022-02-23 13:27] LABS: International Normalized Ratio 3.3
[2022-02-23 13:28] LABS: BNP,B-Type NATRIURETIC PEPTIDE 194.8 pg/mL (0-100)
[2022-02-23 13:40] LABS: D-Dimer Quantitative (DVT/PE) 0.56 FEU/ug/m (0.27-0.49)
[2022-02-23] MEDS: 0.9% Normal Saline 1,000 ML 150 ML IV (13:43)
[2022-02-23 13:47] VITALS: BP 152/84; PULSE 58; RESP 12; O2SAT 93
--- NOTE | 2022-02-23 13:54 | RAD_ITS ---
STUDY: X-RAY CHEST REASON FOR EXAM: Male, 86 years old. Chest pain TECHNIQUE: Single AP portable view of the chest. COMPARISON: Comparison is made with prior study 02/20/2022. FINDINGS: EKG electrodes are seen. Stable increased markings at the right lung base suggestive of possible scarring. There is no demonstrated pleural abnormality. There is moderate cardiac enlargement. Normal mediastinum and zackery. Normal visualized pulmonary arteries. There is atherosclerotic tortuosity of the aortic arch and descending thoracic aorta. There are diffuse degenerative changes of the visualized thoracic spine. There is degenerative osteoarthritis of the bilateral shoulders. There is no demonstrated abnormality of the visualized soft tissue structures of the upper abdomen. RAD/Chest 1 View (Portable) IMPRESSION: Stable increased markings at the right lung base suggestive of scarring. Cardiomegaly. Electronically Signed: Osman Donohue MD at 14:15 EDT ,
[2022-02-23 14:45] VITALS: BP 149/71; PULSE 60; RESP 12; O2SAT 94
[2022-02-23 14:59] LABS: Reflex Troponin-HS? (from REC) Y
[2022-02-23] MEDS: LORazepam 2 MG/ML Syringe 1 MG IV (15:39)
[2022-02-23] MEDS: Potassium Chloride Oral Tablet 20 MEQ 40 MEQ PO (15:40)
--- NOTE | 2022-02-23 15:41 | ED.RN ---
ATIVAN 0.5 GIVEN PER REQUEST
[2022-02-23 15:48] LABS: Troponin-I HS 19 pg/mL (3.0-78.0)
[2022-02-23 16:50] VITALS: PULSE 68; RESP 17; O2SAT 98
== END 2022-02-23 16:51 | disposition home or self-care (01) ==
PROVIDERS: Emergency Provider Emergency Medicine; PCP Family Medicine; Visit Provider Emergency Medicine
DX: I48.91 Unspecified atrial fibrillation (principal); M25.512 Pain in left shoulder; E78.5 Hyperlipidemia, unspecified; I10 Essential (primary) hypertension; I25.10 Atherosclerotic heart disease of native coronary artery without angina pectoris; M54.9 Dorsalgia, unspecified; R07.9 Chest pain, unspecified
CPT/HCPCS: 71045; 80048; 83880; 84484; 85025; 85379; 85610; 93005; 96361; 96374; 99285; J7030; A4216

== ENCOUNTER 2022-02-27 15:19 | Emergency (ER) | payer MEDICARE, OTHER, SELFPAY ==
[2022-02-27 15:21] VITALS: BP 136/86; PULSE 108; RESP 23; TEMP 36.2; O2SAT 96; BMI 33.8
--- NOTE | 2022-02-27 15:25 | EKG12_ITS ---
Test Reason : Blood Pressure : / mmHG Vent. Rate : 107 BPM Atrial Rate : 000 BPM P-R Int : 000 ms QRS Dur : 132 ms QT Int : 406 ms P-R-T Axes : 000 -77 066 degrees QTc Int : 542 ms Atrial fibrillation with rapid ventricular response with premature ventricular or aberrantly conducte d complexes Left axis deviation Right bundle branch block Inferior infarct , age undetermined Abnormal ECG Confirmed by YAYA CARDENAS, ALVARO ([id number]), video editor CONSTANCE SCHAEFER ([id number]) on 03/01/2022 9:21:27 AM Referred By: Confirmed By:ALVARO JAVIER MD
--- NOTE | 2022-02-27 15:41 | EDS_ITS ---
HPI History of Present Illness Chief Complaint: Chest Pain Narrative Narrative: Patient presents with right shoulder pain, started last night it is nontraumatic. Every time he turns he has the shoulder pain and he cannot move and he cannot sleep. He has no fever or chills she is denying chest pain. He has a history of atrial fibrillation, he has been seen for this recently in the past few times in the emergency department, this was this month. He has no other symptoms at this time no headache no neck pain. No recent fevers or chills. [facility] Medical History Ambulates with cane Anemia Arthritis Atherosclerotic heart disease of [place] coronary artery without angina pectoris Back pain Bleeding disorder Cancer Cardiology follow-up encounter Cataracts, bilateral Easy bruising Essential (primary) hypertension GERD (gastroesophageal reflux disease) History of back problems History of echocardiogram History of edema History of gallstones History of Holter monitoring History of ulceration HLD (hyperlipidemia) Hx of fracture of pelvis Iatrogenic hypothyroidism Injury of back [employer] current use of anticoagulant Multiple premature ventricular complexes Obesity (BMI 30.0-34.9) Paroxysmal atrial fibrillation Pneumonia Premature ventricular contractions 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 Shortness of breath on exertion Sleep apnea Thyroid disease Wears dentures Wears glasses Home Medications levothyroxine 125 mcg tablet 125 mcg PO DAILY hypothyroidism 06/11/13 [History Last Taken 05/07/21 07:00] multivitamin with folic acid 400 mcg tablet 1 tab PO DAILY supplement 06/11/13 [History Last Taken 10/22/17] aspirin 81 mg tablet,delayed release 81 mg PO QHS health maintenance 02/14/14 [History Last Taken 05/03/21] nitroglycerin 0.4 mg sublingual tablet 0.4 mg sublingual Q5M PRN Chest Pain 07/12/14 [History Last Taken Unknown] hydrochlorothiazide 25 mg tablet 25 mg PO DAILY diuretic #90 tabs 01/22/21 [Rx Last Taken Unknown] cholecalciferol (vitamin D3) 50 mcg (2,000 unit) capsule 50 mcg PO DAILY 02/09/21 [History Last Taken Unknown] mecobalamin (vitamin B12) 1,000 mcg chewable tablet 1,000 mcg PO DAILY 02/09/21 [History Last Taken Unknown] melatonin 10 mg capsule 10 mg PO HS PRN Sleep 02/09/21 [History Last Taken Unknown] benazepril 20 mg tablet (Lotensin) 20 mg PO DAILY blood pressure #90 tabs 03/09/21 [Rx Last Taken 05/07/21 07:00] amlodipine 10 mg tablet See Rx Instructions .Route .COMPLEX #90 tabs 04/27/21 [Rx Last Taken 05/07/21 07:00] amiodarone 200 mg tablet 200 mg PO DAILY Check with primary doctor 01/27/22 [History Last Taken Unknown] calcium carbonate 600 mg-vitamin D3 5 mcg (200 unit) tablet 1 tab PO QODAY 01/27/22 [History Last Taken Unknown] furosemide 40 mg tablet (Lasix) 40 mg PO .PRN PRN edema, SOB #30 tabs 02/19/22 [Rx Last Taken Unknown] metoprolol tartrate 25 mg tablet 25 mg PO BID #90 tabs 02/19/22 [Rx Last Taken Unknown] warfarin 2.5 mg tablet 2.5 mg PO SUSA 02/21/22 [History Last Taken Unknown] warfarin 5 mg tablet See Rx Instructions .Route .COMPLEX 02/21/22 [History Last Taken Unknown] lorazepam 1 mg tablet (Ativan) 1 mg PO TID PRN anxiety #10 tabs 02/23/22 [Rx Last Taken Unknown] oxycodone-acetaminophen 5 mg-325 mg tablet (Endocet) 1 tab PO Q8H PRN pain 3 days #12 tabs 02/27/22 [Rx Last Taken Unknown] Allergy/AdvReac Type Severity Reaction Status Date / Time lidocaine Allergy Shortness Verified 02/23/22 12:06 of breath/PVC'S Family History Father Cancer Mother Hypertension Myocardial infarction Sudden cardiac Arthritis Brother Myocardial infarction valve replacement Sister Hypertension Sister Hypertension Surgical History History of cardiac catheterization (06/2018) History of cardioversion (01/31/20) History of coronary artery stent placement (06/2005) History of kyphoplasty History of laparoscopic cholecystectomy History of left heart catheterization (07/03/18) History of shoulder surgery History of total left knee replacement (TKR) (06/2013) Hx of bladder repair surgery Hx of colonoscopy Hx of hernia repair Hx of tonsillectomy Hx of umbilical hernia repair Social History Smoking Status: Never smoker alcohol intake: never substance use type: does not use caffeine: Yes Type: coffee what type of physical activity do you participate in: none seatbelt use: always do you feel safe at home: Yes ROS ROS ED ROS Narrative Past medical history: Reviewed in the EMR and at bedside Medications: Reviewed, he is on warfarin Social history: Noncontributory Review of systems: All systems negative except as indicated General: No fever Eyes: No visual changes ENT: No upper airway congestion, normal voice Neck: No neck pain Cardiovascular: No chest pain Respiratory: No shortness of breath or cough Gastrointestinal: No abdominal pain, nausea vomiting or diarrhea Genitourinary: No dysuria Musculoskeletal: Right shoulder pain Skin: No rash Neurological: No memory loss, confusion or any focal weakness Psych: No recent behavioral changes Hematologic: No easy bleeding or easy bruising EXAM Physical Exam Narrative Exam Narrative: Physical exam General: Well nourished, Well developed, No Acute Distress Head: Normocephalic, Atraumatic Eyes: Conjunctiva not pale ENT: Moist mucous membranes Neck: Supple, Nontender, No lymphadenopathy Cardiovascular: Regular rate, Regular rhythm Respiratory: No distress, CTA bilaterally Abdomen: Soft, Nontender, Nondistended Back: Nontender, Normal Inspection. Negative for: CVA tenderness Extremities: I cannot reproduce the shoulder pain I am moving his shoulder in all directions with only slight pain Skin: Normal color, No rash Neurological: Alert, Normal Strength, Normal Sensation Psychological: Normal affect Const Vital Signs: 02/27/22 15:21 02/27/22 15:24 02/27/22 16:20 Temperature 97.2 F L Temperature Source Temporal Pulse Rate 108 H 101 H Respiratory Rate 23 H 18 Respiratory Effort Normal Non-Labored Blood Pressure 136/86 H 141/95 H Blood Pressure Mean 102 110 Pulse Ox 96 98 Oxygen Delivery Method Room Air Room Air 02/27/22 17:20 02/27/22 18:00 Temperature Temperature Source Pulse Rate 96 97 Respiratory Rate 19 H 15 Respiratory Effort Blood Pressure 123/85 H Blood Pressure Mean 97 Pulse Ox 93 92 Oxygen Delivery Method Room Air Room Air MDM MDM MDM Narrative Medical decision making narrative: Patient has right shoulder pain however it still reproduced, he has multiple comorbidities therefore cardiac work-up is Unremarkable. Because of the persistent shoulder pain which is ill reproduced I ordered CT, that this showed a subcapsular hematoma but it was quite small. It also showed his chronic mass in the liver that has not changed. I discussed the patient with surgery, Dr. Gale who advised to DC the Coumadin for now and follow-up with PCP and primary, the hematoma is quite small. Lab Data Labs: Laboratory Results - last 24 hr 02/27/22 02/27/22 02/27/22 15:28 15:28 15:28 WBC 13.1 H RBC 4.07 L Hgb 13.2 Hct 37.7 L MCV 92.6 MCH 32.4 H MCHC 35.0 RDW Std Deviation 45.5 H RDW Coeff of Roger 13.3 Plt Count 406 MPV 9.5 Immature Gran % (Auto) 0.300 Neut % (Auto) 69.1 Lymph % (Auto) 18.6 L [place] % (Auto) 11.2 H Eos % (Auto) 0.6 Baso % (Auto) 0.2 Absolute Neuts (auto) 9.1 H Absolute Lymphs (auto) 2.44 Nucleated RBC % 0 PT 52.5 H INR 5.9 H* Sodium 135 L Potassium 3.2 L Chloride 101 Carbon Dioxide 23.0 Anion Gap 11 BUN 21 H Creatinine 1.23 Estim Creat Clear Calc 38.18 Est GFR (MDRD) Af Amer 71 Est GFR (MDRD) Non-Af 59 L BUN/Creatinine Ratio 17.1 Glucose 135 H Calcium 8.9 Total Bilirubin 1.10 H AST 132 H ALT 63 H Alkaline Phosphatase 173 H Troponin I High Sens 15 Total Protein 7.7 Albumin 2.5 L Globulin 5.2 H Albumin/Globulin Ratio 0.5 L Lipase 76 Radiography Diagnostic Testing: Clinical Impression(s) from Imaging Studies Chest X-Ray 02/27/22 16:01 IMPRESSION: No acute findings in the chest. Electronically Signed: Jose Francisco Stapleton MD at 16:41 EDT , Chest CT 02/27/22 18:11 IMPRESSION: 1. Increasing consolidation in the right base which may represent atelectasis or pneumonia. 2. Hypodense fluid along the lateral aspect of the right lobe of the liver which may represent a subcapsular hematoma. Large mixed density mass is again seen within the liver and unchanged. Electronically Signed: Jose Francisco Stapleton MD at 19:22 EDT , ADDENDUM: 02/27/221936 IMPRESSION: 1. Increasing consolidation in the right base which may represent atelectasis or pneumonia. 2. Hypodense fluid along the lateral aspect of the right lobe of the liver which may represent a subcapsular hematoma. Large mixed density mass is again seen within the liver and unchanged. N.B. : The above Results were Read Back by Jose Francisco Stapleton MD to Dr. Cornelius Hooks MD, and understanding confirmed on 02/27/2022 19:30:17 (ET). Electronically Signed: Jose Francisco Stapleton MD at 19:22 EDT , cxr read by ar is negative Discharge Plan Triage Chief Complaint: Chest Pain ED Provider: Cornelius Castro Dx/Rx/DC Orders Clinical Impression: Subcapsular hematoma of liver, Supratherapeutic INR, Atrial fibrillation Instructions: AFib, ED Hematoma Prescriptions: New oxycodone-acetaminophen [Endocet] 5-325 mg tablet 1 tab PO Q8H PRN (Reason: pain) 3 Days Qty: 12 0RF No Action mecobalamin (vitamin B12) 1,000 mcg tablet,chewable 1,000 mcg PO DAILY cholecalciferol (vitamin D3) 50 mcg (2,000 unit) capsule 50 mcg PO DAILY melatonin 10 mg capsule 10 mg PO HS PRN (Reason: Sleep) metoprolol tartrate 25 mg tablet 25 mg PO BID Qty: 90 3RF furosemide [Lasix] 40 mg tablet 40 mg PO .PRN PRN (Reason: edema, SOB) Qty: 30 0RF levothyroxine 125 MCG tablet 125 mcg PO DAILY Label Comments: Low thyroid multivitamin with folic acid 1 TABLET tablet 1 tab PO DAILY Label Comments: SUPPLEMENT aspirin 81 MG tablet 81 mg PO QHS Label Comments: Blood thinner for heart health nitroglycerin 0.4 MG tablet 0.4 mg SUBLINGUAL Q5M PRN (Reason: Chest Pain) amiodarone 200 mg tablet 200 mg PO DAILY Rx Instructions: 100 mg PO daily; calcium carbonate-vitamin D3 [Calcium + D] 600 mg-5 mcg (200 unit) Tablet 1 tab PO QODAY warfarin 2.5 mg tablet 2.5 mg PO SUSA Protocol: Dose Management Condition: Tuesday Dose/Route: 2.5 mg Instruction: 1 x 2.5 mg tablet Condition: Tuesday Dose/Route: 5 mg Instruction: 1 x 5 mg tablet Condition: Tuesday Dose/Route: 5 mg Instruction: 1 x 5 mg tablet Condition: Tuesday Dose/Route: 5 mg Instruction: 1 x 5 mg tablet Condition: Dose/Route: 5 mg Instruction: 1 x 5 mg tablet Condition: Tuesday Dose/Route: 5 mg Instruction: 1 x 5 mg tablet Condition: Tuesday Dose/Route: 2.5 mg Instruction: 1 x 2.5 mg tablet Protocol Text: Adjustment Start Date: Tuesday02/19/22 INR Value: 2.6 INR Date: 02/19/22 Recheck Date: 03/05/22 Rx Instructions: 5mg on all other days warfarin 5 mg tablet See Rx Instructions .ROUTE .COMPLEX Protocol: Dose Management Condition: Tuesday Dose/Route: 2.5 mg Instruction: 1 x 2.5 mg tablet Condition: Tuesday Dose/Route: 5 mg Instruction: 1 x 5 mg tablet Condition: Tuesday Dose/Route: 5 mg Instruction: 1 x 5 mg tablet Condition: Tuesday Dose/Route: 5 mg Instruction: 1 x 5 mg tablet Condition: Dose/Route: 5 mg Instruction: 1 x 5 mg tablet Condition: Tuesday Dose/Route: 5 mg Instruction: 1 x 5 mg tablet Condition: Tuesday Dose/Route: 2.5 mg Instruction: 1 x 2.5 mg tablet Protocol Text: Adjustment Start Date: Tuesday02/19/22 INR Value: 2.6 INR Date: 02/19/22 Recheck Date: 03/05/22 Rx Instructions: 5 mg orally ;tue lorazepam [Ativan] 1 mg tablet 1 mg PO TID PRN (Reason: anxiety) Qty: 10 0RF hydrochlorothiazide 25 mg tablet 25 mg PO DAILY Qty: 90 3RF benazepril [Lotensin] 20 mg tablet 20 mg PO DAILY Qty: 90 3RF amlodipine 10 mg tablet See Rx Instructions .ROUTE .COMPLEX Qty: 90 3RF Dose Instruction: Take 1 tablet by mouth once daily for blood pressure Rx Instructions: Take 1 tablet by mouth once daily for blood pressure Primary Care Provider: Parish Marshall Referrals: Parish Marshall, [Primary Care Provider] - 2 Days Activity Restrictions/Additional Instructions: stop coumadin until seen by your doctors Disposition Disposition: Home, Self Care
--- NOTE | 2022-02-27 16:01 | RAD_ITS ---
EXAM: XR CHEST, 2 VIEWS CLINICAL INDICATION: pain TECHNIQUE: Frontal and lateral views of the chest. This report was created using [employer] report generation technology. COMPARISON: 02/23/2022 FINDINGS: LUNGS AND PLEURAL SPACES: There is stable scarring in the right lung base. No pneumothorax. No effusion. HEART: Unremarkable. Cardiac silhouette not enlarged. MEDIASTINUM: Central airways and mediastinal contour are unremarkable. BONES/JOINTS: Unremarkable. SOFT TISSUES: Unremarkable. UPPER ABDOMEN: Minimal elevation right hemidiaphragm. RAD/Chest PA and Lateral IMPRESSION: No acute findings in the chest. Electronically Signed: Jose Francisco Stapleton MD at 16:41 EDT ,
[2022-02-27 16:20] VITALS: BP 141/95; PULSE 101; RESP 18; O2SAT 98
[2022-02-27 16:23] LABS: Absolute Lymphocyte Count 2.44 X10^3/uL (0.83-4.51); Absolute Neutrophil Count 9.1 X10^3/uL (2.0-7.7); Basophil# 0.03 X10^3/uL; Basophil% 0.2 % (0-1); Eosinophil# 0.08 X10^3/uL; Eosinophils% 0.6 % (0-5); Hematocrit 37.7 % (40-54); Hemoglobin 13.2 g/dL (13.0-16.5); Lymphocyte # 2.44 X10^3/ul (0.83-4.51); Lymphocyte % 18.6 % (19-41); Mean Corpuscular Hgb 32.4 pg (27.0-32.0); Mean Corpuscular Volume 92.6 fL (80-94); Mean Platelet Vol. 9.5 fl (6.2-12.0); Monocyte# 1.47 X10^3/uL; Monocyte% 11.2 % (0-10); NRBC Flagged by Analyzer 0 % (0-5); Neutrophil # 9.05 X10^3/uL (2.7-7.7); Neutrophil % 69.1 % (47-70); Platelet Count 406 K/mm3 (150-450); RBC Distribution Width CV 13.3 % (11.6-14.6); RBC Distribution Width SD 45.5 fl (35.1-43.9); Red Blood Count 4.07 M/mm3 (4.6-6.2); White Blood Count 13.1 K/mm3 (4.4-11.0)
[2022-02-27 16:28] LABS: Prothrombin Time (Protime)PT. 52.5 SECONDS (11.7-14.9)
[2022-02-27 16:29] LABS: ALB/GLOB Ratio 0.5 RATIO (0.9-2.4); AST(SGOT) 132 U/L (15-37); Alanine Aminotransfer ALT/SGPT 63 U/L (16-61); Albumin, Serum 2.5 g/dL (3.2-5.0); Alkaline Phosphatase 173 U/L (45-117); Anion Gap 11 (5-15); BUN 21 mg/dL (7-18); BUN/Creat Ratio 17.1 RATIO (10-20); Calcium,Total 8.9 mg/dL (8.5-10.1); Chloride 101 mmol/L (98-107); Creatinine, Serum 1.23 mg/dL (0.70-1.30); EST Glomerular Filtration Rate 59 mL/min (>60); Est Glom Filt Rate - Afr Amer 71 mL/min (>60); Estimated Creatinine Clearance 38.18 ml/min; Globulin 5.2 g/dL (2.2-4.2); Glucose 135 mg/dL (74-106); Lipase 76 U/L (73-393); Potassium 3.2 mmol/L (3.5-5.1); Protein, Total 7.7 g/dL (6.4-8.2); Sodium Level 135 mmol/L (136-145); Troponin-I HS 15 pg/mL (3.0-78.0)
[2022-02-27 16:37] LABS: International Normalized Ratio 5.9
[2022-02-27 17:20] VITALS: BP 123/85; PULSE 96; RESP 19; O2SAT 93
[2022-02-27 18:00] VITALS: PULSE 97; RESP 15; O2SAT 92
--- NOTE | 2022-02-27 18:11 | CT_ITS ---
We are attempting to reach an attending provider to discuss findings. An addendum with communication details will be sent when the communication is complete. EXAM: CT CHEST WITHOUT INTRAVENOUS CONTRAST CLINICAL INDICATION: pain TECHNIQUE: Helically acquired images were obtained of the chest without intravenous contrast. This CT exam was performed using one or more of the following dose reduction techniques: automated exposure control, adjustment of the mA and/or kV according to patient size, and/or use of iterative reconstruction technique. This report was created using [employer] report generation technology. COMPARISON: 02/21/2022 FINDINGS: LUNGS AND PLEURAL SPACES: There is consolidation seen within the right lung base increased number of them may represent atelectasis or developing pneumonia. There are interstitial opacities which may represent scar in both lung bases. There is a noncalcified nodule in the right middle lobe and measures 5 mm and is unchanged from the reference exam. No pleural effusion or thickening. HEART: There are coronary artery calcifications present. Heart size is normal. No pericardial effusion. MEDIASTINUM: Unremarkable. No mediastinal or hilar adenopathy. Esophagus is unremarkable. No hiatal hernia. THYROID: Unremarkable. No thyroid lesions. BONES/JOINTS: Unremarkable. No suspicious lytic or blastic abnormality. VASCULATURE: Unremarkable. Thoracic aorta is non-dilated. LIVER: Large low density mass is present within the liver. There is now hyperdense fluid on the lateral aspect of the right lobe of the liver possibly representing a subcapsular hematoma. CT/Chest without Contrast IMPRESSION: 1. Increasing consolidation in the right base which may represent atelectasis or pneumonia. 2. Hypodense fluid along the lateral aspect of the right lobe of the liver which may represent a subcapsular hematoma. Large mixed density mass is again seen within the liver and unchanged. Electronically Signed: Jose Francisco Stapleton MD at 19:22 EDT ,
[2022-02-27] MEDS: oxyCODONE 5 MG Tablet PO ×2 (18:24→20:19)
== END 2022-02-27 20:31 | disposition home or self-care (01) ==
PROVIDERS: Emergency Provider Emergency Medicine; PCP Family Medicine; Visit Provider Emergency Medicine
DX: I48.91 Unspecified atrial fibrillation (principal); R79.1 Abnormal coagulation profile; I10 Essential (primary) hypertension; I25.10 Atherosclerotic heart disease of native coronary artery without angina pectoris; R16.0 Hepatomegaly, not elsewhere classified; M25.511 Pain in right shoulder; E78.5 Hyperlipidemia, unspecified; K76.89 Other specified diseases of liver
CPT/HCPCS: 71046; 71250; 80053; 83690; 84484; 85025; 85610; 93005; 99285; A4216